=== PATIENT | female | born 1965 | race Caucasian/White ===

== ENCOUNTER 2024-06-22 14:09 | Inpatient (IN) | payer OTHER, SELFPAY ==
[2024-06-22 14:21] VITALS: BP 117/80; BP 121/81; PULSE 83; PULSE 91; RESP 16; TEMP 36.6; O2SAT 95; O2SAT 96; BMI 37.8
[2024-06-22 16:00] VITALS: BP 112/72; PULSE 96; RESP 16; TEMP 36.8; O2SAT 96
--- NOTE | 2024-06-22 17:02 | ED.GENADULT ---
HPI - General Adult General Chief complaint: General Medical Stated complaint: PER STAFF @ [facility] MORE DECONDITIONED,NOT DOING ADL Time Seen by Provider: 06/22/24 16:15 Source: patient and EMS Mode of arrival: EMS Limitations: no limitations History of Present Illness ED Provider: Dr. Nikky Le HPI narrative: Patient comes to the emergency room via ambulance from a [facility]. According to EMS, the patient got sent to the emergency room because she has not been participating in her group activities and is refusing activities of daily living. Patient denies SI or HI. According to the patient, patient states that today she did not want to take a shower because it is cold and they sent her here to the emergency room. Related Data Allergies Allergy/AdvReac Type Severity Reaction Status Date / Time Penicillins [PENICILLINS] Allergy Unknown RASH Verified 06/22/24 14:24 quetiapine [From SEROQUEL] Allergy Unknown DYSTONIA Verified 06/22/24 14:24 Review of Systems Review of Systems: Constitutional : No Weight loss, No Fever, No Chills, No Night Sweats, No Fatigue, No Malaise ENT/Mouth : No Hearing loss, No Ear Pain, No Nasal Congestion, No Sinus Pain, No Hoarseness, No sore throat, No Rhinorrhea, No Swallowing Difficulty Eyes: No Eye Pain, No Swelling, No Redness, No Foreign Body, No Discharge, No Vision Changes Cardiovascular : No Chest Pain, No SOB, No Dyspnea on Exertion, No Orthopnea, No Edema, No Palpitations Respiratory : No Cough, No Sputum, No Wheezing, No Smoke Exposure, No Dyspnea Gastrointestinal : No Nausea, No Vomiting, No Diarrhea, No Constipation, No abdominal Pain, No Hematochezia, No Melena Genitourinary : no irregular bleeding, No Dysuria, No Urinary Frequency, No Hematuria, No Urinary Incontinence, No Urgency, No Flank Pain, No Urinary Flow Changes, No Hesitancy Musculoskeletal : No joint pain, No Myalgias, No Joint Swelling Skin : No Skin Lesions, No rash Neuro : No Weakness, No Numbness, No Paresthesias, No Loss of Consciousness, No Dizziness, No Headache Psych : No Anxiety/Panic, No Depression, no SI or HI Heme/Lymph: No Bruising, No Bleeding,No Lymphadenopathy Endocrine : No Polyuria, No Polydipsia, No Temperature Intolerance [facility] Past Medical History Medical History (Updated 06/23/24 @ 02:08 by Nikky Le MD) Alcohol dependence Social History Social History Alcohol intake: former Smoked in Last 30 Days: No Use of substances other than those prescribed or required for medical reasons: No Advance Directives: No Advance Directives Information Provided: No Do you have a plan to hurt others: No Plan Patient : No Physical Exam ED Vital Signs: Vital Signs - 24 hr 06/22/24 14:21 06/22/24 16:00 Temperature 97.9 F 98.2 F Pulse Rate 91 96 Respiratory Rate 16 16 Blood Pressure 121/81 112/72 Pulse Oximetry 96 96 Oxygen Delivery Method Room Air Room Air BMI result Body Mass Index 37.8 Const Other: Appearance: Alert. Oriented X3. No acute distress. Eyes: Pupils equal, round and reactive to light. ENT: Pharynx normal. Neck: Normal inspection. Neck supple. No lymph nodes noted. No crepitus CVS: Normal heart rate and rhythm. Pulses normal. Normal S1 and S2 Respiratory: No respiratory distress. Breath sounds normal. No Wheezing. No rales Abdomen: Soft and nontender. No rigidity. No distention. Skin: Skin warm and dry. Normal skin color. Normal skin turgor. Extremities: No lower extremity edema. No Lacerations. No Rash Neuro: Oriented X 3. No motor deficit. No sensory deficit. Moving all extremities. No slurred speech. CN 2 through 12 grossly intact Psych: calm, cooperative, normal affect Course Course Course Narrative: All of patient's labs pending Care team consult pending Patient is not SI or HI, section 12 is not indicated at this time. Medications Administered Discontinued Medications Generic Name Dose Route Start Last Admin Trade Name Radha PRN Reason Stop Dose Admin Trazodone HCl 50 mg 06/22/24 22:39 06/22/24 23:12 Trazodone Hcl 50 Mg Tablet PO 06/22/24 22:40 50 mg ONCE ONE Administration Medical Decision Making Medical Decision Making [facility] Narrative: My interpretation of labs, normal hematology and chemistry, normal LFTs, urinalysis negative, the urine has a large number of squamous epithelial cells, ETOH negative, ethanol level negative Care team evaluated the patient: Recommendations inpatient level of care for depression. Patient is on a Section 12 low. Lab Data 06/22/24 17:54 06/22/24 17:48 Labs: Lab Results 06/22/24 06/22/24 06/22/24 Range/Units 17:48 17:54 18:03 WBC 5.9 (4.8-10.8) X10*3/uL RBC 4.10 L (4.20-5.50) X10*6/uL Hgb 12.8 (12.0-16.0) g/dl Hct 38.2 (37.0-47.0) % MCV 93.2 (80.0-98.0) fL MCH 31.2 (27.0-33.0) pg MCHC 33.5 (31.0-35.0) g/dl RDW 12.5 (11.0-16.0) % Plt Count 273 (160-400) X10*3/uL MPV 8.5 L (9.4-12.3) fL Immature Gran % (Auto) 0.3 (0.0-0.4) % Neut % (Auto) 61.7 (45-73) % Lymph % (Auto) 30.6 (20-40) % [place] % (Auto) 5.4 (2-11) % Eos % (Auto) 1.5 (0-4) % Baso % (Auto) 0.5 (0-2) % Lymph # (Auto) 1.8 (1.2-4.9) X10*3/uL [place] # (Auto) 0.3 (0.1-1.2) X10*3/uL Eos # (Auto) 0.1 (0.0-0.4) X10*3/uL Baso # (Auto) 0.0 (0.0-0.2) X10*3/uL Abs Immat Gran (auto) 0.02 (0.00-0.03) X10*3/uL Absolute Neuts (auto) 3.6 (2.0-8.3) x10*3/uL Absolute Nucleated RBC 0.000 (0.0-0.012) X10*3/uL Nucleated RBC % (auto) 0.0 (0.0-0.2) /100WBC Sodium 142 (135-145) mmol/L Potassium 4.1 (3.3-5.1) mmol/L Chloride 108 (96-108) mmol/L Carbon Dioxide 23 (22-29) mmol/L Anion Gap 15 (12-20) BUN 11 (9-16) mg/dL Creatinine 0.63 (0.5-1.4) mg/dL Estim Creat Clear Calc 99.8 Estimated GFR > 60 Random Glucose 77 (60-115) mg/dL Calcium 9.4 (8.4-10.2) mg/dL Total Bilirubin 0.4 (0.0-1.0) mg/dL Direct Bilirubin 0.1 (0.0-0.5) mg/dL AST 22 (5-31) U/L ALT 21 (0-31) U/L Alkaline Phosphatase 52 (39-117) U/L Total Protein 6.8 (6.5-8.0) g/dL Albumin 4.2 (3.5-5.0) g/dL Urine Color Dark Yellow Urine Appearance Clear Urine pH 6.0 (5.0-9.0) Ur Specific [place] >= 1.030 H (1.005-1.025) Urine Protein Negative (Neg-Trace) mg/dL Urine Glucose (UA) Negative (Negative) mg/dL Urine Ketones 40 (Negative) mg/dL Urine Blood Negative (Negative) Urine Nitrite Negative (Negative) Ur Leukocyte Esterase Small (1+) H (Negative) Urine RBC 0-2 (0-2) /HPF Urine WBC 0-5 (0-5) /HPF Ur Squamous Epith Cells 6-10 (0-2) /HPF Urine Bacteria 2+ (None Seen) Hyaline Casts 3-5 (0-2) /LPF Salicylates < 5.0 L (15-30) mg/dL Urine Opiates Screen Not Detected (Not Detect) Ur Buprenorphine Scrn Not Detected (Not Detect) ng/mL Ur Oxycodone Screen Not Detected (Not Detect) ng/mL Urine Methadone Screen Not Detected (Not Detect) ng/mL Urine Fentanyl Screen Not Detected (Not Detect) Acetaminophen < 3 (<30) mcg/mL Ur Barbiturates Screen Not Detected (Not Detect) Ur Phencyclidine Scrn Not Detected (Not Detect) Ur Amphetamines Screen Not Detected (Not Detect) U Benzodiazepines Scrn Not Detected (Not Detect) Urine Cocaine Screen Not Detected (Not Detect) U Marijuana (THC) Screen Not Detected (Not Detect) Ethyl Alcohol < 10 mg/dL Critical Care Time Critical Care Time Critical Care Time: Yes Total Critical Care Time: 60 Attestation: I have personally provided critical care time. Time includes review of lab data, radiology results, discussion with consultants, and monitoring for potential decompensation. Intervention performed as documented. Discharge Plan Discharge Clinical Impression: Depression Patient Disposition: Still a Patient Print Language: Romanian
[2024-06-22 17:57] LABS: MANUAL DIFF FLAG NO
[2024-06-22 18:02] LABS: Basophils Percent Auto 0.5 % (0-2); Eosinophils Absolute Auto 0.1 X10*3/uL (0.0-0.4); Eosinophils Percent Auto 1.5 % (0-4); Hematocrit 38.2 % (37.0-47.0); Hemoglobin 12.8 g/dl (12.0-16.0); Imm Gran Abs Auto 0.02 X10*3/uL (0.00-0.03); Imm Gran Pct Auto 0.3 % (0.0-0.4); Lymphocytes Absolute Auto 1.8 X10*3/uL (1.2-4.9); Lymphocytes Percent Auto 30.6 % (20-40); Mean Corpuscular HGB Conc 33.5 g/dl (31.0-35.0); Mean Corpuscular Hemoglobin 31.2 pg (27.0-33.0); Mean Corpuscular Volume 93.2 fL (80.0-98.0); Mean Platelet Volume 8.5 fL (9.4-12.3); Monocytes Absolute Auto 0.3 X10*3/uL (0.1-1.2); Monocytes Percent Auto 5.4 % (2-11); Neutrophils Absolute Auto 3.6 x10*3/uL (2.0-8.3); Neutrophils Percent Auto 61.7 % (45-73); Platelet Count 273 X10*3/uL (160-400); Red Cell Distribution Width 12.5 % (11.0-16.0); White Blood Count 5.9 X10*3/uL (4.8-10.8)
[2024-06-22 18:09] LABS: Appearance Urine Clear; Color Urine Dark Yellow; Glucose Urine UA Negative (Negative); Leukocyte Esterase Urine Small (1+) (Negative); Nitrite Urine Negative (Negative); Specific Gravity - Urine >= 1.030 (1.005-1.025); UMIC TRIGGER UACC YES; Urine Blood Negative (Negative); Urine Ketones 40 mg/dL (Negative); Urine Protein Negative (Neg-Trace)
[2024-06-22 18:15] LABS: Ethanol < 10 mg/dL
[2024-06-22 18:16] LABS: Alanine Aminotransferase 21 U/L (0-31); Albumin Level 4.2 g/dL (3.5-5.0); Alkaline Phosphatase 52 U/L (39-117); Anion Gap 15 (12-20); Aspartate Amino Transferase 22 U/L (5-31); Bilirubin Direct 0.1 mg/dL (0.0-0.5); Bilirubin Total 0.4 mg/dL (0.0-1.0); Blood Urea Nitrogen 11 mg/dL (9-16); Calcium 9.4 mg/dL (8.4-10.2); Carbon Dioxide 23 mmol/L (22-29); Chloride 108 mmol/L (96-108); Creatinine Clr Calc Pharmacy 99.8; Estimated Glomerular Filt Rate > 60; Glucose Random 77 mg/dL (60-115); Potassium 4.1 mmol/L (3.3-5.1); Sodium 142 mmol/L (135-145); Total Protein 6.8 g/dL (6.5-8.0)
--- NOTE | 2024-06-22 18:17 | MHC.CARE ---
T/W spoke to Renaldo Cheng (marketing program manager) he reported that patient has been declining over the course of approximately the past 2 weeks. He reported that patient takes some of her medications, but not fully compliant. He reported that patient refused to meet with her psychiatrist who checks in with [facility] at [facility]. He also reported patient deficated on herself twice and was unable to take shower afterwards on her own, she required verbal direction of how to shower and where to go. He reported at baseline she is fully alert, able to care for self and stays in contact with her family. Renaldo reported that they will hold patients bed at the house for several days and is requesting to be in communication once dispo is determined.
[2024-06-22 18:18] LABS: Acetaminophen LAB < 3 mcg/mL (<30); Salicylate < 5.0 mg/dL (15-30)
[2024-06-22 18:22] LABS: Amphetamine Screen Urine Not Detected (Not Detect); Barbiturates, Urine Not Detected (Not Detect); Benzodiazepines Screen Urine Not Detected (Not Detect); Buprenorphine Scr Not Detected (Not Detect); Cannabinoid Screen Urine Not Detected (Not Detect); Cocaine Screen Urine Not Detected (Not Detect); Fentanyl, urine Not Detected (Not Detect); Methadone Screen, Urine Not Detected (Not Detect); Opiate Screen Urine Not Detected (Not Detect); Oxycodone Screen Urine Not Detected (Not Detect); Phencyclidine Screen Urine Not Detected (Not Detect)
[2024-06-22 18:26] LABS: Bacteria Urine 2+ (None Seen); RBC Urine 0-2 /HPF (0-2); UACC Culture Trigger YES; WBC Urine 0-5 /HPF (0-5)
--- NOTE | 2024-06-22 18:36 | PC.NURSE ---
CARE team at bedside to evaluate pt. pt continues to deny SI/HI - reports she just did not want to shower today . pt does not appear unkempt, non-odorous. she is slow to respond to questions, but a&Ox4, cooperative. flat in affect.
[2024-06-22] MEDS: traZODone HCL 50 MG TABLET PO (23:12)
--- NOTE | 2024-06-23 | ECG_ITS ---
Test Reason : med clearance Blood Pressure : */* mmHG Vent. Rate : 84 BPM Atrial Rate : 84 BPM P-R Int : 136 ms QRS Dur : 88 ms QT Int : 386 ms P-R-T Axes : 55 19 48 degrees QTcB Int : 456 ms Normal sinus rhythm Nonspecific T wave abnormality Abnormal ECG No previous ECGs available Referred By: Nikky Le Electronically Signed By: ALISIA DANG
--- NOTE | 2024-06-23 00:10 | PC.NURSE ---
client began talking loudly enough to hear from desk about being an alcoholic and how this ruined her life, she had walked out and was slow to follow directions to return to her room as peer was changed over. when in her room patient talked at staff and was redirected about this behavior. t/w asked her about addl medications, she spoke about being concerned about being homeless...
--- NOTE | 2024-06-23 04:39 | MHC.EDTECH ---
pt given AA book out of belongings to calm her down rn aware and allowed. book searched by t/w.
--- NOTE | 2024-06-23 04:51 | PC.NURSE ---
patient stands and staresat staff am i going to ? staf reassures client and t/w asked client if she was anxious and did she want anything for anxiety...patient stands silently.
--- NOTE | 2024-06-23 04:54 | PC.NURSE ---
patient seems to enjoy being around staff, watching staff
[2024-06-23] MEDS: LORazepam 0.5 MG TABLET PO ×3 (05:24→22:14)
[2024-06-23 08:40] VITALS: BP 130/87; PULSE 87; RESP 16; TEMP 36.9; O2SAT 99
[2024-06-23] MEDS: Venlafaxine HCl ER 150 MG CAP.ER.24H 300 MG PO (10:37)
[2024-06-23] MEDS: Omeprazole 20 MG CAPSULE.DR PO (10:37)
[2024-06-23] MEDS: buPROPion HCl XL 300 MG TAB.ER.24H PO (10:38)
--- NOTE | 2024-06-23 10:41 | PC.NURSE ---
this RN resumed care of pt at 0645. pt calm/cooperative throughout the shift at this time. ekg performed by tech as pt will be presented to the admissions team. med rec completed at this time - medications ordered by provider. ANA LUISA Marshall ([facility] - [phone]) was called at this time d/t Loxapine being unavailable at [facility]. Joanna states that staff member from [facility] will bring in the medication. will send to pharmacy when able. plan of care ongoing.
--- NOTE | 2024-06-23 11:10 | PC.NURSE ---
medication delivered from employee from [facility]. medication sent up to pharmacy at this time. will administer medication when able.
[2024-06-23 15:41] VITALS: BP 139/92; PULSE 93; RESP 16; TEMP 36.3; O2SAT 96
[2024-06-23 16:03] VITALS: BMI 30.5
--- NOTE | 2024-06-23 19:24 | PC.ADMIT ---
Bess was admitted to on a 3 day on 06/23/23 from [facility] for treatment of unspecified depressive disorder. Prior to admission, she was at [facility] and decompensated, not taking care of her ADL's and per crisis, was medication non-compliant. Upon admission she is calm, cooperative and fourthcoming. She reports she came to the hospital due to increased depression and low self-worth. She reports she has a history of alcohol use and has been sober since March of 2024 and states I have no desire to drink again. She reports she has had ongoing anxiety and depression due to low self esteem and possibility of being homeless. She denies SI/HI/AVH but does report a history of paranoia when taking Geodon but denies currently. She is focused, linear and logical. She reports difficulty chewing due to having no teeth but has a good appetite. She reports a history of insomnia which she takes medications for. She reports constipation on and off but reports having a BM today while in the ED. She denies current substance use and her tox screen was negative. She reports having chronic back pain and arthritis of bilateral knees as well as asthma that is under control. Skin check unremarkable. She was placed on 15 minute checks for safety.
[2024-06-23 19:32] LABS: Alanine Aminotransferase 27 U/L (0-31); Albumin Level 4.3 g/dL (3.5-5.0); Alkaline Phosphatase 53 U/L (39-117); Anion Gap 10 (12-20); Aspartate Amino Transferase 23 U/L (5-31); Bilirubin Total 0.3 mg/dL (0.0-1.0); Blood Urea Nitrogen 11 mg/dL (9-16); Calcium 9.7 mg/dL (8.4-10.2); Carbon Dioxide 28 mmol/L (22-29); Chloride 108 mmol/L (96-108); Creatinine Clr Calc Pharmacy 93.4; Estimated Glomerular Filt Rate > 60; Glucose Random 119 mg/dL (60-115); Potassium 3.7 mmol/L (3.3-5.1); Sodium 142 mmol/L (135-145)
[2024-06-23] MEDS: traZODone HCL 50 MG TABLET 150 MG PO ×2 (22:13→22:42)
[2024-06-23] MEDS: LOXAPINE 25 MG 25 EACH PO (22:14)
[2024-06-23] MEDS: LOXAPINE 10 MG 3 EACH PO (22:14)
[2024-06-23] MEDS: Docusate Sodium 100 MG CAPSULE PO (22:14)
[2024-06-24 07:30] VITALS: BP 118/74; PULSE 89; RESP 16; TEMP 36.3; O2SAT 97
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
[2024-06-24] MEDS: Docusate Sodium 100 MG CAPSULE PO ×2 (09:23→20:53)
[2024-06-24] MEDS: buPROPion HCl XL 300 MG TAB.ER.24H PO (09:23)
[2024-06-24] MEDS: Multivitamin TABLET 1 TAB PO (09:23)
[2024-06-24] MEDS: LORazepam 0.5 MG TABLET PO ×3 (09:23→20:54)
[2024-06-24] MEDS: Omeprazole 20 MG CAPSULE.DR PO (09:24)
[2024-06-24] MEDS: LOXAPINE 10 MG 3 EACH PO ×2 (09:24→20:52)
[2024-06-24] MEDS: Venlafaxine HCl ER 150 MG CAP.ER.24H 300 MG PO (09:24)
[2024-06-24 13:03] LABS: Cholesterol 166 mg/dL (<200); HDL Cholesterol 41 mg/dL (>40); LDL Cholesterol Calculated 106 mg/dL (<100); Triglycerides 96 mg/dL (<150)
[2024-06-24 20:00] VITALS: BP 112/70; PULSE 97; RESP 14; TEMP 36.4; O2SAT 95
[2024-06-24] MEDS: LOXAPINE 25 MG 25 EACH PO (20:51)
[2024-06-24] MEDS: diphenhydrAMINE HCL 25 MG CAPSULE 50 MG PO (20:53)
[2024-06-24] MEDS: traZODone HCL 100 MG TABLET 300 MG PO (20:54)
[2024-06-25] MEDS: Nicotine Polacrilex Lozenge 2 MG LOZENGE BUCCAL (06:52)
[2024-06-25 07:31] VITALS: BP 120/79; PULSE 115; RESP 20; TEMP 36.4; O2SAT 94
[2024-06-25] MEDS: Nicotine 21 MG PATCH.TD24 TRANSDERMA (08:38)
[2024-06-25] MEDS: Omeprazole 20 MG CAPSULE.DR PO (08:39)
[2024-06-25] MEDS: buPROPion HCl XL 300 MG TAB.ER.24H PO (08:39)
[2024-06-25] MEDS: Multivitamin TABLET 1 TAB PO (08:39)
[2024-06-25] MEDS: Venlafaxine HCl ER 150 MG CAP.ER.24H 300 MG PO (08:39)
[2024-06-25] MEDS: Docusate Sodium 100 MG CAPSULE PO ×2 (08:39→22:18)
[2024-06-25] MEDS: LORazepam 0.5 MG TABLET PO ×2 (08:39→15:20)
[2024-06-25] MEDS: Nystatin Powder 15 GM BOTTLE 1 APPL TOPICAL (08:40)
[2024-06-25] MEDS: LOXAPINE 10 MG 3 EACH PO ×2 (10:28→22:18)
[2024-06-25] MEDS: hydrOXYzine HCL 25 MG TABLET PO (11:29)
[2024-06-25] MEDS: Naltrexone HCl 50 MG TABLET PO (15:47)
--- NOTE | 2024-06-25 16:10 | P.PNPSI_ITS ---
Subjective Subjective Date of Service: 06/25/24 Reason For Visit: Crisis Subjective Notes: Conditional Voluntary Interim History: Pt staring, reports she hears staff here talking about her, saying that she is a pig. She is fixated that she is going to be forced to have ECT. She reports other people are acting very strange towards her. She reports other people can see her naked. She reports she can read people's thoughts and they are all about her. She denies SI/HI. She is suspicious and guarded. Medication Compliance: Yes Diagnostics Vital Signs (24Hr): Vital Signs - 24 hr 06/24/24 20:00 06/25/24 07:31 Temperature 97.5 F 97.5 F Pulse Rate 97 115 H Respiratory Rate 14 20 Blood Pressure 112/70 120/79 Pulse Oximetry 95 94 Oxygen Delivery Method Room Air Room Air BMI result Body Mass Index 30.5 Labs 06/22/24 17:54 06/23/24 19:02 Labs: Laboratory Results - last 48 hr 06/23/24 06/24/24 19:02 11:37 Sodium 142 Potassium 3.7 Chloride 108 Carbon Dioxide 28 Anion Gap 10 L BUN 11 Creatinine 0.60 Estim Creat Clear Calc 93.4 Estimated GFR > 60 Random Glucose 119 H Calcium 9.7 Total Bilirubin 0.3 AST 23 ALT 27 Alkaline Phosphatase 53 Total Protein 7.0 Albumin 4.3 Triglycerides 96 Cholesterol 166 LDL Cholesterol, Calc 106 H HDL Cholesterol 41 Medications Medications Current Medications Acetaminophen (Acetaminophen 325 Mg Tablet) 650 mg PO Q6H PRN PRN Reason: Headache/Pain Mild Scale (1-3) Al Hydroxide/Mg Hydroxide (Magnesium Hydrox/Alum Hydrox 30 Ml Oral.Susp) 30 ml PO Q6H PRN PRN Reason: Heartburn/Nausea Bupropion HCl (Bupropion Hcl Xl 300 Mg Tab.Er.24h) 300 mg PO DAILY [facility] Last Admin: 06/25/24 08:39 Dose: 300 mg Diphenhydramine HCl (Diphenhydramine Hcl 25 Mg Capsule) 50 mg PO BEDTIME [facility] Last Admin: 06/24/24 20:53 Dose: 50 mg Docusate Sodium (Docusate Sodium 100 Mg Capsule) 100 mg PO BID [facility] Last Admin: 06/25/24 08:39 Dose: 100 mg Hydroxyzine HCl (Hydroxyzine Hcl 25 Mg Tablet) 25 mg PO Q6H PRN PRN Reason: Anxiety Last Admin: 06/25/24 11:29 Dose: 25 mg Lorazepam (Lorazepam 0.5 Mg Tablet) 0.5 mg PO TID [facility] Last Admin: 06/25/24 15:20 Dose: 0.5 mg Magnesium Hydroxide (Milk Of Magnesia 30 Ml Oral.Susp) 30 ml PO DAILY PRN PRN Reason: Constipation Multivitamins/Vitamin C (Multivitamin Tablet) 1 tab PO DAILY [facility] Last Admin: 06/25/24 08:39 Dose: 1 tab Naltrexone HCl (Naltrexone Hcl 50 Mg Tablet) 50 mg PO DAILY PRN PRN Reason: Withdrawal Symptoms Last Admin: 06/25/24 15:47 Dose: 50 mg Nicotine (Nicotine 21 Mg Patch.Td24) 21 mg TRANSDERMA DAILY [facility] Last Admin: 06/25/24 08:38 Dose: 21 mg Nicotine Polacrilex (Nicotine Polacrilex Lozenge 2 Mg Lozenge) 2 mg BUCCAL Q1H PRN PRN Reason: Nicotine Cravings Last Admin: 06/25/24 06:52 Dose: 2 mg Pt Own (Loxapine 25 (Mg)) 25 mg PO BEDTIME [facility] Last Admin: 06/24/24 20:51 Dose: 25 mg Pt Own (Loxapine 10 (Mg)) 3 each PO BID [facility] Last Admin: 06/25/24 10:28 Dose: 3 each Nystatin (Nystatin Powder 15 Gm Bottle) 1 appl TOPICAL DAILY [facility]; Protocol Last Admin: 06/25/24 08:40 Dose: 1 appl Omeprazole (Omeprazole 20 Mg Capsule.Dr) 20 mg PO DAILY [facility] Last Admin: 06/25/24 08:39 Dose: 20 mg Trazodone HCl (Trazodone Hcl 100 Mg Tablet) 300 mg PO BEDTIME [facility] Last Admin: 06/24/24 20:54 Dose: 300 mg Venlafaxine HCl (Venlafaxine Hcl Er 150 Mg Cap.Er.24h) 300 mg PO DAILY [facility] Last Admin: 06/25/24 08:39 Dose: 300 mg Allergies Allergies Allergy/AdvReac Type Severity Reaction Status Date / Time Penicillins [PENICILLINS] Allergy Unknown RASH Verified 06/22/24 14:24 quetiapine [From SEROQUEL] Allergy Unknown DYSTONIA Verified 06/22/24 14:24 Assessment & Plan Assessment & Plan (1) Schizoaffective disorder: Status: Acute Code(s): F25.9 - Schizoaffective disorder, unspecified (2) PTSD (post-traumatic stress disorder): Status: Acute Code(s): F43.10 - Post-traumatic stress disorder, unspecified (3) Alcohol use disorder: Status: Acute Code(s): F10.90 - Alcohol use, unspecified, uncomplicated Plan Patient is a 58-year-old female with history of schizoaffective disorder, PTSD and alcohol use disorder, who presented to ER via ambulance from [facility] due to increased depression and not attending to her ADLs secondary to medication noncompliance. Plan: 06/25 very psychotic, with paranoid delusions. She also presents with catatonia like symptoms including blank staring. She is on 3 antidepressants high doses, that will only worsen psychosis. will dc wellbutrin, effexor, will cut down trazodone. Will increase ativan 1mg po TID. will continue loxepine. Reason for continued inpatient stay Substantial Risk for: inability to function Time Spent With Patient Time: Total time managing care of this patient today ____ minutes.
[2024-06-25] MEDS: LORazepam 1 MG TABLET PO ×2 (17:10→22:17)
[2024-06-25] MEDS: OLANZapine 5 MG TABLET PO (17:11)
[2024-06-25 20:00] VITALS: BP 98/67; PULSE 90; RESP 16; TEMP 36.4; O2SAT 91
[2024-06-25] MEDS: traZODone HCL 100 MG TABLET 300 MG PO (22:17)
[2024-06-25] MEDS: diphenhydrAMINE HCL 25 MG CAPSULE 50 MG PO (22:17)
[2024-06-25] MEDS: LOXAPINE 25 MG 25 EACH PO (22:18)
[2024-06-26 08:00] VITALS: BP 127/61; PULSE 89; RESP 18; TEMP 36.4; O2SAT 93
[2024-06-26] MEDS: Omeprazole 20 MG CAPSULE.DR PO (09:29)
[2024-06-26] MEDS: Multivitamin TABLET 1 TAB PO (09:29)
[2024-06-26] MEDS: Docusate Sodium 100 MG CAPSULE PO ×2 (09:29→22:01)
[2024-06-26] MEDS: LORazepam 1 MG TABLET PO ×3 (09:29→22:01)
[2024-06-26] MEDS: Nystatin Powder 15 GM BOTTLE 1 APPL TOPICAL (09:36)
[2024-06-26] MEDS: LOXAPINE 10 MG 3 EACH PO ×2 (09:38→22:09)
--- NOTE | 2024-06-26 10:29 | P.PNPSI_ITS ---
Subjective Subjective Date of Service: 06/26/24 Reason For Visit: Crisis Subjective Notes: Conditional Voluntary Interim History: Pt presents with same presentation as yesterday. Pt staring, reports she hears staff here talking about her, saying that she is a pig. She is fixated that she is going to be forced to have ECT. She reports other people are acting very strange towards her. She reports other people can see her naked. She reports she can read people's thoughts and they are all about her. She denies SI/HI. She is suspicious and guarded. Review of Systems Review of Systems Constitutional : No Weight loss, No Fever, No Chills, No Night Sweats, No Fatigue, No Malaise ENT/Mouth : No Hearing loss, No Ear Pain, No Nasal Congestion, No Sinus Pain, No Hoarseness, No sore throat, No Rhinorrhea, No Swallowing Difficulty Eyes: No Eye Pain, No Swelling, No Redness, No Foreign Body, No Discharge, No Vision Changes Cardiovascular : No Chest Pain, No SOB, No Dyspnea on Exertion, No Orthopnea, No Edema, No Palpitations Respiratory : No Cough, No Sputum, No Wheezing, No Smoke Exposure, No Dyspnea Gastrointestinal : No Nausea, No Vomiting, No Diarrhea, No Constipation, No abdominal Pain, No Hematochezia, No Melena Genitourinary : no irregular bleeding, No Dysuria, No Urinary Frequency, No Hematuria, No Urinary Incontinence, No Urgency, No Flank Pain, No Urinary Flow Changes, No Hesitancy Musculoskeletal : No joint pain, No Myalgias, No Joint Swelling Skin : No Skin Lesions, No rash Neuro : No Weakness, No Numbness, No Paresthesias, No Loss of Consciousness, No Dizziness, No Headache Psych : No Anxiety/Panic, No Depression, no SI or HI Heme/Lymph: No Bruising, No Bleeding,No Lymphadenopathy Endocrine : No Polyuria, No Polydipsia, No Temperature Intolerance Constitutional: Reports as per HPI Eyes: Reports as per HPI Reports as per HPI Cardiovascular: Reports as per HPI Respiratory: Reports as per HPI Gastrointestinal: Reports as per HPI Musculoskeletal: Reports as per HPI Skin/Breast: Reports as per HPI Reports as per HPI Psychiatric: Reports as per HPI Endocrine: Reports as per HPI Hematologic/Lymphatic: Reports as per HPI Allergic/Immunologic: Reports as per HPI Diagnostics Vital Signs (24Hr): Vital Signs - 24 hr 06/25/24 20:00 06/26/24 08:00 Temperature 97.6 F 97.5 F Pulse Rate 90 89 Respiratory Rate 16 18 Blood Pressure 98/67 127/61 Pulse Oximetry 91 L 93 Oxygen Delivery Method Room Air Room Air BMI result Body Mass Index 30.5 Labs 06/22/24 17:54 06/23/24 19:02 Labs: Laboratory Results - last 48 hr 06/24/24 11:37 Triglycerides 96 Cholesterol 166 LDL Cholesterol, Calc 106 H HDL Cholesterol 41 Medications Medications Current Medications Acetaminophen (Acetaminophen 325 Mg Tablet) 650 mg PO Q6H PRN PRN Reason: Headache/Pain Mild Scale (1-3) Al Hydroxide/Mg Hydroxide (Magnesium Hydrox/Alum Hydrox 30 Ml Oral.Susp) 30 ml PO Q6H PRN PRN Reason: Heartburn/Nausea Diphenhydramine HCl (Diphenhydramine Hcl 25 Mg Capsule) 50 mg PO BEDTIME [facility] Last Admin: 06/25/24 22:17 Dose: 50 mg Docusate Sodium (Docusate Sodium 100 Mg Capsule) 100 mg PO BID [facility] Last Admin: 06/26/24 09:29 Dose: 100 mg Hydroxyzine HCl (Hydroxyzine Hcl 25 Mg Tablet) 25 mg PO Q6H PRN PRN Reason: Anxiety Last Admin: 06/25/24 11:29 Dose: 25 mg Lorazepam (Lorazepam 1 Mg Tablet) 1 mg PO TID [facility] Last Admin: 06/26/24 09:29 Dose: 1 mg Magnesium Hydroxide (Milk Of Magnesia 30 Ml Oral.Susp) 30 ml PO DAILY PRN PRN Reason: Constipation Multivitamins/Vitamin C (Multivitamin Tablet) 1 tab PO DAILY [facility] Last Admin: 06/26/24 09:29 Dose: 1 tab Naltrexone HCl (Naltrexone Hcl 50 Mg Tablet) 50 mg PO DAILY PRN PRN Reason: Withdrawal Symptoms Last Admin: 06/25/24 15:47 Dose: 50 mg Nicotine (Nicotine 21 Mg Patch.Td24) 21 mg TRANSDERMA DAILY [facility] Last Admin: 06/26/24 09:29 Dose: Not Given Nicotine Polacrilex (Nicotine Polacrilex Lozenge 2 Mg Lozenge) 2 mg BUCCAL Q1H PRN PRN Reason: Nicotine Cravings Last Admin: 06/25/24 06:52 Dose: 2 mg Pt Own (Loxapine 25 (Mg)) 25 mg PO BEDTIME [facility] Last Admin: 06/25/24 22:18 Dose: 25 mg Pt Own (Loxapine 10 (Mg)) 3 each PO BID [facility] Last Admin: 06/26/24 09:38 Dose: 3 each Nystatin (Nystatin Powder 15 Gm Bottle) 1 appl TOPICAL DAILY [facility]; Protocol Last Admin: 06/26/24 09:36 Dose: 1 appl Omeprazole (Omeprazole 20 Mg Capsule.Dr) 20 mg PO DAILY [facility] Last Admin: 06/26/24 09:29 Dose: 20 mg Trazodone HCl (Trazodone Hcl 100 Mg Tablet) 300 mg PO BEDTIME [facility] Last Admin: 06/25/24 22:17 Dose: 300 mg Allergies Allergies Allergy/AdvReac Type Severity Reaction Status Date / Time Penicillins [PENICILLINS] Allergy Unknown RASH Verified 06/22/24 14:24 quetiapine [From SEROQUEL] Allergy Unknown DYSTONIA Verified 06/22/24 14:24 Assessment & Plan Assessment & Plan (1) Schizoaffective disorder: Status: Acute Code(s): F25.9 - Schizoaffective disorder, unspecified (2) PTSD (post-traumatic stress disorder): Status: Acute Code(s): F43.10 - Post-traumatic stress disorder, unspecified (3) Alcohol use disorder: Status: Acute Code(s): F10.90 - Alcohol use, unspecified, uncomplicated Plan Patient is a 58-year-old female with history of schizoaffective disorder, PTSD and alcohol use disorder, who presented to ER via ambulance from [facility] due to increased depression and not attending to her ADLs secondary to medication noncompliance. Plan: 06/25 very psychotic (AH), with paranoid delusions. She also presents with catatonia like symptoms including blank staring. She is on 3 antidepressants high doses, that will only worsen psychosis. will dc wellbutrin, effexor, will cut down trazodone. Will increase ativan 1mg po TID. will continue loxepine. 06/26 continue tx. Reason for continued inpatient stay Substantial Risk for: inability to function Time Spent With Patient Time: Total time managing care of this patient today ____ minutes.
[2024-06-26 19:50] VITALS: BP 106/63; PULSE 84; RESP 14; TEMP 36.6; O2SAT 93
[2024-06-26] MEDS: diphenhydrAMINE HCL 25 MG CAPSULE 50 MG PO (22:00)
[2024-06-26] MEDS: traZODone HCL 50 MG TABLET 150 MG PO (22:01)
[2024-06-26] MEDS: LOXAPINE 25 MG 25 EACH PO (22:09)
[2024-06-27 07:35] VITALS: BP 110/75; PULSE 100; RESP 14; TEMP 36.2; O2SAT 96
--- NOTE | 2024-06-27 09:02 | P.PNPSI_ITS ---
Subjective Subjective Date of Service: 06/27/24 Reason For Visit: Crisis Subjective Notes: Conditional Voluntary Interim History: Keeping to self. retracted 3 day notice. showered. thought blocking with delayed responses; when asked if this is normal for patient, she stated, this is what drugs and alcohol did to my brain . Patient anxious regarding ECT, she reports discussing ECT once with Dr. Alegre but don't want it ; pt was informed that was not part of the treatment plan at this time. She expressed concern regarding the cameras on the unit and asked if they are able to see her while she is in the shower or room; pt was educated that cameras are only in common areas. she denies SI/HI/VH/AH. Medication Compliance: Yes Side effects from medications: No Attending Groups: No Review of Systems Constitutional: Reports as per HPI Eyes: Reports as per HPI Reports as per HPI Cardiovascular: Reports as per HPI Respiratory: Reports as per HPI Gastrointestinal: Reports as per HPI Musculoskeletal: Reports as per HPI Skin/Breast: Reports as per HPI Reports as per HPI Psychiatric: Reports as per HPI Endocrine: Reports as per HPI Hematologic/Lymphatic: Reports as per HPI Allergic/Immunologic: Reports as per HPI Mental Status Exam Mental Status Exam Narrative: Pt is alert and oriented; behavior is cooperative and calm; dressed in hospital attire; mood is described as okay , blunted affect; eye contact appropriate; Speech is normal rate, volume, not pressured; appears thought blocking, delayed responses to questions; denies SI/HI/VH/AH. Diagnostics Vital Signs (24Hr): Vital Signs - 24 hr 06/26/24 19:50 06/27/24 07:35 Temperature 97.9 F 97.2 F Pulse Rate 84 100 Respiratory Rate 14 14 Blood Pressure 106/63 110/75 Pulse Oximetry 93 96 Oxygen Delivery Method Room Air Room Air BMI result Body Mass Index 30.5 Labs 06/22/24 17:54 06/23/24 19:02 Medications Medications Current Medications Acetaminophen (Acetaminophen 325 Mg Tablet) 650 mg PO Q6H PRN PRN Reason: Headache/Pain Mild Scale (1-3) Al Hydroxide/Mg Hydroxide (Magnesium Hydrox/Alum Hydrox 30 Ml Oral.Susp) 30 ml PO Q6H PRN PRN Reason: Heartburn/Nausea Diphenhydramine HCl (Diphenhydramine Hcl 25 Mg Capsule) 50 mg PO BEDTIME [facility] Last Admin: 06/26/24 22:00 Dose: 50 mg Docusate Sodium (Docusate Sodium 100 Mg Capsule) 100 mg PO BID [facility] Last Admin: 06/26/24 22:01 Dose: 100 mg Hydroxyzine HCl (Hydroxyzine Hcl 25 Mg Tablet) 25 mg PO Q6H PRN PRN Reason: Anxiety Last Admin: 06/25/24 11:29 Dose: 25 mg Lorazepam (Lorazepam 1 Mg Tablet) 1 mg PO TID [facility] Last Admin: 06/26/24 22:01 Dose: 1 mg Magnesium Hydroxide (Milk Of Magnesia 30 Ml Oral.Susp) 30 ml PO DAILY PRN PRN Reason: Constipation Multivitamins/Vitamin C (Multivitamin Tablet) 1 tab PO DAILY [facility] Last Admin: 06/26/24 09:29 Dose: 1 tab Naltrexone HCl (Naltrexone Hcl 50 Mg Tablet) 50 mg PO DAILY PRN PRN Reason: Withdrawal Symptoms Last Admin: 06/25/24 15:47 Dose: 50 mg Nicotine (Nicotine 21 Mg Patch.Td24) 21 mg TRANSDERMA DAILY [facility] Last Admin: 06/26/24 09:29 Dose: Not Given Nicotine Polacrilex (Nicotine Polacrilex Lozenge 2 Mg Lozenge) 2 mg BUCCAL Q1H PRN PRN Reason: Nicotine Cravings Last Admin: 06/25/24 06:52 Dose: 2 mg Pt Own (Loxapine 25 (Mg)) 25 mg PO BEDTIME [facility] Last Admin: 06/26/24 22:09 Dose: 25 mg Pt Own (Loxapine 10 (Mg)) 3 each PO BID [facility] Last Admin: 06/26/24 22:09 Dose: 3 each Nystatin (Nystatin Powder 15 Gm Bottle) 1 appl TOPICAL DAILY [facility]; Protocol Last Admin: 06/26/24 09:36 Dose: 1 appl Omeprazole (Omeprazole 20 Mg Capsule.Dr) 20 mg PO DAILY [facility] Last Admin: 06/26/24 09:29 Dose: 20 mg Trazodone HCl (Trazodone Hcl 50 Mg Tablet) 150 mg PO BEDTIME [facility] Last Admin: 06/26/24 22:01 Dose: 150 mg Allergies Allergies Allergy/AdvReac Type Severity Reaction Status Date / Time Penicillins [PENICILLINS] Allergy Unknown RASH Verified 06/22/24 14:24 quetiapine [From SEROQUEL] Allergy Unknown DYSTONIA Verified 06/22/24 14:24 Assessment & Plan Assessment & Plan (1) Schizoaffective disorder: Status: Acute Code(s): F25.9 - Schizoaffective disorder, unspecified (2) PTSD (post-traumatic stress disorder): Status: Acute Code(s): F43.10 - Post-traumatic stress disorder, unspecified (3) Alcohol use disorder: Status: Acute Code(s): F10.90 - Alcohol use, unspecified, uncomplicated Plan Patient is a 58-year-old female with history of schizoaffective disorder, PTSD and alcohol use disorder, who presented to ER via ambulance from [facility] due to increased depression and not attending to her ADLs secondary to medication noncompliance. Plan: 06/25 very psychotic (AH), with paranoid delusions. She also presents with catatonia like symptoms including blank staring. She is on 3 antidepressants high doses, that will only worsen psychosis. will dc wellbutrin, effexor, will cut down trazodone. Will increase ativan 1mg po TID. will continue loxepine. 06/26 continue tx. 06/27: Keeping to self. retracted 3 day notice. showered. thought blocking with delayed responses; when asked if this is normal for patient, she stated, this is what drugs and alcohol did to my brain . Patient anxious regarding ECT, she reports discussing ECT once with Dr. Alegre but don't want it ; pt was informed that was not part of the treatment plan at this time. She expressed concern regarding the cameras on the unit and asked if they are able to see her while she is in the shower or room; pt was educated that cameras are only in common areas. she denies SI/HI/VH/AH. Continue current tx plan. Patient educated on: diagnosis and medication risk/benefits Reason for continued inpatient stay Substantial Risk for: med/psych decompensation Time Spent With Patient Time: Total time managing care of this patient today _20___ minutes.
[2024-06-27] MEDS: Nicotine 21 MG PATCH.TD24 TRANSDERMA (09:05)
[2024-06-27] MEDS: Docusate Sodium 100 MG CAPSULE PO ×2 (09:06→22:22)
[2024-06-27] MEDS: Omeprazole 20 MG CAPSULE.DR PO (09:06)
[2024-06-27] MEDS: LORazepam 1 MG TABLET PO ×3 (09:06→22:23)
[2024-06-27] MEDS: Multivitamin TABLET 1 TAB PO (09:06)
[2024-06-27] MEDS: LOXAPINE 10 MG 3 EACH PO ×2 (09:29→22:23)
[2024-06-27] MEDS: Nystatin Powder 15 GM BOTTLE 1 APPL TOPICAL (09:32)
[2024-06-27 19:59] VITALS: BP 104/65; PULSE 80; RESP 16; TEMP 36.4; O2SAT 92
[2024-06-27] MEDS: diphenhydrAMINE HCL 25 MG CAPSULE 50 MG PO (22:22)
[2024-06-27] MEDS: traZODone HCL 50 MG TABLET 150 MG PO (22:23)
[2024-06-27] MEDS: LOXAPINE 25 MG 25 EACH PO (22:23)
[2024-06-28 08:00] VITALS: BP 117/71; PULSE 106; RESP 16; TEMP 36.7; O2SAT 95
[2024-06-28] MEDS: Omeprazole 20 MG CAPSULE.DR PO (09:16)
[2024-06-28] MEDS: Docusate Sodium 100 MG CAPSULE PO ×2 (09:16→21:18)
[2024-06-28] MEDS: Multivitamin TABLET 1 TAB PO (09:16)
[2024-06-28] MEDS: LORazepam 1 MG TABLET PO (09:16)
[2024-06-28] MEDS: Nystatin Powder 15 GM BOTTLE 1 APPL TOPICAL (09:21)
--- NOTE | 2024-06-28 09:39 | HO.PSYCHPN ---
Subjective Subjective Date of Service: 06/28/24 Reason For Visit: Crisis Subjective Notes: Conditional Voluntary Interim History: pt continues thought blocking with delayed responses; please see SW note regarding pt's baseline and collateral obtained. Pt perseverative today regarding seeing her daughter before she dies; pt stated, I don't want to . My daughter has a retraining order on me and I want to see her before I . Start: Risperidal 1mg PO BID Increase Ativan to 2mg PO TID Medication Compliance: Yes Side effects from medications: No Attending Groups: No Review of Systems Constitutional: Reports as per HPI Eyes: Reports as per HPI Reports as per HPI Cardiovascular: Reports as per HPI Respiratory: Reports as per HPI Gastrointestinal: Reports as per HPI Musculoskeletal: Reports as per HPI Skin/Breast: Reports as per HPI Reports as per HPI Psychiatric: Reports as per HPI Endocrine: Reports as per HPI Hematologic/Lymphatic: Reports as per HPI Allergic/Immunologic: Reports as per HPI Mental Status Exam Mental Status Exam Narrative: Pt is alert and oriented; behavior is cooperative and calm; dressed in hospital attire; mood is described as anxious , blunted affect; eye contact appropriate; Speech is normal volume, not pressured; appears thought blocking, delayed responses to questions;focused on possibly dying today; denies SI/HI/VH/AH. Diagnostics Vital Signs (24Hr): Vital Signs - 24 hr 06/27/24 19:59 06/28/24 08:00 Temperature 97.6 F 98.0 F Pulse Rate 80 106 H Respiratory Rate 16 16 Blood Pressure 104/65 117/71 Pulse Oximetry 92 95 Oxygen Delivery Method Room Air Room Air BMI result Body Mass Index 30.5 Labs 06/22/24 17:54 06/23/24 19:02 Medications Medications Current Medications Acetaminophen (Acetaminophen 325 Mg Tablet) 650 mg PO Q6H PRN PRN Reason: Headache/Pain Mild Scale (1-3) Al Hydroxide/Mg Hydroxide (Magnesium Hydrox/Alum Hydrox 30 Ml Oral.Susp) 30 ml PO Q6H PRN PRN Reason: Heartburn/Nausea Diphenhydramine HCl (Diphenhydramine Hcl 25 Mg Capsule) 50 mg PO BEDTIME [facility] Last Admin: 06/27/24 22:22 Dose: 50 mg Docusate Sodium (Docusate Sodium 100 Mg Capsule) 100 mg PO BID [facility] Last Admin: 06/28/24 09:16 Dose: 100 mg Hydroxyzine HCl (Hydroxyzine Hcl 25 Mg Tablet) 25 mg PO Q6H PRN PRN Reason: Anxiety Last Admin: 06/25/24 11:29 Dose: 25 mg Lorazepam (Lorazepam 1 Mg Tablet) 1 mg PO TID [facility] Last Admin: 06/28/24 09:16 Dose: 1 mg Magnesium Hydroxide (Milk Of Magnesia 30 Ml Oral.Susp) 30 ml PO DAILY PRN PRN Reason: Constipation Multivitamins/Vitamin C (Multivitamin Tablet) 1 tab PO DAILY [facility] Last Admin: 06/28/24 09:16 Dose: 1 tab Naltrexone HCl (Naltrexone Hcl 50 Mg Tablet) 50 mg PO DAILY PRN PRN Reason: Withdrawal Symptoms Last Admin: 06/25/24 15:47 Dose: 50 mg Nicotine (Nicotine 21 Mg Patch.Td24) 21 mg TRANSDERMA DAILY [facility] Last Admin: 06/27/24 09:05 Dose: 21 mg Nicotine Polacrilex (Nicotine Polacrilex Lozenge 2 Mg Lozenge) 2 mg BUCCAL Q1H PRN PRN Reason: Nicotine Cravings Last Admin: 06/25/24 06:52 Dose: 2 mg Pt Own (Loxapine 25 (Mg)) 25 mg PO BEDTIME [facility] Last Admin: 06/27/24 22:23 Dose: 25 mg Pt Own (Loxapine 10 (Mg)) 3 each PO BID [facility] Last Admin: 06/27/24 22:23 Dose: 3 each Nystatin (Nystatin Powder 15 Gm Bottle) 1 appl TOPICAL DAILY [facility]; Protocol Last Admin: 06/28/24 09:21 Dose: 1 appl Omeprazole (Omeprazole 20 Mg Capsule.Dr) 20 mg PO DAILY [facility] Last Admin: 06/28/24 09:16 Dose: 20 mg Trazodone HCl (Trazodone Hcl 50 Mg Tablet) 150 mg PO BEDTIME [facility] Last Admin: 06/27/24 22:23 Dose: 150 mg Allergies Allergies Allergy/AdvReac Type Severity Reaction Status Date / Time Penicillins [PENICILLINS] Allergy Unknown RASH Verified 06/22/24 14:24 quetiapine [From SEROQUEL] Allergy Unknown DYSTONIA Verified 06/22/24 14:24 Assessment & Plan Assessment & Plan (1) Schizoaffective disorder: Status: Acute Code(s): F25.9 - Schizoaffective disorder, unspecified (2) PTSD (post-traumatic stress disorder): Status: Acute Code(s): F43.10 - Post-traumatic stress disorder, unspecified (3) Alcohol use disorder: Status: Acute Code(s): F10.90 - Alcohol use, unspecified, uncomplicated Plan Patient is a 58-year-old female with history of schizoaffective disorder, PTSD and alcohol use disorder, who presented to ER via ambulance from [facility] due to increased depression and not attending to her ADLs secondary to medication noncompliance. Plan: 06/25 very psychotic (AH), with paranoid delusions. She also presents with catatonia like symptoms including blank staring. She is on 3 antidepressants high doses, that will only worsen psychosis. will dc wellbutrin, effexor, will cut down trazodone. Will increase ativan 1mg po TID. will continue loxepine. 06/26 continue tx. 06/27: Keeping to self. retracted 3 day notice. showered. thought blocking with delayed responses; when asked if this is normal for patient, she stated, this is what drugs and alcohol did to my brain . Patient anxious regarding ECT, she reports discussing ECT once with Dr. Alegre but don't want it ; pt was informed that was not part of the treatment plan at this time. She expressed concern regarding the cameras on the unit and asked if they are able to see her while she is in the shower or room; pt was educated that cameras are only in common areas. she denies SI/HI/VH/AH. Continue current tx plan. 06/28: pt continues thought blocking with delayed responses; please see SW note regarding pt's baseline and collateral obtained. Pt perseverative today regarding seeing her daughter before she dies; pt stated, I don't want to . My daughter has a retraining order on me and I want to see her before I . Start: Risperidal 1mg PO BID Increase Ativan to 2mg PO TID Patient educated on: diagnosis and medication risk/benefits Reason for continued inpatient stay Substantial Risk for: med/psych decompensation Time Spent With Patient Time: Total time managing care of this patient today _20___ minutes.
[2024-06-28] MEDS: LOXAPINE 10 MG 3 EACH PO ×2 (09:45→21:16)
[2024-06-28] MEDS: hydrOXYzine HCL 25 MG TABLET PO (10:55)
[2024-06-28] MEDS: risperiDONE 1 MG TABLET PO ×2 (11:38→21:19)
[2024-06-28] MEDS: LORazepam 1 MG TABLET 2 MG PO ×3 (11:42→21:18)
--- NOTE | 2024-06-28 18:44 | PC.NURSE ---
Patient submitted 3-day, up on 07/01
[2024-06-28] MEDS: LOXAPINE 25 MG 25 EACH PO (21:17)
[2024-06-28] MEDS: traZODone HCL 50 MG TABLET 150 MG PO (21:18)
[2024-06-28] MEDS: diphenhydrAMINE HCL 25 MG CAPSULE 50 MG PO (21:19)
[2024-06-28 22:16] VITALS: BP 102/65; PULSE 86; RESP 16; TEMP 36.3; O2SAT 97
[2024-06-28] MEDS: Magnesium Hydrox/Alum Hydrox 30 ML ORAL.SUSP PO (23:13)
[2024-06-29] MEDS: Omeprazole 20 MG CAPSULE.DR PO (06:12)
--- NOTE | 2024-06-29 06:13 | PC.NURSE ---
requested and received prilosec at this time
[2024-06-29 07:33] VITALS: BP 117/76; PULSE 118; RESP 16; TEMP 36.3; O2SAT 95
[2024-06-29] MEDS: LOXAPINE 10 MG 3 EACH PO ×2 (09:06→21:03)
[2024-06-29] MEDS: risperiDONE 1 MG TABLET PO ×2 (09:06→21:00)
[2024-06-29] MEDS: Docusate Sodium 100 MG CAPSULE PO ×2 (09:07→21:00)
[2024-06-29] MEDS: Multivitamin TABLET 1 TAB PO (09:07)
[2024-06-29] MEDS: LORazepam 1 MG TABLET 2 MG PO ×3 (09:07→21:00)
--- NOTE | 2024-06-29 09:32 | P.PNPSI_ITS ---
Subjective Subjective Date of Service: 06/29/24 Reason For Visit: Crisis Subjective Notes: Conditional Voluntary Interim History: Keeping to self. pt continues thought blocking with delayed responses; per nursing, was more fluid in conversation last evening. Pt perseverative today regarding not getting ECT; pt informed she is not scheduled to receive ECT. medication compliant. sign 3 day notice and retracted 3 day today. Medication Compliance: Yes Side effects from medications: No Attending Groups: No Review of Systems Constitutional: Reports as per HPI Eyes: Reports as per HPI Reports as per HPI Cardiovascular: Reports as per HPI Respiratory: Reports as per HPI Gastrointestinal: Reports as per HPI Musculoskeletal: Reports as per HPI Skin/Breast: Reports as per HPI Reports as per HPI Psychiatric: Reports as per HPI Endocrine: Reports as per HPI Hematologic/Lymphatic: Reports as per HPI Allergic/Immunologic: Reports as per HPI Mental Status Exam Mental Status Exam Narrative: Pt is alert and oriented; behavior is cooperative and calm; dressed in hospital attire; mood is described as anxious , blunted affect; eye contact appropriate; Speech is normal volume, not pressured; appears thought blocking, delayed responses to questions;focused on ECT today despite no one speaking to her regarding this; denies SI/HI/VH/AH. Diagnostics Vital Signs (24Hr): Vital Signs - 24 hr 06/28/24 22:16 06/29/24 07:33 Temperature 97.3 F 97.3 F Pulse Rate 86 118 H Respiratory Rate 16 16 Blood Pressure 102/65 117/76 Pulse Oximetry 97 95 Oxygen Delivery Method Room Air Room Air BMI result Body Mass Index 30.5 Labs 06/22/24 17:54 06/23/24 19:02 Medications Medications Current Medications Acetaminophen (Acetaminophen 325 Mg Tablet) 650 mg PO Q6H PRN PRN Reason: Headache/Pain Mild Scale (1-3) Al Hydroxide/Mg Hydroxide (Magnesium Hydrox/Alum Hydrox 30 Ml Oral.Susp) 30 ml PO Q6H PRN PRN Reason: Heartburn/Nausea Last Admin: 06/28/24 23:13 Dose: 30 ml Diphenhydramine HCl (Diphenhydramine Hcl 25 Mg Capsule) 50 mg PO BEDTIME [facility] Last Admin: 06/28/24 21:19 Dose: 50 mg Docusate Sodium (Docusate Sodium 100 Mg Capsule) 100 mg PO BID [facility] Last Admin: 06/29/24 09:07 Dose: 100 mg Hydroxyzine HCl (Hydroxyzine Hcl 25 Mg Tablet) 25 mg PO Q6H PRN PRN Reason: Anxiety Last Admin: 06/28/24 10:55 Dose: 25 mg Lorazepam (Lorazepam 1 Mg Tablet) 2 mg PO TID [facility] Last Admin: 06/29/24 09:07 Dose: 2 mg Magnesium Hydroxide (Milk Of Magnesia 30 Ml Oral.Susp) 30 ml PO DAILY PRN PRN Reason: Constipation Multivitamins/Vitamin C (Multivitamin Tablet) 1 tab PO DAILY [facility] Last Admin: 06/29/24 09:07 Dose: 1 tab Naltrexone HCl (Naltrexone Hcl 50 Mg Tablet) 50 mg PO DAILY PRN PRN Reason: Withdrawal Symptoms Last Admin: 06/25/24 15:47 Dose: 50 mg Nicotine (Nicotine 21 Mg Patch.Td24) 21 mg TRANSDERMA DAILY [facility] Last Admin: 06/29/24 09:08 Dose: Not Given Nicotine Polacrilex (Nicotine Polacrilex Lozenge 2 Mg Lozenge) 2 mg BUCCAL Q1H PRN PRN Reason: Nicotine Cravings Last Admin: 06/25/24 06:52 Dose: 2 mg Pt Own (Loxapine 25 (Mg)) 25 mg PO BEDTIME [facility] Last Admin: 06/28/24 21:17 Dose: 25 mg Pt Own (Loxapine 10 (Mg)) 3 each PO BID [facility] Last Admin: 06/29/24 09:06 Dose: 3 each Nystatin (Nystatin Powder 15 Gm Bottle) 1 appl TOPICAL DAILY [facility]; Protocol Last Admin: 06/28/24 09:21 Dose: 1 appl Omeprazole (Omeprazole 20 Mg Capsule.Dr) 20 mg PO DAILY [facility] Last Admin: 06/29/24 06:12 Dose: 20 mg Risperidone (Risperidone 1 Mg Tablet) 1 mg PO BID [facility] Last Admin: 06/29/24 09:06 Dose: 1 mg Trazodone HCl (Trazodone Hcl 50 Mg Tablet) 150 mg PO BEDTIME [facility] Last Admin: 06/28/24 21:18 Dose: 150 mg Allergies Allergies Allergy/AdvReac Type Severity Reaction Status Date / Time Penicillins [PENICILLINS] Allergy Unknown RASH Verified 06/22/24 14:24 quetiapine [From SEROQUEL] Allergy Unknown DYSTONIA Verified 06/22/24 14:24 Assessment & Plan Assessment & Plan (1) Schizoaffective disorder: Status: Acute Code(s): F25.9 - Schizoaffective disorder, unspecified (2) PTSD (post-traumatic stress disorder): Status: Acute Code(s): F43.10 - Post-traumatic stress disorder, unspecified (3) Alcohol use disorder: Status: Acute Code(s): F10.90 - Alcohol use, unspecified, uncomplicated Plan Patient is a 58-year-old female with history of schizoaffective disorder, PTSD and alcohol use disorder, who presented to ER via ambulance from [facility] due to increased depression and not attending to her ADLs secondary to medication noncompliance. Plan: 06/25 very psychotic (AH), with paranoid delusions. She also presents with catatonia like symptoms including blank staring. She is on 3 antidepressants high doses, that will only worsen psychosis. will dc wellbutrin, effexor, will cut down trazodone. Will increase ativan 1mg po TID. will continue loxepine. 06/26 continue tx. 06/27: Keeping to self. retracted 3 day notice. showered. thought blocking with delayed responses; when asked if this is normal for patient, she stated, this is what drugs and alcohol did to my brain . Patient anxious regarding ECT, she reports discussing ECT once with Dr. Alegre but don't want it ; pt was informed that was not part of the treatment plan at this time. She expressed concern regarding the cameras on the unit and asked if they are able to see her while she is in the shower or room; pt was educated that cameras are only in common areas. she denies SI/HI/VH/AH. Continue current tx plan. 06/28: pt continues thought blocking with delayed responses; please see SW note regarding pt's baseline and collateral obtained. Pt perseverative today regarding seeing her daughter before she dies; pt stated, I don't want to . My daughter has a retraining order on me and I want to see her before I . Start: Risperidal 1mg PO BID Increase Ativan to 2mg PO TID 06/29: Keeping to self. pt continues thought blocking with delayed responses; per nursing, was more fluid in conversation last evening. Pt perseverative today regarding not getting ECT; pt informed she is not scheduled to receive ECT. medication compliant. sign 3 day notice and retracted 3 day today. Continue current tx plan. Patient educated on: diagnosis and medication risk/benefits Reason for continued inpatient stay Substantial Risk for: med/psych decompensation Time Spent With Patient Time: Total time managing care of this patient today _20___ minutes.
[2024-06-29] MEDS: Milk of Magnesia 30 ML ORAL.SUSP PO (13:16)
[2024-06-29] MEDS: Naltrexone HCl 50 MG TABLET PO (14:39)
[2024-06-29 20:00] VITALS: BP 113/87; PULSE 100; RESP 16; TEMP 36.4; O2SAT 94
[2024-06-29] MEDS: LOXAPINE 25 MG 25 EACH PO (21:00)
[2024-06-29] MEDS: diphenhydrAMINE HCL 25 MG CAPSULE 50 MG PO (21:00)
[2024-06-29] MEDS: traZODone HCL 50 MG TABLET 150 MG PO (21:00)
[2024-06-30 07:00] VITALS: BMI 30.6
[2024-06-30 07:30] VITALS: BP 135/79; PULSE 105; RESP 14; TEMP 36.3; O2SAT 96
[2024-06-30] MEDS: risperiDONE 1 MG TABLET PO ×2 (09:07→20:32)
[2024-06-30] MEDS: LORazepam 1 MG TABLET 2 MG PO ×3 (09:07→20:31)
[2024-06-30] MEDS: Omeprazole 20 MG CAPSULE.DR PO (09:08)
[2024-06-30] MEDS: Multivitamin TABLET 1 TAB PO (09:08)
[2024-06-30] MEDS: Docusate Sodium 100 MG CAPSULE PO ×2 (09:08→20:31)
[2024-06-30] MEDS: LOXAPINE 10 MG 3 EACH PO ×2 (09:24→20:30)
--- NOTE | 2024-06-30 09:37 | HO.PSYCHPN ---
Subjective Subjective Date of Service: 06/30/24 Reason For Visit: Crisis Subjective Notes: Conditional Voluntary Interim History: Patient is no longer presenting with thought blocking or delayed responses; she was able to have a fluid conversation. Patient stated, I feel good. I'm not anxious or depressed. 2020 is the last time something like this happened where I was talking really slow . She denies SI/HI/VH/AH. Plan to start tapering on Ativan if continues with current presentation tomorrow; pt aware. Medication Compliance: Yes Side effects from medications: No Review of Systems Constitutional: Reports as per HPI Eyes: Reports as per HPI Reports as per HPI Cardiovascular: Reports as per HPI Respiratory: Reports as per HPI Gastrointestinal: Reports as per HPI Musculoskeletal: Reports as per HPI Skin/Breast: Reports as per HPI Reports as per HPI Psychiatric: Reports as per HPI Endocrine: Reports as per HPI Hematologic/Lymphatic: Reports as per HPI Allergic/Immunologic: Reports as per HPI Mental Status Exam Mental Status Exam Narrative: Pt is alert and oriented; behavior is cooperative, friendly and calm; dressed in casual attire; mood is described as good ; eye contact appropriate; Speech is normal rate, volume and not pressured; thought process is organized and goal directed; Thought content is on tx; otherwise pertinent to relevant topics and without any delusional content, paranoid ideations or grandiosity; denies SI/HI/VH/AH. Diagnostics Vital Signs (24Hr): Vital Signs - 24 hr 06/29/24 20:00 06/30/24 07:30 Temperature 97.5 F 97.4 F Pulse Rate 100 105 H Respiratory Rate 16 14 Blood Pressure 113/87 135/79 Pulse Oximetry 94 96 Oxygen Delivery Method Room Air Room Air BMI result Body Mass Index 30.5 Labs 06/22/24 17:54 06/23/24 19:02 Medications Medications Current Medications Acetaminophen (Acetaminophen 325 Mg Tablet) 650 mg PO Q6H PRN PRN Reason: Headache/Pain Mild Scale (1-3) Al Hydroxide/Mg Hydroxide (Magnesium Hydrox/Alum Hydrox 30 Ml Oral.Susp) 30 ml PO Q6H PRN PRN Reason: Heartburn/Nausea Last Admin: 06/28/24 23:13 Dose: 30 ml Diphenhydramine HCl (Diphenhydramine Hcl 25 Mg Capsule) 50 mg PO BEDTIME [facility] Last Admin: 06/29/24 21:00 Dose: 50 mg Docusate Sodium (Docusate Sodium 100 Mg Capsule) 100 mg PO BID [facility] Last Admin: 06/30/24 09:08 Dose: 100 mg Hydroxyzine HCl (Hydroxyzine Hcl 25 Mg Tablet) 25 mg PO Q6H PRN PRN Reason: Anxiety Last Admin: 06/28/24 10:55 Dose: 25 mg Lorazepam (Lorazepam 1 Mg Tablet) 2 mg PO TID [facility] Last Admin: 06/30/24 09:07 Dose: 2 mg Magnesium Hydroxide (Milk Of Magnesia 30 Ml Oral.Susp) 30 ml PO DAILY PRN PRN Reason: Constipation Last Admin: 06/29/24 13:16 Dose: 30 ml Multivitamins/Vitamin C (Multivitamin Tablet) 1 tab PO DAILY [facility] Last Admin: 06/30/24 09:08 Dose: 1 tab Naltrexone HCl (Naltrexone Hcl 50 Mg Tablet) 50 mg PO DAILY PRN PRN Reason: Withdrawal Symptoms Last Admin: 06/29/24 14:39 Dose: 50 mg Nicotine (Nicotine 21 Mg Patch.Td24) 21 mg TRANSDERMA DAILY [facility] Last Admin: 06/29/24 09:08 Dose: Not Given Nicotine Polacrilex (Nicotine Polacrilex Lozenge 2 Mg Lozenge) 2 mg BUCCAL Q1H PRN PRN Reason: Nicotine Cravings Last Admin: 06/25/24 06:52 Dose: 2 mg Pt Own (Loxapine 25 (Mg)) 25 mg PO BEDTIME [facility] Last Admin: 06/29/24 21:00 Dose: 25 mg Pt Own (Loxapine 10 (Mg)) 3 each PO BID [facility] Last Admin: 06/30/24 09:24 Dose: 3 each Nystatin (Nystatin Powder 15 Gm Bottle) 1 appl TOPICAL DAILY [facility]; Protocol Last Admin: 06/30/24 09:08 Dose: Not Given Omeprazole (Omeprazole 20 Mg Capsule.Dr) 20 mg PO DAILY [facility] Last Admin: 06/30/24 09:08 Dose: 20 mg Risperidone (Risperidone 1 Mg Tablet) 1 mg PO BID [facility] Last Admin: 06/30/24 09:07 Dose: 1 mg Trazodone HCl (Trazodone Hcl 50 Mg Tablet) 150 mg PO BEDTIME [facility] Last Admin: 06/29/24 21:00 Dose: 150 mg Allergies Allergies Allergy/AdvReac Type Severity Reaction Status Date / Time Penicillins [PENICILLINS] Allergy Unknown RASH Verified 06/22/24 14:24 quetiapine [From SEROQUEL] Allergy Unknown DYSTONIA Verified 06/22/24 14:24 Assessment & Plan Assessment & Plan (1) Schizoaffective disorder: Status: Acute Code(s): F25.9 - Schizoaffective disorder, unspecified (2) PTSD (post-traumatic stress disorder): Status: Acute Code(s): F43.10 - Post-traumatic stress disorder, unspecified (3) Alcohol use disorder: Status: Acute Code(s): F10.90 - Alcohol use, unspecified, uncomplicated Plan Patient is a 58-year-old female with history of schizoaffective disorder, PTSD and alcohol use disorder, who presented to ER via ambulance from [facility] due to increased depression and not attending to her ADLs secondary to medication noncompliance. Plan: 06/25 very psychotic (AH), with paranoid delusions. She also presents with catatonia like symptoms including blank staring. She is on 3 antidepressants high doses, that will only worsen psychosis. will dc wellbutrin, effexor, will cut down trazodone. Will increase ativan 1mg po TID. will continue loxepine. 06/26 continue tx. 06/27: Keeping to self. retracted 3 day notice. showered. thought blocking with delayed responses; when asked if this is normal for patient, she stated, this is what drugs and alcohol did to my brain . Patient anxious regarding ECT, she reports discussing ECT once with Dr. Alegre but don't want it ; pt was informed that was not part of the treatment plan at this time. She expressed concern regarding the cameras on the unit and asked if they are able to see her while she is in the shower or room; pt was educated that cameras are only in common areas. she denies SI/HI/VH/AH. Continue current tx plan. 06/28: pt continues thought blocking with delayed responses; please see SW note regarding pt's baseline and collateral obtained. Pt perseverative today regarding seeing her daughter before she dies; pt stated, I don't want to . My daughter has a retraining order on me and I want to see her before I . Start: Risperidal 1mg PO BID Increase Ativan to 2mg PO TID 06/29: Keeping to self. pt continues thought blocking with delayed responses; per nursing, was more fluid in conversation last evening. Pt perseverative today regarding not getting ECT; pt informed she is not scheduled to receive ECT. medication compliant. sign 3 day notice and retracted 3 day today. Continue current tx plan. 06/30: Patient is no longer presenting with thought blocking or delayed responses; she was able to have a fluid conversation. Patient stated, I feel good. I'm not anxious or depressed. 2020 is the last time something like this happened where I was talking really slow . She denies SI/HI/VH/AH. Plan to start tapering on Ativan if continues with current presentation tomorrow; pt aware. Patient educated on: diagnosis and medication risk/benefits Reason for continued inpatient stay Substantial Risk for: med/psych decompensation Time Spent With Patient Time: Total time managing care of this patient today _20___ minutes.
[2024-06-30 20:00] VITALS: BP 114/73; PULSE 100; RESP 16; TEMP 36.4; O2SAT 97
[2024-06-30] MEDS: LOXAPINE 25 MG 25 EACH PO (20:30)
[2024-06-30] MEDS: diphenhydrAMINE HCL 25 MG CAPSULE 50 MG PO (20:31)
[2024-06-30] MEDS: traZODone HCL 50 MG TABLET 150 MG PO (20:31)
[2024-07-01 07:34] VITALS: BP 112/79; PULSE 103; RESP 16; TEMP 36.8; O2SAT 96
[2024-07-01] MEDS: LOXAPINE 10 MG 3 EACH PO ×2 (08:52→20:17)
[2024-07-01] MEDS: Omeprazole 20 MG CAPSULE.DR PO (08:53)
[2024-07-01] MEDS: risperiDONE 1 MG TABLET PO ×2 (08:53→20:10)
[2024-07-01] MEDS: Docusate Sodium 100 MG CAPSULE PO ×2 (08:53→20:11)
[2024-07-01] MEDS: Multivitamin TABLET 1 TAB PO (08:53)
[2024-07-01] MEDS: LORazepam 1 MG TABLET 2 MG PO ×2 (08:54→20:11)
--- NOTE | 2024-07-01 10:51 | P.PNPSI_ITS ---
Subjective Subjective Date of Service: 07/01/24 Reason For Visit: Crisis Subjective Notes: Conditional Voluntary Interim History: Active on unit, social with peers. attending groups. Patient continues to report feeling good; pt stated, I feel like I'm back to normal . Discussed taper of Ativan. Ativan decreased to 1mg PO BID@0900,1500 and 2mg PO bedtime; denies SI/HI/VH/AH. per nursing, slept 8 hours. Plan to discharge back to [facility] on Thursday. Medication Compliance: Yes Side effects from medications: No Attending Groups: Yes Review of Systems Constitutional: Reports as per HPI Eyes: Reports as per HPI Reports as per HPI Cardiovascular: Reports as per HPI Respiratory: Reports as per HPI Gastrointestinal: Reports as per HPI Musculoskeletal: Reports as per HPI Skin/Breast: Reports as per HPI Reports as per HPI Psychiatric: Reports as per HPI Endocrine: Reports as per HPI Hematologic/Lymphatic: Reports as per HPI Allergic/Immunologic: Reports as per HPI Mental Status Exam Mental Status Exam Narrative: Pt is alert and oriented; behavior is cooperative, friendly and calm; dressed in casual attire; mood is described as good ; eye contact appropriate; Speech is normal rate, volume and not pressured; thought process is organized and goal directed; Thought content is on tx; otherwise pertinent to relevant topics and without any delusional content, paranoid ideations or grandiosity; denies SI/HI/VH/AH. Diagnostics Vital Signs (24Hr): Vital Signs - 24 hr 06/30/24 20:00 07/01/24 07:34 Temperature 97.6 F 98.3 F Pulse Rate 100 103 H Respiratory Rate 16 16 Blood Pressure 114/73 112/79 Pulse Oximetry 97 96 Oxygen Delivery Method Room Air Room Air BMI result Body Mass Index 30.6 Labs 06/22/24 17:54 06/23/24 19:02 Medications Medications Current Medications Acetaminophen (Acetaminophen 325 Mg Tablet) 650 mg PO Q6H PRN PRN Reason: Headache/Pain Mild Scale (1-3) Al Hydroxide/Mg Hydroxide (Magnesium Hydrox/Alum Hydrox 30 Ml Oral.Susp) 30 ml PO Q6H PRN PRN Reason: Heartburn/Nausea Last Admin: 06/28/24 23:13 Dose: 30 ml Diphenhydramine HCl (Diphenhydramine Hcl 25 Mg Capsule) 50 mg PO BEDTIME [facility] Last Admin: 06/30/24 20:31 Dose: 50 mg Docusate Sodium (Docusate Sodium 100 Mg Capsule) 100 mg PO BID [facility] Last Admin: 07/01/24 08:53 Dose: 100 mg Hydroxyzine HCl (Hydroxyzine Hcl 25 Mg Tablet) 25 mg PO Q6H PRN PRN Reason: Anxiety Last Admin: 06/28/24 10:55 Dose: 25 mg Lorazepam (Lorazepam 1 Mg Tablet) 2 mg PO TID [facility] Last Admin: 07/01/24 08:54 Dose: 2 mg Magnesium Hydroxide (Milk Of Magnesia 30 Ml Oral.Susp) 30 ml PO DAILY PRN PRN Reason: Constipation Last Admin: 06/29/24 13:16 Dose: 30 ml Multivitamins/Vitamin C (Multivitamin Tablet) 1 tab PO DAILY [facility] Last Admin: 07/01/24 08:53 Dose: 1 tab Naltrexone HCl (Naltrexone Hcl 50 Mg Tablet) 50 mg PO DAILY PRN PRN Reason: Withdrawal Symptoms Last Admin: 06/29/24 14:39 Dose: 50 mg Nicotine (Nicotine 21 Mg Patch.Td24) 21 mg TRANSDERMA DAILY [facility] Last Admin: 07/01/24 09:08 Dose: Not Given Nicotine Polacrilex (Nicotine Polacrilex Lozenge 2 Mg Lozenge) 2 mg BUCCAL Q1H PRN PRN Reason: Nicotine Cravings Last Admin: 06/25/24 06:52 Dose: 2 mg Pt Own (Loxapine 25 (Mg)) 25 mg PO BEDTIME [facility] Last Admin: 06/30/24 20:30 Dose: 25 mg Pt Own (Loxapine 10 (Mg)) 3 each PO BID [facility] Last Admin: 07/01/24 08:52 Dose: 3 each Nystatin (Nystatin Powder 15 Gm Bottle) 1 appl TOPICAL DAILY [facility]; Protocol Last Admin: 07/01/24 09:09 Dose: Not Given Omeprazole (Omeprazole 20 Mg Capsule.Dr) 20 mg PO DAILY [facility] Last Admin: 07/01/24 08:53 Dose: 20 mg Risperidone (Risperidone 1 Mg Tablet) 1 mg PO BID [facility] Last Admin: 07/01/24 08:53 Dose: 1 mg Trazodone HCl (Trazodone Hcl 50 Mg Tablet) 150 mg PO BEDTIME [facility] Last Admin: 06/30/24 20:31 Dose: 150 mg Allergies Allergies Allergy/AdvReac Type Severity Reaction Status Date / Time Penicillins [PENICILLINS] Allergy Unknown RASH Verified 06/22/24 14:24 quetiapine [From SEROQUEL] Allergy Unknown DYSTONIA Verified 06/22/24 14:24 Assessment & Plan Assessment & Plan (1) Schizoaffective disorder: Status: Acute Code(s): F25.9 - Schizoaffective disorder, unspecified (2) PTSD (post-traumatic stress disorder): Status: Acute Code(s): F43.10 - Post-traumatic stress disorder, unspecified (3) Alcohol use disorder: Status: Acute Code(s): F10.90 - Alcohol use, unspecified, uncomplicated Plan Patient is a 58-year-old female with history of schizoaffective disorder, PTSD and alcohol use disorder, who presented to ER via ambulance from [facility] due to increased depression and not attending to her ADLs secondary to medication noncompliance. Plan: 06/25 very psychotic (AH), with paranoid delusions. She also presents with catatonia like symptoms including blank staring. She is on 3 antidepressants high doses, that will only worsen psychosis. will dc wellbutrin, effexor, will cut down trazodone. Will increase ativan 1mg po TID. will continue loxepine. 06/26 continue tx. 06/27: Keeping to self. retracted 3 day notice. showered. thought blocking with delayed responses; when asked if this is normal for patient, she stated, this is what drugs and alcohol did to my brain . Patient anxious regarding ECT, she reports discussing ECT once with Dr. Alegre but don't want it ; pt was informed that was not part of the treatment plan at this time. She expressed concern regarding the cameras on the unit and asked if they are able to see her while she is in the shower or room; pt was educated that cameras are only in common areas. she denies SI/HI/VH/AH. Continue current tx plan. 06/28: pt continues thought blocking with delayed responses; please see SW note regarding pt's baseline and collateral obtained. Pt perseverative today regarding seeing her daughter before she dies; pt stated, I don't want to . My daughter has a retraining order on me and I want to see her before I . Start: Risperidal 1mg PO BID Increase Ativan to 2mg PO TID 06/29: Keeping to self. pt continues thought blocking with delayed responses; per nursing, was more fluid in conversation last evening. Pt perseverative today regarding not getting ECT; pt informed she is not scheduled to receive ECT. medication compliant. sign 3 day notice and retracted 3 day today. Continue current tx plan. 06/30: Patient is no longer presenting with thought blocking or delayed responses; she was able to have a fluid conversation. Patient stated, I feel good. I'm not anxious or depressed. 2020 is the last time something like this happened where I was talking really slow . She denies SI/HI/VH/AH. Plan to start tapering on Ativan if continues with current presentation tomorrow; pt aware. 07/01: Active on unit, social with peers. attending groups. Patient continues to report feeling good; pt stated, I feel like I'm back to normal . Discussed taper of Ativan. Ativan decreased to 1mg PO BID@0900,1500 and 2mg PO bedtime; denies SI/HI/VH/AH. per nursing, slept 8 hours. Plan to discharge back to [facility] on Thursday. Patient educated on: diagnosis, medication risk/benefits and therapeutic strategies Reason for continued inpatient stay Substantial Risk for: med/psych decompensation Time Spent With Patient Time: Total time managing care of this patient today _20___ minutes.
[2024-07-01] MEDS: LORazepam 1 MG TABLET PO (14:16)
[2024-07-01 20:00] VITALS: BP 135/72; PULSE 88; RESP 16; TEMP 36.2; O2SAT 96
[2024-07-01] MEDS: diphenhydrAMINE HCL 25 MG CAPSULE 50 MG PO (20:10)
[2024-07-01] MEDS: traZODone HCL 50 MG TABLET 150 MG PO (20:11)
[2024-07-01] MEDS: LOXAPINE 25 MG 25 EACH PO (20:17)
[2024-07-01] MEDS: Magnesium Hydrox/Alum Hydrox 30 ML ORAL.SUSP PO (20:19)
[2024-07-02 07:46] VITALS: BP 127/90; PULSE 118; RESP 14; TEMP 36.2; O2SAT 96
[2024-07-02] MEDS: LORazepam 1 MG TABLET PO ×2 (08:36→13:55)
[2024-07-02] MEDS: Omeprazole 20 MG CAPSULE.DR PO (08:36)
[2024-07-02] MEDS: Multivitamin TABLET 1 TAB PO (08:37)
[2024-07-02] MEDS: risperiDONE 1 MG TABLET PO ×2 (08:37→20:15)
[2024-07-02] MEDS: Docusate Sodium 100 MG CAPSULE PO ×2 (08:37→20:15)
[2024-07-02] MEDS: LOXAPINE 10 MG 3 EACH PO ×2 (08:38→20:18)
--- NOTE | 2024-07-02 14:26 | P.PNPSI_ITS ---
Subjective Subjective Date of Service: 07/02/24 Reason For Visit: Crisis Interim History: The nursing staff reported the patient had been having severe thought process disorder, with very long delay in response. She is soft-spoken and she was more worried about her belongings. She slept well all last night. On interview the patient was unable to answer nearly catatonic. Mental Status Exam Mental Status Exam Patient Appearance: Unkempt Patient Orientation: Person Level of Consciousness: Awake Patient Behavior: Guarded Mood Description: Withdrawn Affect Description: Blunted Ability to Follow Directions: Fair Speech Pattern: Impoverished Hallucinations: Auditory Delusions: Paranoid Ideation Thought Process: Illogical and Slowed Thinking Thought Content: positive for Poverty of Content Judgement: Poor Diagnostics Vital Signs (24Hr): Vital Signs - 24 hr 07/01/24 20:00 07/02/24 07:46 Temperature 97.1 F 97.1 F Pulse Rate 88 118 H Respiratory Rate 16 14 Blood Pressure 135/72 127/90 H Pulse Oximetry 96 96 Oxygen Delivery Method Room Air Room Air BMI result Body Mass Index 30.6 Labs 06/22/24 17:54 06/23/24 19:02 Medications Medications Current Medications Acetaminophen (Acetaminophen 325 Mg Tablet) 650 mg PO Q6H PRN PRN Reason: Headache/Pain Mild Scale (1-3) Al Hydroxide/Mg Hydroxide (Magnesium Hydrox/Alum Hydrox 30 Ml Oral.Susp) 30 ml PO Q6H PRN PRN Reason: Heartburn/Nausea Last Admin: 07/01/24 20:19 Dose: 30 ml Diphenhydramine HCl (Diphenhydramine Hcl 25 Mg Capsule) 50 mg PO BEDTIME [facility] Last Admin: 07/01/24 20:10 Dose: 50 mg Docusate Sodium (Docusate Sodium 100 Mg Capsule) 100 mg PO BID [facility] Last Admin: 07/02/24 08:37 Dose: 100 mg Hydroxyzine HCl (Hydroxyzine Hcl 25 Mg Tablet) 25 mg PO Q6H PRN PRN Reason: Anxiety Last Admin: 06/28/24 10:55 Dose: 25 mg Lorazepam (Lorazepam 1 Mg Tablet) 1 mg PO BID@0900,1500 [facility] Last Admin: 07/02/24 13:55 Dose: 1 mg Lorazepam (Lorazepam 1 Mg Tablet) 2 mg PO BEDTIME [facility] Last Admin: 07/01/24 20:11 Dose: 2 mg Magnesium Hydroxide (Milk Of Magnesia 30 Ml Oral.Susp) 30 ml PO DAILY PRN PRN Reason: Constipation Last Admin: 06/29/24 13:16 Dose: 30 ml Multivitamins/Vitamin C (Multivitamin Tablet) 1 tab PO DAILY [facility] Last Admin: 07/02/24 08:37 Dose: 1 tab Naltrexone HCl (Naltrexone Hcl 50 Mg Tablet) 50 mg PO DAILY PRN PRN Reason: Withdrawal Symptoms Last Admin: 06/29/24 14:39 Dose: 50 mg Nicotine (Nicotine 21 Mg Patch.Td24) 21 mg TRANSDERMA DAILY [facility] Last Admin: 07/02/24 08:40 Dose: Not Given Nicotine Polacrilex (Nicotine Polacrilex Lozenge 2 Mg Lozenge) 2 mg BUCCAL Q1H PRN PRN Reason: Nicotine Cravings Last Admin: 06/25/24 06:52 Dose: 2 mg Pt Own (Loxapine 25 (Mg)) 25 mg PO BEDTIME [facility] Last Admin: 07/01/24 20:17 Dose: 25 mg Pt Own (Loxapine 10 (Mg)) 3 each PO BID [facility] Last Admin: 07/02/24 08:38 Dose: 3 each Nystatin (Nystatin Powder 15 Gm Bottle) 1 appl TOPICAL DAILY [facility]; Protocol Last Admin: 07/02/24 08:40 Dose: Not Given Omeprazole (Omeprazole 20 Mg Capsule.Dr) 20 mg PO DAILY [facility] Last Admin: 07/02/24 08:36 Dose: 20 mg Risperidone (Risperidone 1 Mg Tablet) 1 mg PO BID [facility] Last Admin: 07/02/24 08:37 Dose: 1 mg Trazodone HCl (Trazodone Hcl 50 Mg Tablet) 150 mg PO BEDTIME [facility] Last Admin: 07/01/24 20:11 Dose: 150 mg Allergies Allergies Allergy/AdvReac Type Severity Reaction Status Date / Time Penicillins [PENICILLINS] Allergy Unknown RASH Verified 06/22/24 14:24 quetiapine [From SEROQUEL] Allergy Unknown DYSTONIA Verified 06/22/24 14:24 Assessment & Plan Assessment & Plan (1) Schizoaffective disorder: Status: Acute Code(s): F25.9 - Schizoaffective disorder, unspecified (2) PTSD (post-traumatic stress disorder): Status: Acute Code(s): F43.10 - Post-traumatic stress disorder, unspecified (3) Alcohol use disorder: Status: Acute Code(s): F10.90 - Alcohol use, unspecified, uncomplicated Plan Patient is a 58-year-old female with history of schizoaffective disorder, PTSD and alcohol use disorder, who presented to ER via ambulance from [facility] due to increased depression and not attending to her ADLs secondary to medication noncompliance. Plan: 06/25 very psychotic (AH), with paranoid delusions. She also presents with catatonia like symptoms including blank staring. She is on 3 antidepressants high doses, that will only worsen psychosis. will dc wellbutrin, effexor, will cut down trazodone. Will increase ativan 1mg po TID. will continue loxepine. 06/26 continue tx. 06/27: Keeping to self. retracted 3 day notice. showered. thought blocking with delayed responses; when asked if this is normal for patient, she stated, this is what drugs and alcohol did to my brain . Patient anxious regarding ECT, she reports discussing ECT once with Dr. Alegre but don't want it ; pt was informed that was not part of the treatment plan at this time. She expressed concern regarding the cameras on the unit and asked if they are able to see her while she is in the shower or room; pt was educated that cameras are only in common areas. she denies SI/HI/VH/AH. Continue current tx plan. 06/28: pt continues thought blocking with delayed responses; please see SW note regarding pt's baseline and collateral obtained. Pt perseverative today regarding seeing her daughter before she dies; pt stated, I don't want to . My daughter has a retraining order on me and I want to see her before I . Start: Risperidal 1mg PO BID Increase Ativan to 2mg PO TID 06/29: Keeping to self. pt continues thought blocking with delayed responses; per nursing, was more fluid in conversation last evening. Pt perseverative today regarding not getting ECT; pt informed she is not scheduled to receive ECT. medication compliant. sign 3 day notice and retracted 3 day today. Continue current tx plan. 06/30: Patient is no longer presenting with thought blocking or delayed responses; she was able to have a fluid conversation. Patient stated, I feel good. I'm not anxious or depressed. 2020 is the last time something like this happened where I was talking really slow . She denies SI/HI/VH/AH. Plan to start tapering on Ativan if continues with current presentation tomorrow; pt aware. 07/01: Active on unit, social with peers. attending groups. Patient continues to report feeling good; pt stated, I feel like I'm back to normal . Discussed taper of Ativan. Ativan decreased to 1mg PO BID@0900,1500 and 2mg PO bedtime; denies SI/HI/VH/AH. per nursing, slept 8 hours. Plan to discharge back to [facility] on Thursday. 07/02 keep same treatment Reason for continued inpatient stay Substantial Risk for: inability to function, rapid decompensation and med/psych decompensation Time Spent With Patient Time: Total time managing care of this patient today __20__ minutes.
[2024-07-02] MEDS: Magnesium Hydrox/Alum Hydrox 30 ML ORAL.SUSP PO (19:34)
[2024-07-02] MEDS: diphenhydrAMINE HCL 25 MG CAPSULE 50 MG PO (20:15)
[2024-07-02] MEDS: hydrOXYzine HCL 25 MG TABLET PO (20:15)
[2024-07-02] MEDS: LORazepam 1 MG TABLET 2 MG PO (20:15)
[2024-07-02] MEDS: traZODone HCL 50 MG TABLET 150 MG PO (20:15)
[2024-07-02] MEDS: LOXAPINE 25 MG 25 EACH PO (20:18)
[2024-07-02 20:21] VITALS: BP 107/72; PULSE 92; RESP 16; TEMP 36.4; O2SAT 94
[2024-07-03 07:37] VITALS: BP 133/82; PULSE 108; RESP 16; TEMP 36.2; O2SAT 96
[2024-07-03] MEDS: Omeprazole 20 MG CAPSULE.DR PO (08:42)
[2024-07-03] MEDS: LORazepam 1 MG TABLET PO ×2 (08:42→14:33)
[2024-07-03] MEDS: LOXAPINE 10 MG 3 EACH PO ×2 (08:43→20:22)
[2024-07-03] MEDS: risperiDONE 1 MG TABLET PO ×2 (08:43→20:24)
[2024-07-03] MEDS: Multivitamin TABLET 1 TAB PO (08:43)
[2024-07-03] MEDS: Docusate Sodium 100 MG CAPSULE PO ×2 (08:43→20:24)
[2024-07-03] MEDS: Magnesium Hydrox/Alum Hydrox 30 ML ORAL.SUSP PO ×2 (12:33→19:52)
--- NOTE | 2024-07-03 13:55 | HO.PSYCHPN ---
Subjective Subjective Date of Service: 07/03/24 Reason For Visit: Crisis Interim History: The nursing staff reported the patient had been seclusive nearly catatonic. She needs help her on the shower and she has attended to groups she shows some thought blocking and slept only 1 hour at night. On interview the patient denies new symptoms Mental Status Exam Mental Status Exam Patient Appearance: Appropriate Patient Orientation: Person and Situation Level of Consciousness: Awake and Appropriate Patient Behavior: Guarded and Passive Mood Description: Withdrawn Affect Description: Constricted Patient Cognition Impaired: Yes Ability to Follow Directions: Good Speech Pattern: Clear Hallucinations: None Delusions: Paranoid Ideation and Ideas of Reference Thought Process: Distracted and Slowed Thinking Thought Content: positive for [place] and positive for Poverty of Content Judgement: Fair Diagnostics Vital Signs (24Hr): Vital Signs - 24 hr 07/02/24 20:21 07/03/24 07:37 Temperature 97.5 F 97.1 F Pulse Rate 92 108 H Respiratory Rate 16 16 Blood Pressure 107/72 133/82 Pulse Oximetry 94 96 Oxygen Delivery Method Room Air Room Air BMI result Body Mass Index 30.6 Labs 06/22/24 17:54 06/23/24 19:02 Medications Medications Current Medications Acetaminophen (Acetaminophen 325 Mg Tablet) 650 mg PO Q6H PRN PRN Reason: Headache/Pain Mild Scale (1-3) Al Hydroxide/Mg Hydroxide (Magnesium Hydrox/Alum Hydrox 30 Ml Oral.Susp) 30 ml PO Q6H PRN PRN Reason: Heartburn/Nausea Last Admin: 07/03/24 12:33 Dose: 30 ml Diphenhydramine HCl (Diphenhydramine Hcl 25 Mg Capsule) 50 mg PO BEDTIME [facility] Last Admin: 07/02/24 20:15 Dose: 50 mg Docusate Sodium (Docusate Sodium 100 Mg Capsule) 100 mg PO BID [facility] Last Admin: 07/03/24 08:43 Dose: 100 mg Hydroxyzine HCl (Hydroxyzine Hcl 25 Mg Tablet) 25 mg PO Q6H PRN PRN Reason: Anxiety Last Admin: 07/02/24 20:15 Dose: 25 mg Lorazepam (Lorazepam 1 Mg Tablet) 1 mg PO BID@0900,1500 [facility] Last Admin: 07/03/24 08:42 Dose: 1 mg Lorazepam (Lorazepam 1 Mg Tablet) 2 mg PO BEDTIME [facility] Last Admin: 07/02/24 20:15 Dose: 2 mg Magnesium Hydroxide (Milk Of Magnesia 30 Ml Oral.Susp) 30 ml PO DAILY PRN PRN Reason: Constipation Last Admin: 06/29/24 13:16 Dose: 30 ml Multivitamins/Vitamin C (Multivitamin Tablet) 1 tab PO DAILY [facility] Last Admin: 07/03/24 08:43 Dose: 1 tab Naltrexone HCl (Naltrexone Hcl 50 Mg Tablet) 50 mg PO DAILY PRN PRN Reason: Withdrawal Symptoms Last Admin: 06/29/24 14:39 Dose: 50 mg Nicotine (Nicotine 21 Mg Patch.Td24) 21 mg TRANSDERMA DAILY [facility] Last Admin: 07/03/24 08:45 Dose: Not Given Nicotine Polacrilex (Nicotine Polacrilex Lozenge 2 Mg Lozenge) 2 mg BUCCAL Q1H PRN PRN Reason: Nicotine Cravings Last Admin: 06/25/24 06:52 Dose: 2 mg Pt Own (Loxapine 25 (Mg)) 25 mg PO BEDTIME [facility] Last Admin: 07/02/24 20:18 Dose: 25 mg Pt Own (Loxapine 10 (Mg)) 3 each PO BID [facility] Last Admin: 07/03/24 08:43 Dose: 3 each Nystatin (Nystatin Powder 15 Gm Bottle) 1 appl TOPICAL DAILY [facility]; Protocol Last Admin: 07/03/24 08:45 Dose: Not Given Omeprazole (Omeprazole 20 Mg Capsule.Dr) 20 mg PO DAILY [facility] Last Admin: 07/03/24 08:42 Dose: 20 mg Risperidone (Risperidone 1 Mg Tablet) 1 mg PO BID [facility] Last Admin: 07/03/24 08:43 Dose: 1 mg Trazodone HCl (Trazodone Hcl 50 Mg Tablet) 150 mg PO BEDTIME [facility] Last Admin: 07/02/24 20:15 Dose: 150 mg Allergies Allergies Allergy/AdvReac Type Severity Reaction Status Date / Time Penicillins [PENICILLINS] Allergy Unknown RASH Verified 06/22/24 14:24 quetiapine [From SEROQUEL] Allergy Unknown DYSTONIA Verified 06/22/24 14:24 Assessment & Plan Assessment & Plan (1) Schizoaffective disorder: Status: Acute Code(s): F25.9 - Schizoaffective disorder, unspecified (2) PTSD (post-traumatic stress disorder): Status: Acute Code(s): F43.10 - Post-traumatic stress disorder, unspecified (3) Alcohol use disorder: Status: Acute Code(s): F10.90 - Alcohol use, unspecified, uncomplicated Plan Patient is a 58-year-old female with history of schizoaffective disorder, PTSD and alcohol use disorder, who presented to ER via ambulance from [facility] due to increased depression and not attending to her ADLs secondary to medication noncompliance. Plan: 06/25 very psychotic (AH), with paranoid delusions. She also presents with catatonia like symptoms including blank staring. She is on 3 antidepressants high doses, that will only worsen psychosis. will dc wellbutrin, effexor, will cut down trazodone. Will increase ativan 1mg po TID. will continue loxepine. 06/26 continue tx. 06/27: Keeping to self. retracted 3 day notice. showered. thought blocking with delayed responses; when asked if this is normal for patient, she stated, this is what drugs and alcohol did to my brain . Patient anxious regarding ECT, she reports discussing ECT once with Dr. Alegre but don't want it ; pt was informed that was not part of the treatment plan at this time. She expressed concern regarding the cameras on the unit and asked if they are able to see her while she is in the shower or room; pt was educated that cameras are only in common areas. she denies SI/HI/VH/AH. Continue current tx plan. 06/28: pt continues thought blocking with delayed responses; please see SW note regarding pt's baseline and collateral obtained. Pt perseverative today regarding seeing her daughter before she dies; pt stated, I don't want to . My daughter has a retraining order on me and I want to see her before I . Start: Risperidal 1mg PO BID Increase Ativan to 2mg PO TID 06/29: Keeping to self. pt continues thought blocking with delayed responses; per nursing, was more fluid in conversation last evening. Pt perseverative today regarding not getting ECT; pt informed she is not scheduled to receive ECT. medication compliant. sign 3 day notice and retracted 3 day today. Continue current tx plan. 06/30: Patient is no longer presenting with thought blocking or delayed responses; she was able to have a fluid conversation. Patient stated, I feel good. I'm not anxious or depressed. 2020 is the last time something like this happened where I was talking really slow . She denies SI/HI/VH/AH. Plan to start tapering on Ativan if continues with current presentation tomorrow; pt aware. 07/01: Active on unit, social with peers. attending groups. Patient continues to report feeling good; pt stated, I feel like I'm back to normal . Discussed taper of Ativan. Ativan decreased to 1mg PO BID@0900,1500 and 2mg PO bedtime; denies SI/HI/VH/AH. per nursing, slept 8 hours. Plan to discharge back to [facility] on Thursday. 07/02 keep same treatment. 07/03 keep same treatment Reason for continued inpatient stay Substantial Risk for: inability to function, rapid decompensation and med/psych decompensation Time Spent With Patient Time: Total time managing care of this patient today __20__ minutes.
[2024-07-03 20:00] VITALS: BP 127/79; PULSE 95; RESP 16; TEMP 36.3; O2SAT 97
[2024-07-03] MEDS: LOXAPINE 25 MG 25 EACH PO (20:22)
[2024-07-03] MEDS: LORazepam 1 MG TABLET 2 MG PO (20:23)
[2024-07-03] MEDS: diphenhydrAMINE HCL 25 MG CAPSULE 50 MG PO (20:24)
[2024-07-03] MEDS: hydrOXYzine HCL 25 MG TABLET PO (20:24)
[2024-07-03] MEDS: traZODone HCL 50 MG TABLET 150 MG PO (20:25)
[2024-07-04] MEDS: hydrOXYzine HCL 25 MG TABLET PO (02:16)
[2024-07-04] MEDS: hydrOXYzine HCL 50 MG TABLET PO (05:35)
[2024-07-04 07:30] VITALS: BP 119/83; PULSE 109; RESP 16; TEMP 36.3; O2SAT 94
[2024-07-04] MEDS: Multivitamin TABLET 1 TAB PO (08:44)
[2024-07-04] MEDS: Omeprazole 20 MG CAPSULE.DR PO (08:44)
[2024-07-04] MEDS: Docusate Sodium 100 MG CAPSULE PO ×2 (08:44→22:11)
[2024-07-04] MEDS: LORazepam 1 MG TABLET PO (08:44)
[2024-07-04] MEDS: LOXAPINE 10 MG 3 EACH PO ×2 (08:44→22:11)
[2024-07-04] MEDS: risperiDONE 1 MG TABLET PO ×3 (08:44→22:11)
--- NOTE | 2024-07-04 10:19 | P.PNPSI_ITS ---
Subjective Subjective Date of Service: 07/04/24 Reason For Visit: Crisis Subjective Notes: Conditional Voluntary Interim History: Active on unit. Slower speech and thought process than Thursday. Increased Ativan back to 2mg PO TID; pt aware. Increased Risperidal to 1mg PO TID. Patient focused on her bed at [facility]; she is worried she will lose it if she stays inpatient too long . Discussed discharging this week back to [facility]. denies SI/HI/VH/AH. Per nursing, did not sleep well last night. Medication Compliance: Yes Side effects from medications: No Attending Groups: Intermittent Review of Systems Constitutional: Reports as per HPI Eyes: Reports as per HPI Reports as per HPI Cardiovascular: Reports as per HPI Respiratory: Reports as per HPI Gastrointestinal: Reports as per HPI Genitourinary: Reports as per HPI Musculoskeletal: Reports as per HPI Skin/Breast: Reports as per HPI Reports as per HPI Psychiatric: Reports as per HPI Endocrine: Reports as per HPI Hematologic/Lymphatic: Reports as per HPI Allergic/Immunologic: Reports as per HPI Mental Status Exam Mental Status Exam Narrative: Pt is alert and oriented; behavior is cooperative and calm; dressed in hospital attire; mood is described as anxious , blunted affect; eye contact appropriate; Speech is normal volume, not pressured; some thought blocking, delayed responses to questions, focused on discharge; denies SI/HI/VH/AH. Diagnostics Vital Signs (24Hr): Vital Signs - 24 hr 07/03/24 20:00 07/04/24 07:30 Temperature 97.3 F 97.3 F Pulse Rate 95 109 H Respiratory Rate 16 16 Blood Pressure 127/79 119/83 Pulse Oximetry 97 94 Oxygen Delivery Method Room Air Room Air BMI result Body Mass Index 30.6 Labs 06/22/24 17:54 06/23/24 19:02 Medications Medications Current Medications Acetaminophen (Acetaminophen 325 Mg Tablet) 650 mg PO Q6H PRN PRN Reason: Headache/Pain Mild Scale (1-3) Al Hydroxide/Mg Hydroxide (Magnesium Hydrox/Alum Hydrox 30 Ml Oral.Susp) 30 ml PO Q6H PRN PRN Reason: Heartburn/Nausea Last Admin: 07/03/24 19:52 Dose: 30 ml Diphenhydramine HCl (Diphenhydramine Hcl 25 Mg Capsule) 50 mg PO BEDTIME [facility] Last Admin: 07/03/24 20:24 Dose: 50 mg Docusate Sodium (Docusate Sodium 100 Mg Capsule) 100 mg PO BID [facility] Last Admin: 07/04/24 08:44 Dose: 100 mg Hydroxyzine HCl (Hydroxyzine Hcl 25 Mg Tablet) 25 mg PO Q6H PRN PRN Reason: Anxiety Last Admin: 07/04/24 02:16 Dose: 25 mg Lorazepam (Lorazepam 1 Mg Tablet) 1 mg PO BID@0900,1500 [facility] Last Admin: 07/04/24 08:44 Dose: 1 mg Lorazepam (Lorazepam 1 Mg Tablet) 2 mg PO BEDTIME [facility] Last Admin: 07/03/24 20:23 Dose: 2 mg Magnesium Hydroxide (Milk Of Magnesia 30 Ml Oral.Susp) 30 ml PO DAILY PRN PRN Reason: Constipation Last Admin: 06/29/24 13:16 Dose: 30 ml Multivitamins/Vitamin C (Multivitamin Tablet) 1 tab PO DAILY [facility] Last Admin: 07/04/24 08:44 Dose: 1 tab Naltrexone HCl (Naltrexone Hcl 50 Mg Tablet) 50 mg PO DAILY PRN PRN Reason: Withdrawal Symptoms Last Admin: 06/29/24 14:39 Dose: 50 mg Nicotine (Nicotine 21 Mg Patch.Td24) 21 mg TRANSDERMA DAILY [facility] Last Admin: 07/04/24 08:44 Dose: Not Given Nicotine Polacrilex (Nicotine Polacrilex Lozenge 2 Mg Lozenge) 2 mg BUCCAL Q1H PRN PRN Reason: Nicotine Cravings Last Admin: 06/25/24 06:52 Dose: 2 mg Pt Own (Loxapine 25 (Mg)) 25 mg PO BEDTIME [facility] Last Admin: 07/03/24 20:22 Dose: 25 mg Pt Own (Loxapine 10 (Mg)) 3 each PO BID [facility] Last Admin: 07/04/24 08:44 Dose: 3 each Nystatin (Nystatin Powder 15 Gm Bottle) 1 appl TOPICAL DAILY [facility]; Protocol Last Admin: 07/04/24 10:09 Dose: Not Given Omeprazole (Omeprazole 20 Mg Capsule.Dr) 20 mg PO DAILY [facility] Last Admin: 07/04/24 08:44 Dose: 20 mg Risperidone (Risperidone 1 Mg Tablet) 1 mg PO BID [facility] Last Admin: 07/04/24 08:44 Dose: 1 mg Trazodone HCl (Trazodone Hcl 50 Mg Tablet) 150 mg PO BEDTIME [facility] Last Admin: 07/03/24 20:25 Dose: 150 mg Allergies Allergies Allergy/AdvReac Type Severity Reaction Status Date / Time Penicillins [PENICILLINS] Allergy Unknown RASH Verified 06/22/24 14:24 quetiapine [From SEROQUEL] Allergy Unknown DYSTONIA Verified 06/22/24 14:24 Assessment & Plan Assessment & Plan (1) Schizoaffective disorder: Status: Acute Code(s): F25.9 - Schizoaffective disorder, unspecified (2) PTSD (post-traumatic stress disorder): Status: Acute Code(s): F43.10 - Post-traumatic stress disorder, unspecified (3) Alcohol use disorder: Status: Acute Code(s): F10.90 - Alcohol use, unspecified, uncomplicated Plan Patient is a 58-year-old female with history of schizoaffective disorder, PTSD and alcohol use disorder, who presented to ER via ambulance from [facility] due to increased depression and not attending to her ADLs secondary to medication noncompliance. Plan: 06/25 very psychotic (AH), with paranoid delusions. She also presents with catatonia like symptoms including blank staring. She is on 3 antidepressants high doses, that will only worsen psychosis. will dc wellbutrin, effexor, will cut down trazodone. Will increase ativan 1mg po TID. will continue loxepine. 06/26 continue tx. 06/27: Keeping to self. retracted 3 day notice. showered. thought blocking with delayed responses; when asked if this is normal for patient, she stated, this is what drugs and alcohol did to my brain . Patient anxious regarding ECT, she reports discussing ECT once with Dr. Alegre but don't want it ; pt was informed that was not part of the treatment plan at this time. She expressed concern regarding the cameras on the unit and asked if they are able to see her while she is in the shower or room; pt was educated that cameras are only in common areas. she denies SI/HI/VH/AH. Continue current tx plan. 06/28: pt continues thought blocking with delayed responses; please see SW note regarding pt's baseline and collateral obtained. Pt perseverative today regarding seeing her daughter before she dies; pt stated, I don't want to . My daughter has a retraining order on me and I want to see her before I . Start: Risperidal 1mg PO BID Increase Ativan to 2mg PO TID 06/29: Keeping to self. pt continues thought blocking with delayed responses; per nursing, was more fluid in conversation last evening. Pt perseverative today regarding not getting ECT; pt informed she is not scheduled to receive ECT. medication compliant. sign 3 day notice and retracted 3 day today. Continue current tx plan. 06/30: Patient is no longer presenting with thought blocking or delayed responses; she was able to have a fluid conversation. Patient stated, I feel good. I'm not anxious or depressed. 2019 is the last time something like this happened where I was talking really slow . She denies SI/HI/VH/AH. Plan to start tapering on Ativan if continues with current presentation tomorrow; pt aware. 07/01: Active on unit, social with peers. attending groups. Patient continues to report feeling good; pt stated, I feel like I'm back to normal . Discussed taper of Ativan. Ativan decreased to 1mg PO BID@0900,1500 and 2mg PO bedtime; denies SI/HI/VH/AH. per nursing, slept 8 hours. Plan to discharge back to [facility] on Thursday. 07/02 keep same treatment. 07/03 keep same treatment 07/04: Active on unit. Slower speech and thought process than Thursday. Increased Ativan back to 2mg PO TID; pt aware. Increased Risperidal to 1mg PO TID. Patient focused on her bed at [facility]; she is worried she will lose it if she stays inpatient too long . Discussed discharging this week back to [facility]. denies SI/HI/VH/AH. Per nursing, did not sleep well last night. Patient educated on: diagnosis and medication risk/benefits Reason for continued inpatient stay Substantial Risk for: med/psych decompensation Time Spent With Patient Time: Total time managing care of this patient today _20___ minutes.
[2024-07-04] MEDS: Magnesium Hydrox/Alum Hydrox 30 ML ORAL.SUSP PO ×2 (13:19→22:13)
[2024-07-04] MEDS: LORazepam 1 MG TABLET 2 MG PO ×2 (14:06→22:09)
[2024-07-04 20:28] VITALS: BP 114/74; PULSE 104; RESP 16; TEMP 36.4; O2SAT 95
[2024-07-04] MEDS: traZODone HCL 50 MG TABLET 150 MG PO (22:09)
[2024-07-04] MEDS: diphenhydrAMINE HCL 25 MG CAPSULE 50 MG PO (22:10)
[2024-07-04] MEDS: LOXAPINE 25 MG 25 EACH PO (22:12)
[2024-07-05 07:49] VITALS: BP 113/72; PULSE 99; RESP 16; TEMP 36.4; O2SAT 96
[2024-07-05] MEDS: Omeprazole 20 MG CAPSULE.DR PO (08:32)
[2024-07-05] MEDS: LOXAPINE 10 MG 3 EACH PO ×2 (08:33→22:28)
[2024-07-05] MEDS: risperiDONE 1 MG TABLET PO ×3 (08:33→22:27)
[2024-07-05] MEDS: Multivitamin TABLET 1 TAB PO (08:33)
[2024-07-05] MEDS: LORazepam 1 MG TABLET 2 MG PO ×4 (08:33→22:27)
[2024-07-05] MEDS: Docusate Sodium 100 MG CAPSULE PO (08:33)
[2024-07-05] MEDS: Nystatin Powder 15 GM BOTTLE 1 APPL TOPICAL (09:52)
[2024-07-05] MEDS: hydrOXYzine HCL 25 MG TABLET PO (09:57)
--- NOTE | 2024-07-05 11:26 | HO.PSYCHPN ---
Subjective Subjective Date of Service: 07/05/24 Reason For Visit: Crisis Subjective Notes: Conditional Voluntary Interim History: Continues with slow speech and thought process. Ordered additional dose of one time, Ativan 2mg PO. Decrease trazodone to 100mg PO bedtime. denies SI/HI/VH/AH. Per nursing, slept 7 hours. pt reports she does not feel ready to leave yet ; social work spoke to [facility] who reports they plan on holding her bed. Medication Compliance: Yes Side effects from medications: No Attending Groups: Yes Review of Systems Constitutional: Reports as per HPI Eyes: Reports as per HPI Reports as per HPI Cardiovascular: Reports as per HPI Respiratory: Reports as per HPI Gastrointestinal: Reports as per HPI Musculoskeletal: Reports as per HPI Skin/Breast: Reports as per HPI Reports as per HPI Psychiatric: Reports as per HPI Endocrine: Reports as per HPI Hematologic/Lymphatic: Reports as per HPI Allergic/Immunologic: Reports as per HPI Mental Status Exam Mental Status Exam Narrative: Pt is alert and oriented; behavior is cooperative and calm; dressed in hospital attire; mood is described as anxious , blunted affect; eye contact appropriate; Speech is normal volume, not pressured; some thought blocking, delayed responses to questions, focused on discharge; denies SI/HI/VH/AH. Diagnostics Vital Signs (24Hr): Vital Signs - 24 hr 07/04/24 20:28 07/05/24 07:49 Temperature 97.5 F 97.5 F Pulse Rate 104 H 99 Respiratory Rate 16 16 Blood Pressure 114/74 113/72 Pulse Oximetry 95 96 Oxygen Delivery Method Room Air Room Air BMI result Body Mass Index 30.6 Labs 06/22/24 17:54 06/23/24 19:02 Medications Medications Current Medications Acetaminophen (Acetaminophen 325 Mg Tablet) 650 mg PO Q6H PRN PRN Reason: Headache/Pain Mild Scale (1-3) Al Hydroxide/Mg Hydroxide (Magnesium Hydrox/Alum Hydrox 30 Ml Oral.Susp) 30 ml PO Q6H PRN PRN Reason: Heartburn/Nausea Last Admin: 07/04/24 22:13 Dose: 30 ml Calcium Carbonate (Calcium Carbonate 750 Mg Tab.Chew) 750 mg PO Q6H PRN PRN Reason: Heartburn Diphenhydramine HCl (Diphenhydramine Hcl 25 Mg Capsule) 50 mg PO BEDTIME [facility] Last Admin: 07/04/24 22:10 Dose: 50 mg Docusate Sodium (Docusate Sodium 100 Mg Capsule) 100 mg PO BID [facility] Last Admin: 07/05/24 08:33 Dose: 100 mg Hydroxyzine HCl (Hydroxyzine Hcl 25 Mg Tablet) 25 mg PO Q6H PRN PRN Reason: Anxiety Last Admin: 07/05/24 09:57 Dose: 25 mg Lorazepam (Lorazepam 1 Mg Tablet) 2 mg PO TID [facility] Last Admin: 07/05/24 08:33 Dose: 2 mg Magnesium Hydroxide (Milk Of Magnesia 30 Ml Oral.Susp) 30 ml PO DAILY PRN PRN Reason: Constipation Last Admin: 06/29/24 13:16 Dose: 30 ml Multivitamins/Vitamin C (Multivitamin Tablet) 1 tab PO DAILY [facility] Last Admin: 07/05/24 08:33 Dose: 1 tab Naltrexone HCl (Naltrexone Hcl 50 Mg Tablet) 50 mg PO DAILY PRN PRN Reason: Withdrawal Symptoms Last Admin: 06/29/24 14:39 Dose: 50 mg Nicotine (Nicotine 21 Mg Patch.Td24) 21 mg TRANSDERMA DAILY [facility] Last Admin: 07/05/24 08:36 Dose: Not Given Nicotine Polacrilex (Nicotine Polacrilex Lozenge 2 Mg Lozenge) 2 mg BUCCAL Q1H PRN PRN Reason: Nicotine Cravings Last Admin: 06/25/24 06:52 Dose: 2 mg Pt Own (Loxapine 25 (Mg)) 25 mg PO BEDTIME [facility] Last Admin: 07/04/24 22:12 Dose: 25 mg Pt Own (Loxapine 10 (Mg)) 3 each PO BID [facility] Last Admin: 07/05/24 08:33 Dose: 3 each Nystatin (Nystatin Powder 15 Gm Bottle) 1 appl TOPICAL DAILY [facility]; Protocol Last Admin: 07/05/24 09:52 Dose: 1 appl Omeprazole (Omeprazole 20 Mg Capsule.Dr) 20 mg PO DAILY [facility] Last Admin: 07/05/24 08:32 Dose: 20 mg Risperidone (Risperidone 1 Mg Tablet) 1 mg PO TID [facility] Last Admin: 07/05/24 08:33 Dose: 1 mg Trazodone HCl (Trazodone Hcl 50 Mg Tablet) 150 mg PO BEDTIME [facility] Last Admin: 07/04/24 22:09 Dose: 150 mg Allergies Allergies Allergy/AdvReac Type Severity Reaction Status Date / Time Penicillins [PENICILLINS] Allergy Unknown RASH Verified 06/22/24 14:24 quetiapine [From SEROQUEL] Allergy Unknown DYSTONIA Verified 06/22/24 14:24 Assessment & Plan Assessment & Plan (1) Schizoaffective disorder: Status: Acute Code(s): F25.9 - Schizoaffective disorder, unspecified (2) PTSD (post-traumatic stress disorder): Status: Acute Code(s): F43.10 - Post-traumatic stress disorder, unspecified (3) Alcohol use disorder: Status: Acute Code(s): F10.90 - Alcohol use, unspecified, uncomplicated Plan Patient is a 58-year-old female with history of schizoaffective disorder, PTSD and alcohol use disorder, who presented to ER via ambulance from [facility] due to increased depression and not attending to her ADLs secondary to medication noncompliance. Plan: 06/25 very psychotic (AH), with paranoid delusions. She also presents with catatonia like symptoms including blank staring. She is on 3 antidepressants high doses, that will only worsen psychosis. will dc wellbutrin, effexor, will cut down trazodone. Will increase ativan 1mg po TID. will continue loxepine. 06/26 continue tx. 06/27: Keeping to self. retracted 3 day notice. showered. thought blocking with delayed responses; when asked if this is normal for patient, she stated, this is what drugs and alcohol did to my brain . Patient anxious regarding ECT, she reports discussing ECT once with Dr. Alegre but don't want it ; pt was informed that was not part of the treatment plan at this time. She expressed concern regarding the cameras on the unit and asked if they are able to see her while she is in the shower or room; pt was educated that cameras are only in common areas. she denies SI/HI/VH/AH. Continue current tx plan. 06/28: pt continues thought blocking with delayed responses; please see SW note regarding pt's baseline and collateral obtained. Pt perseverative today regarding seeing her daughter before she dies; pt stated, I don't want to . My daughter has a retraining order on me and I want to see her before I . Start: Risperidal 1mg PO BID Increase Ativan to 2mg PO TID 01/15: Keeping to self. pt continues thought blocking with delayed responses; per nursing, was more fluid in conversation last evening. Pt perseverative today regarding not getting ECT; pt informed she is not scheduled to receive ECT. medication compliant. sign 3 day notice and retracted 3 day today. Continue current tx plan. 06/30: Patient is no longer presenting with thought blocking or delayed responses; she was able to have a fluid conversation. Patient stated, I feel good. I'm not anxious or depressed. 2019 is the last time something like this happened where I was talking really slow . She denies SI/HI/VH/AH. Plan to start tapering on Ativan if continues with current presentation tomorrow; pt aware. 07/01: Active on unit, social with peers. attending groups. Patient continues to report feeling good; pt stated, I feel like I'm back to normal . Discussed taper of Ativan. Ativan decreased to 1mg PO BID@0900,1500 and 2mg PO bedtime; denies SI/HI/VH/AH. per nursing, slept 8 hours. Plan to discharge back to [facility] on Thursday. 07/02 keep same treatment. 07/03 keep same treatment 07/04: Active on unit. Slower speech and thought process than Thursday. Increased Ativan back to 2mg PO TID; pt aware. Increased Risperidal to 1mg PO TID. Patient focused on her bed at [facility]; she is worried she will lose it if she stays inpatient too long . Discussed discharging this week back to [facility]. denies SI/HI/VH/AH. Per nursing, did not sleep well last night. 07/05: Continues with slow speech and thought process. Ordered additional dose of one time, Ativan 2mg PO. Decrease trazodone to 100mg PO bedtime. denies SI/HI/VH/AH. Per nursing, slept 7 hours. pt reports she does not feel ready to leave yet ; social work spoke to [facility] who reports they plan on holding her bed. Patient educated on: diagnosis and medication risk/benefits Reason for continued inpatient stay Substantial Risk for: med/psych decompensation Time Spent With Patient Time: Total time managing care of this patient today _20___ minutes.
[2024-07-05] MEDS: Calcium Carbonate 750 MG TAB.CHEW PO (15:11)
[2024-07-05 20:00] VITALS: BP 111/60; PULSE 100; RESP 16; TEMP 36.6; O2SAT 96
[2024-07-05] MEDS: diphenhydrAMINE HCL 25 MG CAPSULE 50 MG PO (22:27)
[2024-07-05] MEDS: traZODone HCL 100 MG TABLET PO (22:28)
[2024-07-05] MEDS: LOXAPINE 25 MG 25 EACH PO (22:28)
[2024-07-06] MEDS: hydrOXYzine HCL 25 MG TABLET PO ×2 (05:12→21:53)
[2024-07-06 07:30] VITALS: BP 121/76; PULSE 94; RESP 16; TEMP 36.3
[2024-07-06] MEDS: Omeprazole 20 MG CAPSULE.DR PO (08:53)
[2024-07-06] MEDS: LORazepam 1 MG TABLET 2 MG PO ×4 (08:53→21:54)
[2024-07-06] MEDS: LOXAPINE 10 MG 3 EACH PO ×2 (08:54→21:52)
[2024-07-06] MEDS: risperiDONE 1 MG TABLET PO ×2 (08:54→21:54)
[2024-07-06] MEDS: Nystatin Powder 15 GM BOTTLE 1 APPL TOPICAL (08:57)
[2024-07-06] MEDS: Magnesium Hydrox/Alum Hydrox 30 ML ORAL.SUSP PO (09:36)
--- NOTE | 2024-07-06 12:41 | HO.PSYCHPN ---
Subjective Subjective Date of Service: 07/06/24 Reason For Visit: Crisis Subjective Notes: Conditional Voluntary Interim History: Active on unit. Continues with slow speech and some thought blocking. Ordered additional dose of one time, Ativan 2mg PO. Decrease risperidal to 1mg PO bedtime. denies SI/HI/VH/AH. Pt reports she is hoping to improve soon and return to [facility]. keeping to self. pleasant. Medication Compliance: Yes Side effects from medications: No Attending Groups: Intermittent Review of Systems Constitutional: Reports as per HPI Eyes: Reports as per HPI Reports as per HPI Cardiovascular: Reports as per HPI Respiratory: Reports as per HPI Gastrointestinal: Reports as per HPI Musculoskeletal: Reports as per HPI Skin/Breast: Reports as per HPI Reports as per HPI Psychiatric: Reports as per HPI Endocrine: Reports as per HPI Hematologic/Lymphatic: Reports as per HPI Allergic/Immunologic: Reports as per HPI Mental Status Exam Mental Status Exam Narrative: Pt is alert and oriented; behavior is cooperative and calm; dressed in hospital attire; mood is described as anxious , blunted affect; eye contact appropriate; Speech is normal volume, not pressured; some thought blocking, delayed responses to questions, focused on discharge; denies SI/HI/VH/AH. Diagnostics Vital Signs (24Hr): Vital Signs - 24 hr 07/05/24 20:00 07/06/24 07:30 Temperature 97.8 F 97.3 F Pulse Rate 100 94 Respiratory Rate 16 16 Blood Pressure 111/60 121/76 Pulse Oximetry 96 Oxygen Delivery Method Room Air BMI result Body Mass Index 30.6 Labs 06/22/24 17:54 06/23/24 19:02 Medications Medications Current Medications Acetaminophen (Acetaminophen 325 Mg Tablet) 650 mg PO Q6H PRN PRN Reason: Headache/Pain Mild Scale (1-3) Al Hydroxide/Mg Hydroxide (Magnesium Hydrox/Alum Hydrox 30 Ml Oral.Susp) 30 ml PO Q6H PRN PRN Reason: Heartburn/Nausea Last Admin: 07/06/24 09:36 Dose: 30 ml Calcium Carbonate (Calcium Carbonate 750 Mg Tab.Chew) 750 mg PO Q6H PRN PRN Reason: Heartburn Last Admin: 07/05/24 15:11 Dose: 750 mg Diphenhydramine HCl (Diphenhydramine Hcl 25 Mg Capsule) 50 mg PO BEDTIME [facility]AB[facility] Last Admin: 07/05/24 22:27 Dose: 50 mg Docusate Sodium (Docusate Sodium 100 Mg Capsule) 100 mg PO BID PRN PRN Reason: Constipation Hydroxyzine HCl (Hydroxyzine Hcl 25 Mg Tablet) 25 mg PO Q6H PRN PRN Reason: Anxiety Last Admin: 07/06/24 05:12 Dose: 25 mg Lorazepam (Lorazepam 1 Mg Tablet) 2 mg PO TID COUNTS INCLUDE 234 BEDS AT THE [facility] Last Admin: 07/06/24 08:53 Dose: 2 mg Magnesium Hydroxide (Milk Of Magnesia 30 Ml Oral.Susp) 30 ml PO DAILY PRN PRN Reason: Constipation Last Admin: 06/29/24 13:16 Dose: 30 ml Naltrexone HCl (Naltrexone Hcl 50 Mg Tablet) 50 mg PO DAILY PRN PRN Reason: Withdrawal Symptoms Last Admin: 06/29/24 14:39 Dose: 50 mg Nicotine Polacrilex (Nicotine Polacrilex Lozenge 2 Mg Lozenge) 2 mg BUCCAL Q1H PRN PRN Reason: Nicotine Cravings Last Admin: 06/25/24 06:52 Dose: 2 mg Pt Own (Loxapine 25 (Mg)) 25 mg PO BEDTIME COUNTS INCLUDE 234 BEDS AT THE [facility] Last Admin: 07/05/24 22:28 Dose: 25 mg Pt Own (Loxapine 10 (Mg)) 3 each PO BID COUNTS INCLUDE 234 BEDS AT THE [facility] Last Admin: 07/06/24 08:54 Dose: 3 each Nystatin (Nystatin Powder 15 Gm Bottle) 1 appl TOPICAL DAILY COUNTS INCLUDE 234 BEDS AT THE [facility]; Protocol Last Admin: 07/06/24 08:57 Dose: 1 appl Omeprazole (Omeprazole 20 Mg Capsule.Dr) 20 mg PO DAILY COUNTS INCLUDE 234 BEDS AT THE [facility] Last Admin: 07/06/24 08:53 Dose: 20 mg Risperidone (Risperidone 1 Mg Tablet) 1 mg PO TID COUNTS INCLUDE 234 BEDS AT THE [facility] Last Admin: 07/06/24 08:54 Dose: 1 mg Trazodone HCl (Trazodone Hcl 100 Mg Tablet) 100 mg PO BEDTIME COUNTS INCLUDE 234 BEDS AT THE [facility] Last Admin: 07/05/24 22:28 Dose: 100 mg Allergies Allergies Allergy/AdvReac Type Severity Reaction Status Date / Time Penicillins [PENICILLINS] Allergy Unknown RASH Verified 06/22/24 14:24 quetiapine [From SEROQUEL] Allergy Unknown DYSTONIA Verified 06/22/24 14:24 Assessment & Plan Assessment & Plan (1) Schizoaffective disorder: Status: Acute Code(s): F25.9 - Schizoaffective disorder, unspecified (2) PTSD (post-traumatic stress disorder): Status: Acute Code(s): F43.10 - Post-traumatic stress disorder, unspecified (3) Alcohol use disorder: Status: Acute Code(s): F10.90 - Alcohol use, unspecified, uncomplicated Plan Patient is a 58-year-old female with history of schizoaffective disorder, PTSD and alcohol use disorder, who presented to ER via ambulance from [facility] due to increased depression and not attending to her ADLs secondary to medication noncompliance. Plan: 06/25 very psychotic (AH), with paranoid delusions. She also presents with catatonia like symptoms including blank staring. She is on 3 antidepressants high doses, that will only worsen psychosis. will dc wellbutrin, effexor, will cut down trazodone. Will increase ativan 1mg po TID. will continue loxepine. 06/26 continue tx. 06/27: Keeping to self. retracted 3 day notice. showered. thought blocking with delayed responses; when asked if this is normal for patient, she stated, this is what drugs and alcohol did to my brain . Patient anxious regarding ECT, she reports discussing ECT once with Dr. Alegre but don't want it ; pt was informed that was not part of the treatment plan at this time. She expressed concern regarding the cameras on the unit and asked if they are able to see her while she is in the shower or room; pt was educated that cameras are only in common areas. she denies SI/HI/VH/AH. Continue current tx plan. 06/28: pt continues thought blocking with delayed responses; please see SW note regarding pt's baseline and collateral obtained. Pt perseverative today regarding seeing her daughter before she dies; pt stated, I don't want to . My daughter has a retraining order on me and I want to see her before I . Start: Risperidal 1mg PO BID Increase Ativan to 2mg PO TID 06/29: Keeping to self. pt continues thought blocking with delayed responses; per nursing, was more fluid in conversation last evening. Pt perseverative today regarding not getting ECT; pt informed she is not scheduled to receive ECT. medication compliant. sign 3 day notice and retracted 3 day today. Continue current tx plan. 06/30: Patient is no longer presenting with thought blocking or delayed responses; she was able to have a fluid conversation. Patient stated, I feel good. I'm not anxious or depressed. 2019 is the last time something like this happened where I was talking really slow . She denies SI/HI/VH/AH. Plan to start tapering on Ativan if continues with current presentation tomorrow; pt aware. 07/01: Active on unit, social with peers. attending groups. Patient continues to report feeling good; pt stated, I feel like I'm back to normal . Discussed taper of Ativan. Ativan decreased to 1mg PO BID@0900,1500 and 2mg PO bedtime; denies SI/HI/VH/AH. per nursing, slept 8 hours. Plan to discharge back to [facility] on Thursday. 07/02 keep same treatment. 07/03 keep same treatment 07/04: Active on unit. Slower speech and thought process than Thursday. Increased Ativan back to 2mg PO TID; pt aware. Increased Risperidal to 1mg PO TID. Patient focused on her bed at [facility]; she is worried she will lose it if she stays inpatient too long . Discussed discharging this week back to [facility]. denies SI/HI/VH/AH. Per nursing, did not sleep well last night. 07/05: Continues with slow speech and thought process. Ordered additional dose of one time, Ativan 2mg PO. Decrease trazodone to 100mg PO bedtime. denies SI/HI/VH/AH. Per nursing, slept 7 hours. pt reports she does not feel ready to leave yet ; social work spoke to [facility] who reports they plan on holding her bed. 07/06: Active on unit. Continues with slow speech and some thought blocking. Ordered additional dose of one time, Ativan 2mg PO. Decrease risperidal to 1mg PO bedtime. denies SI/HI/VH/AH. Pt reports she is hoping to improve soon and return to [facility]. keeping to self. pleasant. Patient educated on: diagnosis and medication risk/benefits Reason for continued inpatient stay Substantial Risk for: med/psych decompensation Time Spent With Patient Time: Total time managing care of this patient today _20___ minutes.
[2024-07-06] MEDS: Calcium Carbonate 750 MG TAB.CHEW PO (14:02)
[2024-07-06 20:00] VITALS: RESP 16
[2024-07-06] MEDS: LOXAPINE 25 MG 25 EACH PO (21:52)
[2024-07-06] MEDS: diphenhydrAMINE HCL 25 MG CAPSULE 50 MG PO (21:54)
[2024-07-06] MEDS: traZODone HCL 100 MG TABLET PO (21:54)
[2024-07-07 07:15] VITALS: BP 110/67; PULSE 100; RESP 16; TEMP 36.8; O2SAT 93
[2024-07-07] MEDS: Omeprazole 20 MG CAPSULE.DR PO (08:25)
[2024-07-07] MEDS: LORazepam 1 MG TABLET 2 MG PO ×2 (08:25→22:07)
[2024-07-07] MEDS: LOXAPINE 10 MG 3 EACH PO ×2 (08:25→22:07)
[2024-07-07] MEDS: Nystatin Powder 15 GM BOTTLE 1 APPL TOPICAL (08:29)
[2024-07-07 09:14] VITALS: BMI 30.9
[2024-07-07] MEDS: Calcium Carbonate 750 MG TAB.CHEW PO (09:39)
[2024-07-07] MEDS: LORazepam 1 MG TABLET 3 MG PO (15:03)
--- NOTE | 2024-07-07 15:20 | P.PNPSI_ITS ---
Subjective Subjective Date of Service: 07/07/24 Reason For Visit: Crisis Subjective Notes: Conditional Voluntary Interim History: Continues with slow speech and some thought blocking. Increased Ativan to 3mg PO BID@0900,1500 and 2mg PO bedtime; pt aware. denies SI/HI/VH/AH. per child protective services social workerAngeli, pt layed down on hallway floor this morning; when T/W asked pt why she did this, pt stated, I wanted attention . pt encouraged to speak with staff if she is in need of attention. Medication Compliance: Yes Side effects from medications: No Review of Systems Constitutional: Reports as per HPI Eyes: Reports as per HPI Reports as per HPI Cardiovascular: Reports as per HPI Respiratory: Reports as per HPI Gastrointestinal: Reports as per HPI Musculoskeletal: Reports as per HPI Skin/Breast: Reports as per HPI Reports as per HPI Psychiatric: Reports as per HPI Endocrine: Reports as per HPI Hematologic/Lymphatic: Reports as per HPI Allergic/Immunologic: Reports as per HPI Mental Status Exam Mental Status Exam Narrative: Pt is alert and oriented; behavior is cooperative and calm; dressed in hospital attire; mood is described as anxious , blunted affect; eye contact appropriate; Speech is normal volume, not pressured; some thought blocking, delayed responses to questions, focused on discharge; denies SI/HI/VH/AH. Diagnostics Vital Signs (24Hr): Vital Signs - 24 hr 07/06/24 20:00 07/07/24 07:15 Temperature 98.2 F Pulse Rate 100 Respiratory Rate 16 16 Blood Pressure 110/67 Pulse Oximetry 93 Oxygen Delivery Method Room Air BMI result Body Mass Index 30.9 Labs 06/22/24 17:54 06/23/24 19:02 Medications Medications Current Medications Acetaminophen (Acetaminophen 325 Mg Tablet) 650 mg PO Q6H PRN PRN Reason: Headache/Pain Mild Scale (1-3) Al Hydroxide/Mg Hydroxide (Magnesium Hydrox/Alum Hydrox 30 Ml Oral.Susp) 30 ml PO Q6H PRN PRN Reason: Heartburn/Nausea Last Admin: 07/06/24 09:36 Dose: 30 ml Calcium Carbonate (Calcium Carbonate 750 Mg Tab.Chew) 750 mg PO Q6H PRN PRN Reason: Heartburn Last Admin: 07/07/24 09:39 Dose: 750 mg Diphenhydramine HCl (Diphenhydramine Hcl 25 Mg Capsule) 50 mg PO BEDTIME ISABEL Last Admin: 07/06/24 21:54 Dose: 50 mg Docusate Sodium (Docusate Sodium 100 Mg Capsule) 100 mg PO BID PRN PRN Reason: Constipation Hydroxyzine HCl (Hydroxyzine Hcl 25 Mg Tablet) 25 mg PO Q6H PRN PRN Reason: Anxiety Last Admin: 07/06/24 21:53 Dose: 25 mg Lorazepam (Lorazepam 1 Mg Tablet) 3 mg PO BID@0900,1500 [facility] Last Admin: 07/07/24 15:03 Dose: 3 mg Lorazepam (Lorazepam 1 Mg Tablet) 2 mg PO BEDTIME [facility] Magnesium Hydroxide (Milk Of Magnesia 30 Ml Oral.Susp) 30 ml PO DAILY PRN PRN Reason: Constipation Last Admin: 06/29/24 13:16 Dose: 30 ml Naltrexone HCl (Naltrexone Hcl 50 Mg Tablet) 50 mg PO DAILY PRN PRN Reason: Withdrawal Symptoms Last Admin: 06/29/24 14:39 Dose: 50 mg Nicotine Polacrilex (Nicotine Polacrilex Lozenge 2 Mg Lozenge) 2 mg BUCCAL Q1H PRN PRN Reason: Nicotine Cravings Last Admin: 06/25/24 06:52 Dose: 2 mg Pt Own (Loxapine 25 (Mg)) 25 mg PO BEDTIME ISABEL Last Admin: 07/06/24 21:52 Dose: 25 mg Pt Own (Loxapine 10 (Mg)) 3 each PO BID [facility] Last Admin: 07/07/24 08:25 Dose: 3 each Nystatin (Nystatin Powder 15 Gm Bottle) 1 appl TOPICAL DAILY [facility]; Protocol Last Admin: 07/07/24 08:29 Dose: 1 appl Omeprazole (Omeprazole 20 Mg Capsule.Dr) 20 mg PO DAILY ISABEL Last Admin: 07/07/24 08:25 Dose: 20 mg Risperidone (Risperidone 1 Mg Tablet) 1 mg PO BEDTIME [facility] Last Admin: 07/06/24 21:54 Dose: 1 mg Trazodone HCl (Trazodone Hcl 100 Mg Tablet) 100 mg PO BEDTIME [facility] Last Admin: 07/06/24 21:54 Dose: 100 mg Allergies Allergies Allergy/AdvReac Type Severity Reaction Status Date / Time Penicillins [PENICILLINS] Allergy Unknown RASH Verified 06/22/24 14:24 quetiapine [From SEROQUEL] Allergy Unknown DYSTONIA Verified 06/22/24 14:24 Assessment & Plan Assessment & Plan (1) Schizoaffective disorder: Status: Acute Code(s): F25.9 - Schizoaffective disorder, unspecified (2) PTSD (post-traumatic stress disorder): Status: Acute Code(s): F43.10 - Post-traumatic stress disorder, unspecified (3) Alcohol use disorder: Status: Acute Code(s): F10.90 - Alcohol use, unspecified, uncomplicated Plan Patient is a 58-year-old female with history of schizoaffective disorder, PTSD and alcohol use disorder, who presented to ER via ambulance from [facility] due to increased depression and not attending to her ADLs secondary to medication noncompliance. Plan: 06/25 very psychotic (AH), with paranoid delusions. She also presents with catatonia like symptoms including blank staring. She is on 3 antidepressants high doses, that will only worsen psychosis. will dc wellbutrin, effexor, will cut down trazodone. Will increase ativan 1mg po TID. will continue loxepine. 06/26 continue tx. 06/27: Keeping to self. retracted 3 day notice. showered. thought blocking with delayed responses; when asked if this is normal for patient, she stated, this is what drugs and alcohol did to my brain . Patient anxious regarding ECT, she reports discussing ECT once with Dr. Alegre but don't want it ; pt was informed that was not part of the treatment plan at this time. She expressed concern regarding the cameras on the unit and asked if they are able to see her while she is in the shower or room; pt was educated that cameras are only in common areas. she denies SI/HI/VH/AH. Continue current tx plan. 06/28: pt continues thought blocking with delayed responses; please see SW note regarding pt's baseline and collateral obtained. Pt perseverative today regarding seeing her daughter before she dies; pt stated, I don't want to . My daughter has a retraining order on me and I want to see her before I . Start: Risperidal 1mg PO BID Increase Ativan to 2mg PO TID 06/29: Keeping to self. pt continues thought blocking with delayed responses; per nursing, was more fluid in conversation last evening. Pt perseverative today regarding not getting ECT; pt informed she is not scheduled to receive ECT. medication compliant. sign 3 day notice and retracted 3 day today. Continue current tx plan. 06/30: Patient is no longer presenting with thought blocking or delayed responses; she was able to have a fluid conversation. Patient stated, I feel good. I'm not anxious or depressed. 2020 is the last time something like this happened where I was talking really slow . She denies SI/HI/VH/AH. Plan to start tapering on Ativan if continues with current presentation tomorrow; pt aware. 07/01: Active on unit, social with peers. attending groups. Patient continues to report feeling good; pt stated, I feel like I'm back to normal . Discussed taper of Ativan. Ativan decreased to 1mg PO BID@0900,1500 and 2mg PO bedtime; denies SI/HI/VH/AH. per nursing, slept 8 hours. Plan to discharge back to [facility] on Thursday. 07/02 keep same treatment. 07/03 keep same treatment 07/04: Active on unit. Slower speech and thought process than Thursday. Increased Ativan back to 2mg PO TID; pt aware. Increased Risperidal to 1mg PO TID. Patient focused on her bed at [facility]; she is worried she will lose it if she stays inpatient too long . Discussed discharging this week back to [facility]. denies SI/HI/VH/AH. Per nursing, did not sleep well last night. 07/05: Continues with slow speech and thought process. Ordered additional dose of one time, Ativan 2mg PO. Decrease trazodone to 100mg PO bedtime. denies SI/HI/VH/AH. Per nursing, slept 7 hours. pt reports she does not feel ready to leave yet ; social work spoke to [facility] who reports they plan on holding her bed. 07/06: Active on unit. Continues with slow speech and some thought blocking. Ordered additional dose of one time, Ativan 2mg PO. Decrease risperidal to 1mg PO bedtime. denies SI/HI/VH/AH. Pt reports she is hoping to improve soon and return to [facility]. keeping to self. pleasant. 07/07: Continues with slow speech and some thought blocking. Increased Ativan to 3mg PO BID@0900,1500 and 2mg PO bedtime; pt aware. denies SI/HI/VH/AH. per child protective services social workerAngeli, pt layed down on hallway floor this morning; when T/W asked pt why she did this, pt stated, I wanted attention . pt encouraged to speak with staff if she is in need of attention. Patient educated on: diagnosis, medication risk/benefits and therapeutic strategies Reason for continued inpatient stay Substantial Risk for: med/psych decompensation Time Spent With Patient Time: Total time managing care of this patient today _20___ minutes.
[2024-07-07 20:00] VITALS: BP 110/75; PULSE 100; RESP 16; TEMP 36.6; O2SAT 95
[2024-07-07] MEDS: LOXAPINE 25 MG 25 EACH PO (22:06)
[2024-07-07] MEDS: risperiDONE 1 MG TABLET PO (22:08)
[2024-07-07] MEDS: traZODone HCL 100 MG TABLET PO (22:08)
[2024-07-07] MEDS: diphenhydrAMINE HCL 25 MG CAPSULE 50 MG PO (22:08)
[2024-07-08 07:20] VITALS: BP 113/81; PULSE 97; RESP 16; TEMP 36.4; O2SAT 95
--- NOTE | 2024-07-08 09:08 | HO.PSYCHPN ---
Subjective Subjective Date of Service: 07/08/24 Reason For Visit: Crisis Subjective Notes: Conditional Voluntary Interim History: Speech and thought process appear to be improving. Patient stated, I feel like I'm starting to talk normally . Increased Ativan to 3mg PO TID; pt aware. denies SI/HI/VH/AH. Keeping to self. per nursing, slept 8 hours last night. Medication Compliance: Yes Side effects from medications: No Attending Groups: Intermittent Review of Systems Constitutional: Reports as per HPI Eyes: Reports as per HPI Reports as per HPI Cardiovascular: Reports as per HPI Respiratory: Reports as per HPI Gastrointestinal: Reports as per HPI Musculoskeletal: Reports as per HPI Skin/Breast: Reports as per HPI Reports as per HPI Psychiatric: Reports as per HPI Endocrine: Reports as per HPI Hematologic/Lymphatic: Reports as per HPI Allergic/Immunologic: Reports as per HPI Mental Status Exam Mental Status Exam Narrative: Pt is alert and oriented; behavior is cooperative and calm; dressed in hospital attire; mood is described as anxious , blunted affect; eye contact appropriate; Speech is normal volume, not pressured;continues with slow speech but speech is more spontaneous, focused on discharge; denies SI/HI/VH/AH. Diagnostics Vital Signs (24Hr): Vital Signs - 24 hr 07/07/24 20:00 07/08/24 07:20 Temperature 97.8 F 97.5 F Pulse Rate 100 97 Respiratory Rate 16 16 Blood Pressure 110/75 113/81 Pulse Oximetry 95 95 Oxygen Delivery Method Room Air Room Air BMI result Body Mass Index 30.9 Labs 06/22/24 17:54 06/23/24 19:02 Medications Medications Current Medications Acetaminophen (Acetaminophen 325 Mg Tablet) 650 mg PO Q6H PRN PRN Reason: Headache/Pain Mild Scale (1-3) Al Hydroxide/Mg Hydroxide (Magnesium Hydrox/Alum Hydrox 30 Ml Oral.Susp) 30 ml PO Q6H PRN PRN Reason: Heartburn/Nausea Last Admin: 07/06/24 09:36 Dose: 30 ml Calcium Carbonate (Calcium Carbonate 750 Mg Tab.Chew) 750 mg PO Q6H PRN PRN Reason: Heartburn Last Admin: 07/07/24 09:39 Dose: 750 mg Diphenhydramine HCl (Diphenhydramine Hcl 25 Mg Capsule) 50 mg PO BEDTIME ISABEL Last Admin: 07/07/24 22:08 Dose: 50 mg Docusate Sodium (Docusate Sodium 100 Mg Capsule) 100 mg PO BID PRN PRN Reason: Constipation Hydroxyzine HCl (Hydroxyzine Hcl 25 Mg Tablet) 25 mg PO Q6H PRN PRN Reason: Anxiety Last Admin: 07/06/24 21:53 Dose: 25 mg Lorazepam (Lorazepam 1 Mg Tablet) 3 mg PO BID@0900,1500 [facility] Last Admin: 07/07/24 15:03 Dose: 3 mg Lorazepam (Lorazepam 1 Mg Tablet) 2 mg PO BEDTIME ISABEL Last Admin: 07/07/24 22:07 Dose: 2 mg Magnesium Hydroxide (Milk Of Magnesia 30 Ml Oral.Susp) 30 ml PO DAILY PRN PRN Reason: Constipation Last Admin: 06/29/24 13:16 Dose: 30 ml Naltrexone HCl (Naltrexone Hcl 50 Mg Tablet) 50 mg PO DAILY PRN PRN Reason: Withdrawal Symptoms Last Admin: 06/29/24 14:39 Dose: 50 mg Nicotine Polacrilex (Nicotine Polacrilex Lozenge 2 Mg Lozenge) 2 mg BUCCAL Q1H PRN PRN Reason: Nicotine Cravings Last Admin: 06/25/24 06:52 Dose: 2 mg Pt Own (Loxapine 25 (Mg)) 25 mg PO BEDTIME ISABEL Last Admin: 07/07/24 22:06 Dose: 25 mg Pt Own (Loxapine 10 (Mg)) 3 each PO BID [facility] Last Admin: 07/07/24 22:07 Dose: 3 each Nystatin (Nystatin Powder 15 Gm Bottle) 1 appl TOPICAL DAILY [facility]; Protocol Last Admin: 07/07/24 08:29 Dose: 1 appl Omeprazole (Omeprazole 20 Mg Capsule.Dr) 20 mg PO DAILY ISABEL Last Admin: 07/07/24 08:25 Dose: 20 mg Risperidone (Risperidone 1 Mg Tablet) 1 mg PO BEDTIME [facility] Last Admin: 07/07/24 22:08 Dose: 1 mg Trazodone HCl (Trazodone Hcl 100 Mg Tablet) 100 mg PO BEDTIME [facility] Last Admin: 07/07/24 22:08 Dose: 100 mg Allergies Allergies Allergy/AdvReac Type Severity Reaction Status Date / Time Penicillins [PENICILLINS] Allergy Unknown RASH Verified 06/22/24 14:24 quetiapine [From SEROQUEL] Allergy Unknown DYSTONIA Verified 06/22/24 14:24 Assessment & Plan Assessment & Plan (1) Schizoaffective disorder: Status: Acute Code(s): F25.9 - Schizoaffective disorder, unspecified (2) PTSD (post-traumatic stress disorder): Status: Acute Code(s): F43.10 - Post-traumatic stress disorder, unspecified (3) Alcohol use disorder: Status: Acute Code(s): F10.90 - Alcohol use, unspecified, uncomplicated Plan Patient is a 58-year-old female with history of schizoaffective disorder, PTSD and alcohol use disorder, who presented to ER via ambulance from [facility] due to increased depression and not attending to her ADLs secondary to medication noncompliance. Plan: 06/25 very psychotic (AH), with paranoid delusions. She also presents with catatonia like symptoms including blank staring. She is on 3 antidepressants high doses, that will only worsen psychosis. will dc wellbutrin, effexor, will cut down trazodone. Will increase ativan 1mg po TID. will continue loxepine. 06/26 continue tx. 06/27: Keeping to self. retracted 3 day notice. showered. thought blocking with delayed responses; when asked if this is normal for patient, she stated, this is what drugs and alcohol did to my brain . Patient anxious regarding ECT, she reports discussing ECT once with Dr. Alegre but don't want it ; pt was informed that was not part of the treatment plan at this time. She expressed concern regarding the cameras on the unit and asked if they are able to see her while she is in the shower or room; pt was educated that cameras are only in common areas. she denies SI/HI/VH/AH. Continue current tx plan. 06/28: pt continues thought blocking with delayed responses; please see SW note regarding pt's baseline and collateral obtained. Pt perseverative today regarding seeing her daughter before she dies; pt stated, I don't want to . My daughter has a retraining order on me and I want to see her before I . Start: Risperidal 1mg PO BID Increase Ativan to 2mg PO TID 06/29: Keeping to self. pt continues thought blocking with delayed responses; per nursing, was more fluid in conversation last evening. Pt perseverative today regarding not getting ECT; pt informed she is not scheduled to receive ECT. medication compliant. sign 3 day notice and retracted 3 day today. Continue current tx plan. 06/30: Patient is no longer presenting with thought blocking or delayed responses; she was able to have a fluid conversation. Patient stated, I feel good. I'm not anxious or depressed. 2020 is the last time something like this happened where I was talking really slow . She denies SI/HI/VH/AH. Plan to start tapering on Ativan if continues with current presentation tomorrow; pt aware. 07/01: Active on unit, social with peers. attending groups. Patient continues to report feeling good; pt stated, I feel like I'm back to normal . Discussed taper of Ativan. Ativan decreased to 1mg PO BID@0900,1500 and 2mg PO bedtime; denies SI/HI/VH/AH. per nursing, slept 8 hours. Plan to discharge back to [facility] on Thursday. 07/02 keep same treatment. 07/03 keep same treatment 07/04: Active on unit. Slower speech and thought process than Thursday. Increased Ativan back to 2mg PO TID; pt aware. Increased Risperidal to 1mg PO TID. Patient focused on her bed at [facility]; she is worried she will lose it if she stays inpatient too long . Discussed discharging this week back to [facility]. denies SI/HI/VH/AH. Per nursing, did not sleep well last night. 07/05: Continues with slow speech and thought process. Ordered additional dose of one time, Ativan 2mg PO. Decrease trazodone to 100mg PO bedtime. denies SI/HI/VH/AH. Per nursing, slept 7 hours. pt reports she does not feel ready to leave yet ; social work spoke to [facility] who reports they plan on holding her bed. 07/06: Active on unit. Continues with slow speech and some thought blocking. Ordered additional dose of one time, Ativan 2mg PO. Decrease risperidal to 1mg PO bedtime. denies SI/HI/VH/AH. Pt reports she is hoping to improve soon and return to [facility]. keeping to self. pleasant. 07/07: Continues with slow speech and some thought blocking. Increased Ativan to 3mg PO BID@0900,1500 and 2mg PO bedtime; pt aware. denies SI/HI/VH/AH. per social welfare administratorAngeli, pt layed down on hallway floor this morning; when T/W asked pt why she did this, pt stated, I wanted attention . pt encouraged to speak with staff if she is in need of attention. 07/08: Speech and thought process appear to be improving. Patient stated, I feel like I'm starting to talk normally . Increased Ativan to 3mg PO TID; pt aware. denies SI/HI/VH/AH. Keeping to self. per nursing, slept 8 hours last night. Patient educated on: diagnosis and medication risk/benefits Reason for continued inpatient stay Substantial Risk for: med/psych decompensation Time Spent With Patient Time: Total time managing care of this patient today _20___ minutes.
[2024-07-08] MEDS: LOXAPINE 10 MG 3 EACH PO ×2 (09:09→22:24)
[2024-07-08] MEDS: Nystatin Powder 15 GM BOTTLE 1 APPL TOPICAL (09:11)
[2024-07-08] MEDS: Omeprazole 20 MG CAPSULE.DR PO (09:14)
[2024-07-08] MEDS: LORazepam 1 MG TABLET 3 MG PO ×3 (09:15→22:18)
--- NOTE | 2024-07-08 09:51 | PC.NURSE ---
Pt will run out of Loxapine this coming weekend. This keno writer/runner called [facility] outpatient pharmacy, and they are unable to get in correct doses unitl 07/11. This keno writer/runner texted provider Arianne Zamora NP on [employer] and explained the situation. She also told provider in person. Action pending.
[2024-07-08] MEDS: Calcium Carbonate 750 MG TAB.CHEW PO (13:59)
[2024-07-08 20:00] VITALS: BP 118/80; PULSE 95; RESP 15; TEMP 36.8; O2SAT 96
[2024-07-08] MEDS: traZODone HCL 100 MG TABLET PO (22:19)
[2024-07-08] MEDS: risperiDONE 1 MG TABLET PO (22:19)
[2024-07-08] MEDS: diphenhydrAMINE HCL 25 MG CAPSULE 50 MG PO (22:20)
[2024-07-08] MEDS: LOXAPINE 25 MG 25 EACH PO (22:23)
[2024-07-09] MEDS: hydrOXYzine HCL 25 MG TABLET PO (06:50)
[2024-07-09 07:10] VITALS: BP 116/72; PULSE 103; RESP 16; TEMP 36.6; O2SAT 95
[2024-07-09] MEDS: Docusate Sodium 100 MG CAPSULE PO (08:47)
[2024-07-09] MEDS: LORazepam 1 MG TABLET 3 MG PO ×3 (08:47→22:05)
[2024-07-09] MEDS: Omeprazole 20 MG CAPSULE.DR PO (08:47)
[2024-07-09] MEDS: LOXAPINE 10 MG 3 EACH PO ×2 (08:48→22:09)
--- NOTE | 2024-07-09 10:29 | P.PNPSI_ITS ---
Subjective Subjective Date of Service: 07/09/24 Reason For Visit: Crisis Interim History: Slight improvement. More interactive. More visible but stays to self. Responds to questions with a delay. Some paranoia and preoccupation. Worried she will be forced to have ECT against her will. denies SI/HI/VH/AH. Keeping to self. per nursing, slept 8 hours last night. Review of Systems Review of Systems Constitutional : No Weight loss, No Fever, No Chills, No Night Sweats, No Fatigue, No Malaise ENT/Mouth : No Hearing loss, No Ear Pain, No Nasal Congestion, No Sinus Pain, No Hoarseness, No sore throat, No Rhinorrhea, No Swallowing Difficulty Eyes: No Eye Pain, No Swelling, No Redness, No Foreign Body, No Discharge, No Vision Changes Cardiovascular : No Chest Pain, No SOB, No Dyspnea on Exertion, No Orthopnea, No Edema, No Palpitations Respiratory : No Cough, No Sputum, No Wheezing, No Smoke Exposure, No Dyspnea Gastrointestinal : No Nausea, No Vomiting, No Diarrhea, No Constipation, No abdominal Pain, No Hematochezia, No Melena Genitourinary : no irregular bleeding, No Dysuria, No Urinary Frequency, No Hematuria, No Urinary Incontinence, No Urgency, No Flank Pain, No Urinary Flow Changes, No Hesitancy Musculoskeletal : No joint pain, No Myalgias, No Joint Swelling Skin : No Skin Lesions, No rash Neuro : No Weakness, No Numbness, No Paresthesias, No Loss of Consciousness, No Dizziness, No Headache Psych : No Anxiety/Panic, No Depression, no SI or HI Heme/Lymph: No Bruising, No Bleeding,No Lymphadenopathy Endocrine : No Polyuria, No Polydipsia, No Temperature Intolerance Constitutional: Reports as per HPI Eyes: Reports as per HPI Reports as per HPI Cardiovascular: Reports as per HPI Respiratory: Reports as per HPI Gastrointestinal: Reports as per HPI Musculoskeletal: Reports as per HPI Skin/Breast: Reports as per HPI Reports as per HPI Psychiatric: Reports as per HPI Endocrine: Reports as per HPI Hematologic/Lymphatic: Reports as per HPI Allergic/Immunologic: Reports as per HPI Mental Status Exam Mental Status Exam Narrative: Pt is alert and oriented; behavior is cooperative and calm; dressed in hospital attire; mood is described as anxious , blunted affect; eye contact appropriate; Speech is normal volume, not pressured;continues with slow speech but speech is more spontaneous, focused on discharge; denies SI/HI/VH/AH. Patient Appearance: Appropriate Patient Orientation: Person and Situation Level of Consciousness: Awake and Appropriate Patient Behavior: Guarded and Passive Mood Description: Withdrawn Affect Description: Constricted Patient Cognition Impaired: Yes Ability to Follow Directions: Good Speech Pattern: Clear Diagnostics Vital Signs (24Hr): Vital Signs - 24 hr 07/08/24 20:00 07/09/24 07:10 Temperature 98.2 F 97.8 F Pulse Rate 95 103 H Respiratory Rate 15 16 Blood Pressure 118/80 116/72 Pulse Oximetry 96 95 Oxygen Delivery Method Room Air Room Air BMI result Body Mass Index 30.9 Labs 06/22/24 17:54 06/23/24 19:02 Medications Medications Current Medications Acetaminophen (Acetaminophen 325 Mg Tablet) 650 mg PO Q6H PRN PRN Reason: Headache/Pain Mild Scale (1-3) Al Hydroxide/Mg Hydroxide (Magnesium Hydrox/Alum Hydrox 30 Ml Oral.Susp) 30 ml PO Q6H PRN PRN Reason: Heartburn/Nausea Last Admin: 07/06/24 09:36 Dose: 30 ml Calcium Carbonate (Calcium Carbonate 750 Mg Tab.Chew) 750 mg PO Q6H PRN PRN Reason: Heartburn Last Admin: 07/08/24 13:59 Dose: 750 mg Diphenhydramine HCl (Diphenhydramine Hcl 25 Mg Capsule) 50 mg PO BEDTIME [facility] Last Admin: 07/08/24 22:20 Dose: 50 mg Docusate Sodium (Docusate Sodium 100 Mg Capsule) 100 mg PO BID PRN PRN Reason: Constipation Last Admin: 07/09/24 08:47 Dose: 100 mg Hydroxyzine HCl (Hydroxyzine Hcl 25 Mg Tablet) 25 mg PO Q6H PRN PRN Reason: Anxiety Last Admin: 07/09/24 06:50 Dose: 25 mg Lorazepam (Lorazepam 1 Mg Tablet) 3 mg PO TID [facility] Last Admin: 07/09/24 08:47 Dose: 3 mg Magnesium Hydroxide (Milk Of Magnesia 30 Ml Oral.Susp) 30 ml PO DAILY PRN PRN Reason: Constipation Last Admin: 06/29/24 13:16 Dose: 30 ml Naltrexone HCl (Naltrexone Hcl 50 Mg Tablet) 50 mg PO DAILY PRN PRN Reason: Withdrawal Symptoms Last Admin: 06/29/24 14:39 Dose: 50 mg Nicotine Polacrilex (Nicotine Polacrilex Lozenge 2 Mg Lozenge) 2 mg BUCCAL Q1H PRN PRN Reason: Nicotine Cravings Last Admin: 06/25/24 06:52 Dose: 2 mg Pt Own (Loxapine 25 (Mg)) 25 mg PO BEDTIME [facility] Last Admin: 07/08/24 22:23 Dose: 25 mg Pt Own (Loxapine 10 (Mg)) 3 each PO BID [facility] Last Admin: 07/09/24 08:48 Dose: 3 each Nystatin (Nystatin Powder 15 Gm Bottle) 1 appl TOPICAL DAILY [facility]; Protocol Last Admin: 07/09/24 08:54 Dose: Not Given Omeprazole (Omeprazole 20 Mg Capsule.Dr) 20 mg PO DAILY [facility] Last Admin: 07/09/24 08:47 Dose: 20 mg Risperidone (Risperidone 1 Mg Tablet) 1 mg PO BEDTIME [facility] Last Admin: 07/08/24 22:19 Dose: 1 mg Trazodone HCl (Trazodone Hcl 100 Mg Tablet) 100 mg PO BEDTIME [facility] Last Admin: 07/08/24 22:19 Dose: 100 mg Allergies Allergies Allergy/AdvReac Type Severity Reaction Status Date / Time Penicillins [PENICILLINS] Allergy Unknown RASH Verified 06/22/24 14:24 quetiapine [From SEROQUEL] Allergy Unknown DYSTONIA Verified 06/22/24 14:24 Assessment & Plan Assessment & Plan (1) Schizoaffective disorder: Status: Acute Code(s): F25.9 - Schizoaffective disorder, unspecified (2) PTSD (post-traumatic stress disorder): Status: Acute Code(s): F43.10 - Post-traumatic stress disorder, unspecified (3) Alcohol use disorder: Status: Acute Code(s): F10.90 - Alcohol use, unspecified, uncomplicated Plan Patient is a 58-year-old female with history of schizoaffective disorder, PTSD and alcohol use disorder, who presented to ER via ambulance from [facility] due to increased depression and not attending to her ADLs secondary to medication noncompliance. Plan: 06/25 very psychotic (AH), with paranoid delusions. She also presents with catatonia like symptoms including blank staring. She is on 3 antidepressants high doses, that will only worsen psychosis. will dc wellbutrin, effexor, will cut down trazodone. Will increase ativan 1mg po TID. will continue loxepine. 06/26 continue tx. 06/27: Keeping to self. retracted 3 day notice. showered. thought blocking with delayed responses; when asked if this is normal for patient, she stated, this is what drugs and alcohol did to my brain . Patient anxious regarding ECT, she reports discussing ECT once with Dr. Alegre but don't want it ; pt was informed that was not part of the treatment plan at this time. She expressed concern regarding the cameras on the unit and asked if they are able to see her while she is in the shower or room; pt was educated that cameras are only in common areas. she denies SI/HI/VH/AH. Continue current tx plan. 06/28: pt continues thought blocking with delayed responses; please see SW note regarding pt's baseline and collateral obtained. Pt perseverative today regarding seeing her daughter before she dies; pt stated, I don't want to . My daughter has a retraining order on me and I want to see her before I . Start: Risperidal 1mg PO BID Increase Ativan to 2mg PO TID 06/29: Keeping to self. pt continues thought blocking with delayed responses; per nursing, was more fluid in conversation last evening. Pt perseverative today regarding not getting ECT; pt informed she is not scheduled to receive ECT. medication compliant. sign 3 day notice and retracted 3 day today. Continue current tx plan. 06/30: Patient is no longer presenting with thought blocking or delayed responses; she was able to have a fluid conversation. Patient stated, I feel good. I'm not anxious or depressed. 2020 is the last time something like this happened where I was talking really slow . She denies SI/HI/VH/AH. Plan to start tapering on Ativan if continues with current presentation tomorrow; pt aware. 07/01: Active on unit, social with peers. attending groups. Patient continues to report feeling good; pt stated, I feel like I'm back to normal . Discussed taper of Ativan. Ativan decreased to 1mg PO BID@0900,1500 and 2mg PO bedtime; denies SI/HI/VH/AH. per nursing, slept 8 hours. Plan to discharge back to [facility] on Thursday. 07/02 keep same treatment. 07/03 keep same treatment 07/04: Active on unit. Slower speech and thought process than Thursday. Increased Ativan back to 2mg PO TID; pt aware. Increased Risperidal to 1mg PO TID. Patient focused on her bed at [facility]; she is worried she will lose it if she stays inpatient too long . Discussed discharging this week back to [facility]. denies SI/HI/VH/AH. Per nursing, did not sleep well last night. 07/05: Continues with slow speech and thought process. Ordered additional dose of one time, Ativan 2mg PO. Decrease trazodone to 100mg PO bedtime. denies SI/HI/VH/AH. Per nursing, slept 7 hours. pt reports she does not feel ready to leave yet ; social work spoke to [facility] who reports they plan on holding her bed. 07/06: Active on unit. Continues with slow speech and some thought blocking. Ordered additional dose of one time, Ativan 2mg PO. Decrease risperidal to 1mg PO bedtime. denies SI/HI/VH/AH. Pt reports she is hoping to improve soon and return to [facility]. keeping to self. pleasant. 07/07: Continues with slow speech and some thought blocking. Increased Ativan to 3mg PO BID@0900,1500 and 2mg PO bedtime; pt aware. denies SI/HI/VH/AH. per social studies department chairAngeli, pt layed down on hallway floor this morning; when T/W asked pt why she did this, pt stated, I wanted attention . pt encouraged to speak with staff if she is in need of attention. 07/08: Speech and thought process appear to be improving. Patient stated, I feel like I'm starting to talk normally . Increased Ativan to 3mg PO TID; pt aware. denies SI/HI/VH/AH. Keeping to self. per nursing, slept 8 hours last night. 07/09: continue current management and treatment plan. Reason for continued inpatient stay Substantial Risk for: inability to function and rapid decompensation Time Spent With Patient Time: Total time managing care of this patient today ____ minutes.
[2024-07-09] MEDS: Calcium Carbonate 750 MG TAB.CHEW PO (15:02)
[2024-07-09 20:00] VITALS: BP 107/65; PULSE 100; RESP 16; TEMP 36.6; O2SAT 98
[2024-07-09] MEDS: diphenhydrAMINE HCL 25 MG CAPSULE 50 MG PO (22:06)
[2024-07-09] MEDS: traZODone HCL 100 MG TABLET PO (22:06)
[2024-07-09] MEDS: risperiDONE 1 MG TABLET PO (22:07)
[2024-07-09] MEDS: LOXAPINE 25 MG 25 EACH PO (22:09)
[2024-07-10 07:45] VITALS: BP 120/75; PULSE 105; RESP 12; TEMP 36.3; O2SAT 95
[2024-07-10] MEDS: LORazepam 1 MG TABLET 3 MG PO ×3 (08:47→21:19)
[2024-07-10] MEDS: Omeprazole 20 MG CAPSULE.DR PO (08:47)
[2024-07-10] MEDS: LOXAPINE 10 MG 3 EACH PO ×2 (08:50→21:18)
[2024-07-10] MEDS: Docusate Sodium 100 MG CAPSULE PO (09:22)
--- NOTE | 2024-07-10 09:55 | P.PNPSI_ITS ---
Subjective Subjective Date of Service: 07/10/24 Reason For Visit: Crisis Interim History: Says she feels good and would like to return to the [facility]. She is somewhat more interactive. Played cards with roommate. More interactive. More visible but stays mostly to self. Responds to questions with a delay. Some paranoia and preoccupation. Denies SI/HI/VH/AH. Review of Systems Review of Systems Constitutional : No Weight loss, No Fever, No Chills, No Night Sweats, No Fatigue, No Malaise ENT/Mouth : No Hearing loss, No Ear Pain, No Nasal Congestion, No Sinus Pain, No Hoarseness, No sore throat, No Rhinorrhea, No Swallowing Difficulty Eyes: No Eye Pain, No Swelling, No Redness, No Foreign Body, No Discharge, No Vision Changes Cardiovascular : No Chest Pain, No SOB, No Dyspnea on Exertion, No Orthopnea, No Edema, No Palpitations Respiratory : No Cough, No Sputum, No Wheezing, No Smoke Exposure, No Dyspnea Gastrointestinal : No Nausea, No Vomiting, No Diarrhea, No Constipation, No abdominal Pain, No Hematochezia, No Melena Genitourinary : no irregular bleeding, No Dysuria, No Urinary Frequency, No Hematuria, No Urinary Incontinence, No Urgency, No Flank Pain, No Urinary Flow Changes, No Hesitancy Musculoskeletal : No joint pain, No Myalgias, No Joint Swelling Skin : No Skin Lesions, No rash Neuro : No Weakness, No Numbness, No Paresthesias, No Loss of Consciousness, No Dizziness, No Headache Psych : No Anxiety/Panic, No Depression, no SI or HI Heme/Lymph: No Bruising, No Bleeding,No Lymphadenopathy Endocrine : No Polyuria, No Polydipsia, No Temperature Intolerance Constitutional: Reports as per HPI Eyes: Reports as per HPI Reports as per HPI Cardiovascular: Reports as per HPI Respiratory: Reports as per HPI Gastrointestinal: Reports as per HPI Musculoskeletal: Reports as per HPI Skin/Breast: Reports as per HPI Reports as per HPI Psychiatric: Reports as per HPI Endocrine: Reports as per HPI Hematologic/Lymphatic: Reports as per HPI Allergic/Immunologic: Reports as per HPI Mental Status Exam Mental Status Exam Narrative: Pt is alert and oriented; behavior is cooperative and calm; dressed in hospital attire; mood is described as anxious , blunted affect; eye contact appropriate; Speech is normal volume, not pressured;continues with slow speech but speech is more spontaneous, focused on discharge; denies SI/HI/VH/AH. Patient Appearance: Appropriate Patient Orientation: Person and Situation Level of Consciousness: Awake and Appropriate Patient Behavior: Guarded and Passive Mood Description: Withdrawn Affect Description: Constricted Patient Cognition Impaired: Yes Ability to Follow Directions: Good Speech Pattern: Clear Diagnostics Vital Signs (24Hr): Vital Signs - 24 hr 07/09/24 20:00 07/10/24 07:45 Temperature 97.8 F 97.4 F Pulse Rate 100 105 H Respiratory Rate 16 12 Blood Pressure 107/65 120/75 Pulse Oximetry 98 95 Oxygen Delivery Method Room Air Room Air BMI result Body Mass Index 30.9 Labs 06/22/24 17:54 06/23/24 19:02 Medications Medications Current Medications Acetaminophen (Acetaminophen 325 Mg Tablet) 650 mg PO Q6H PRN PRN Reason: Headache/Pain Mild Scale (1-3) Al Hydroxide/Mg Hydroxide (Magnesium Hydrox/Alum Hydrox 30 Ml Oral.Susp) 30 ml PO Q6H PRN PRN Reason: Heartburn/Nausea Last Admin: 07/06/24 09:36 Dose: 30 ml Calcium Carbonate (Calcium Carbonate 750 Mg Tab.Chew) 750 mg PO Q6H PRN PRN Reason: Heartburn Last Admin: 07/09/24 15:02 Dose: 750 mg Diphenhydramine HCl (Diphenhydramine Hcl 25 Mg Capsule) 50 mg PO BEDTIME [facility] Last Admin: 07/09/24 22:06 Dose: 50 mg Docusate Sodium (Docusate Sodium 100 Mg Capsule) 100 mg PO BID PRN PRN Reason: Constipation Last Admin: 07/10/24 09:22 Dose: 100 mg Hydroxyzine HCl (Hydroxyzine Hcl 25 Mg Tablet) 25 mg PO Q6H PRN PRN Reason: Anxiety Last Admin: 07/09/24 06:50 Dose: 25 mg Lorazepam (Lorazepam 1 Mg Tablet) 3 mg PO TID [facility] Last Admin: 07/10/24 08:47 Dose: 3 mg Magnesium Hydroxide (Milk Of Magnesia 30 Ml Oral.Susp) 30 ml PO DAILY PRN PRN Reason: Constipation Last Admin: 06/29/24 13:16 Dose: 30 ml Naltrexone HCl (Naltrexone Hcl 50 Mg Tablet) 50 mg PO DAILY PRN PRN Reason: Withdrawal Symptoms Last Admin: 06/29/24 14:39 Dose: 50 mg Nicotine Polacrilex (Nicotine Polacrilex Lozenge 2 Mg Lozenge) 2 mg BUCCAL Q1H PRN PRN Reason: Nicotine Cravings Last Admin: 06/25/24 06:52 Dose: 2 mg Pt Own (Loxapine 25 (Mg)) 25 mg PO BEDTIME [facility] Last Admin: 07/09/24 22:09 Dose: 25 mg Pt Own (Loxapine 10 (Mg)) 3 each PO BID [facility] Last Admin: 07/10/24 08:50 Dose: 3 each Nystatin (Nystatin Powder 15 Gm Bottle) 1 appl TOPICAL DAILY [facility]; Protocol Last Admin: 07/10/24 08:48 Dose: Not Given Omeprazole (Omeprazole 20 Mg Capsule.Dr) 20 mg PO DAILY [facility] Last Admin: 07/10/24 08:47 Dose: 20 mg Risperidone (Risperidone 1 Mg Tablet) 1 mg PO BEDTIME [facility] Last Admin: 07/09/24 22:07 Dose: 1 mg Trazodone HCl (Trazodone Hcl 100 Mg Tablet) 100 mg PO BEDTIME [facility] Last Admin: 07/09/24 22:06 Dose: 100 mg Allergies Allergies Allergy/AdvReac Type Severity Reaction Status Date / Time Penicillins [PENICILLINS] Allergy Unknown RASH Verified 06/22/24 14:24 quetiapine [From SEROQUEL] Allergy Unknown DYSTONIA Verified 06/22/24 14:24 Assessment & Plan Assessment & Plan (1) Schizoaffective disorder: Status: Acute Code(s): F25.9 - Schizoaffective disorder, unspecified (2) PTSD (post-traumatic stress disorder): Status: Acute Code(s): F43.10 - Post-traumatic stress disorder, unspecified (3) Alcohol use disorder: Status: Acute Code(s): F10.90 - Alcohol use, unspecified, uncomplicated Plan Patient is a 58-year-old female with history of schizoaffective disorder, PTSD and alcohol use disorder, who presented to ER via ambulance from [facility] due to increased depression and not attending to her ADLs secondary to medication noncompliance. Plan: 06/25 very psychotic (AH), with paranoid delusions. She also presents with catatonia like symptoms including blank staring. She is on 3 antidepressants high doses, that will only worsen psychosis. will dc wellbutrin, effexor, will cut down trazodone. Will increase ativan 1mg po TID. will continue loxepine. 06/26 continue tx. 06/27: Keeping to self. retracted 3 day notice. showered. thought blocking with delayed responses; when asked if this is normal for patient, she stated, this is what drugs and alcohol did to my brain . Patient anxious regarding ECT, she reports discussing ECT once with Dr. Alegre but don't want it ; pt was informed that was not part of the treatment plan at this time. She expressed concern regarding the cameras on the unit and asked if they are able to see her while she is in the shower or room; pt was educated that cameras are only in common areas. she denies SI/HI/VH/AH. Continue current tx plan. 06/28: pt continues thought blocking with delayed responses; please see SW note regarding pt's baseline and collateral obtained. Pt perseverative today regarding seeing her daughter before she dies; pt stated, I don't want to . My daughter has a retraining order on me and I want to see her before I . Start: Risperidal 1mg PO BID Increase Ativan to 2mg PO TID 06/29: Keeping to self. pt continues thought blocking with delayed responses; per nursing, was more fluid in conversation last evening. Pt perseverative today regarding not getting ECT; pt informed she is not scheduled to receive ECT. medication compliant. sign 3 day notice and retracted 3 day today. Continue current tx plan. 06/30: Patient is no longer presenting with thought blocking or delayed responses; she was able to have a fluid conversation. Patient stated, I feel good. I'm not anxious or depressed. 2020 is the last time something like this happened where I was talking really slow . She denies SI/HI/VH/AH. Plan to start tapering on Ativan if continues with current presentation tomorrow; pt aware. 07/01: Active on unit, social with peers. attending groups. Patient continues to report feeling good; pt stated, I feel like I'm back to normal . Discussed taper of Ativan. Ativan decreased to 1mg PO BID@0900,1500 and 2mg PO bedtime; denies SI/HI/VH/AH. per nursing, slept 8 hours. Plan to discharge back to [facility] on Thursday. 07/02 keep same treatment. 07/03 keep same treatment 07/04: Active on unit. Slower speech and thought process than Thursday. Increased Ativan back to 2mg PO TID; pt aware. Increased Risperidal to 1mg PO TID. Patient focused on her bed at [facility]; she is worried she will lose it if she stays inpatient too long . Discussed discharging this week back to [facility]. denies SI/HI/VH/AH. Per nursing, did not sleep well last night. 07/05: Continues with slow speech and thought process. Ordered additional dose of one time, Ativan 2mg PO. Decrease trazodone to 100mg PO bedtime. denies SI/HI/VH/AH. Per nursing, slept 7 hours. pt reports she does not feel ready to leave yet ; social work spoke to [facility] who reports they plan on holding her bed. 07/06: Active on unit. Continues with slow speech and some thought blocking. Ordered additional dose of one time, Ativan 2mg PO. Decrease risperidal to 1mg PO bedtime. denies SI/HI/VH/AH. Pt reports she is hoping to improve soon and return to [facility]. keeping to self. pleasant. 07/07: Continues with slow speech and some thought blocking. Increased Ativan to 3mg PO BID@0900,1500 and 2mg PO bedtime; pt aware. denies SI/HI/VH/AH. per social psychologistAngeli, pt layed down on hallway floor this morning; when T/W asked pt why she did this, pt stated, I wanted attention . pt encouraged to speak with staff if she is in need of attention. 07/08: Speech and thought process appear to be improving. Patient stated, I feel like I'm starting to talk normally . Increased Ativan to 3mg PO TID; pt aware. denies SI/HI/VH/AH. Keeping to self. per nursing, slept 8 hours last night. 07/09: continue current management and treatment plan. 07/10: Continue current management and treatment plan. Reason for continued inpatient stay Substantial Risk for: inability to function and rapid decompensation Time Spent With Patient Time: Total time managing care of this patient today ____ minutes.
[2024-07-10] MEDS: Milk of Magnesia 30 ML ORAL.SUSP PO (10:12)
[2024-07-10 20:00] VITALS: BP 94/60; PULSE 90; RESP 16; TEMP 36.4; O2SAT 96
[2024-07-10] MEDS: LOXAPINE 25 MG 25 EACH PO (21:17)
[2024-07-10] MEDS: traZODone HCL 100 MG TABLET PO (21:19)
[2024-07-10] MEDS: diphenhydrAMINE HCL 25 MG CAPSULE 50 MG PO (21:19)
[2024-07-10] MEDS: risperiDONE 1 MG TABLET PO (21:19)
[2024-07-11 07:43] VITALS: BP 105/66; PULSE 99; RESP 18; TEMP 36.4; O2SAT 98
[2024-07-11] MEDS: LORazepam 1 MG TABLET 3 MG PO ×3 (08:38→21:08)
[2024-07-11] MEDS: Omeprazole 20 MG CAPSULE.DR PO (08:39)
[2024-07-11] MEDS: LOXAPINE 10 MG 3 EACH PO ×2 (08:40→21:10)
[2024-07-11] MEDS: Calcium Carbonate 750 MG TAB.CHEW PO (10:16)
--- NOTE | 2024-07-11 10:21 | HO.PSYCHPN ---
Subjective Subjective Date of Service: 07/11/24 Reason For Visit: Crisis Subjective Notes: Conditional Voluntary Interim History: Active on unit, attending groups. Continues with slowed speech but more spontaneous with conversation. Pt reports she is hoping to be discharged back to [facility] soon. Showered. denies SI/HI/VH/AH. Medication Compliance: Yes Side effects from medications: No Attending Groups: Yes Mental Status Exam Mental Status Exam Narrative: Pt is alert and oriented; behavior is cooperative and calm; dressed in hospital attire; mood is described as anxious , blunted affect; eye contact appropriate; Speech is normal volume, not pressured;continues with slow speech but speech is more spontaneous, focused on discharge; denies SI/HI/VH/AH. Diagnostics Vital Signs (24Hr): Vital Signs - 24 hr 07/10/24 20:00 07/11/24 07:43 Temperature 97.5 F 97.6 F Pulse Rate 90 99 Respiratory Rate 16 18 Blood Pressure 94/60 105/66 Pulse Oximetry 96 98 Oxygen Delivery Method Room Air Room Air BMI result Body Mass Index 30.9 Labs 06/22/24 17:54 06/23/24 19:02 Medications Medications Current Medications Acetaminophen (Acetaminophen 325 Mg Tablet) 650 mg PO Q6H PRN PRN Reason: Headache/Pain Mild Scale (1-3) Al Hydroxide/Mg Hydroxide (Magnesium Hydrox/Alum Hydrox 30 Ml Oral.Susp) 30 ml PO Q6H PRN PRN Reason: Heartburn/Nausea Last Admin: 07/06/24 09:36 Dose: 30 ml Calcium Carbonate (Calcium Carbonate 750 Mg Tab.Chew) 750 mg PO Q6H PRN PRN Reason: Heartburn Last Admin: 07/11/24 10:16 Dose: 750 mg Diphenhydramine HCl (Diphenhydramine Hcl 25 Mg Capsule) 50 mg PO BEDTIME [facility] Last Admin: 07/10/24 21:19 Dose: 50 mg Docusate Sodium (Docusate Sodium 100 Mg Capsule) 100 mg PO BID PRN PRN Reason: Constipation Last Admin: 07/10/24 09:22 Dose: 100 mg Hydroxyzine HCl (Hydroxyzine Hcl 25 Mg Tablet) 25 mg PO Q6H PRN PRN Reason: Anxiety Last Admin: 07/09/24 06:50 Dose: 25 mg Lorazepam (Lorazepam 1 Mg Tablet) 3 mg PO TID [facility] Last Admin: 07/11/24 08:38 Dose: 3 mg Magnesium Hydroxide (Milk Of Magnesia 30 Ml Oral.Susp) 30 ml PO DAILY PRN PRN Reason: Constipation Last Admin: 07/10/24 10:12 Dose: 30 ml Naltrexone HCl (Naltrexone Hcl 50 Mg Tablet) 50 mg PO DAILY PRN PRN Reason: Withdrawal Symptoms Last Admin: 06/29/24 14:39 Dose: 50 mg Nicotine Polacrilex (Nicotine Polacrilex Lozenge 2 Mg Lozenge) 2 mg BUCCAL Q1H PRN PRN Reason: Nicotine Cravings Last Admin: 06/25/24 06:52 Dose: 2 mg Pt Own (Loxapine 25 (Mg)) 25 mg PO BEDTIME [facility] Last Admin: 07/10/24 21:17 Dose: 25 mg Pt Own (Loxapine 10 (Mg)) 3 each PO BID [facility] Last Admin: 07/11/24 08:40 Dose: 3 each Nystatin (Nystatin Powder 15 Gm Bottle) 1 appl TOPICAL DAILY [facility]; Protocol Last Admin: 07/11/24 08:42 Dose: Not Given Omeprazole (Omeprazole 20 Mg Capsule.Dr) 20 mg PO DAILY [facility] Last Admin: 07/11/24 08:39 Dose: 20 mg Risperidone (Risperidone 1 Mg Tablet) 1 mg PO BEDTIME [facility] Last Admin: 07/10/24 21:19 Dose: 1 mg Trazodone HCl (Trazodone Hcl 100 Mg Tablet) 100 mg PO BEDTIME [facility] Last Admin: 07/10/24 21:19 Dose: 100 mg Allergies Allergies Allergy/AdvReac Type Severity Reaction Status Date / Time Penicillins [PENICILLINS] Allergy Unknown RASH Verified 06/22/24 14:24 quetiapine [From SEROQUEL] Allergy Unknown DYSTONIA Verified 06/22/24 14:24 Assessment & Plan Assessment & Plan (1) Schizoaffective disorder: Status: Acute Code(s): F25.9 - Schizoaffective disorder, unspecified (2) PTSD (post-traumatic stress disorder): Status: Acute Code(s): F43.10 - Post-traumatic stress disorder, unspecified (3) Alcohol use disorder: Status: Acute Code(s): F10.90 - Alcohol use, unspecified, uncomplicated Plan Patient is a 58-year-old female with history of schizoaffective disorder, PTSD and alcohol use disorder, who presented to ER via ambulance from [facility] due to increased depression and not attending to her ADLs secondary to medication noncompliance. Plan: 06/25 very psychotic (AH), with paranoid delusions. She also presents with catatonia like symptoms including blank staring. She is on 3 antidepressants high doses, that will only worsen psychosis. will dc wellbutrin, effexor, will cut down trazodone. Will increase ativan 1mg po TID. will continue loxepine. 06/26 continue tx. 06/27: Keeping to self. retracted 3 day notice. showered. thought blocking with delayed responses; when asked if this is normal for patient, she stated, this is what drugs and alcohol did to my brain . Patient anxious regarding ECT, she reports discussing ECT once with Dr. Alegre but don't want it ; pt was informed that was not part of the treatment plan at this time. She expressed concern regarding the cameras on the unit and asked if they are able to see her while she is in the shower or room; pt was educated that cameras are only in common areas. she denies SI/HI/VH/AH. Continue current tx plan. 06/28: pt continues thought blocking with delayed responses; please see SW note regarding pt's baseline and collateral obtained. Pt perseverative today regarding seeing her daughter before she dies; pt stated, I don't want to . My daughter has a retraining order on me and I want to see her before I . Start: Risperidal 1mg PO BID Increase Ativan to 2mg PO TID 06/29: Keeping to self. pt continues thought blocking with delayed responses; per nursing, was more fluid in conversation last evening. Pt perseverative today regarding not getting ECT; pt informed she is not scheduled to receive ECT. medication compliant. sign 3 day notice and retracted 3 day today. Continue current tx plan. 06/30: Patient is no longer presenting with thought blocking or delayed responses; she was able to have a fluid conversation. Patient stated, I feel good. I'm not anxious or depressed. 2020 is the last time something like this happened where I was talking really slow . She denies SI/HI/VH/AH. Plan to start tapering on Ativan if continues with current presentation tomorrow; pt aware. 07/01: Active on unit, social with peers. attending groups. Patient continues to report feeling good; pt stated, I feel like I'm back to normal . Discussed taper of Ativan. Ativan decreased to 1mg PO BID@0900,1500 and 2mg PO bedtime; denies SI/HI/VH/AH. per nursing, slept 8 hours. Plan to discharge back to [facility] on Thursday. 07/02 keep same treatment. 07/03 keep same treatment 07/04: Active on unit. Slower speech and thought process than Thursday. Increased Ativan back to 2mg PO TID; pt aware. Increased Risperidal to 1mg PO TID. Patient focused on her bed at [facility]; she is worried she will lose it if she stays inpatient too long . Discussed discharging this week back to [facility]. denies SI/HI/VH/AH. Per nursing, did not sleep well last night. 07/05: Continues with slow speech and thought process. Ordered additional dose of one time, Ativan 2mg PO. Decrease trazodone to 100mg PO bedtime. denies SI/HI/VH/AH. Per nursing, slept 7 hours. pt reports she does not feel ready to leave yet ; social work spoke to [facility] who reports they plan on holding her bed. 07/06: Active on unit. Continues with slow speech and some thought blocking. Ordered additional dose of one time, Ativan 2mg PO. Decrease risperidal to 1mg PO bedtime. denies SI/HI/VH/AH. Pt reports she is hoping to improve soon and return to [facility]. keeping to self. pleasant. 07/07: Continues with slow speech and some thought blocking. Increased Ativan to 3mg PO BID@0900,1500 and 2mg PO bedtime; pt aware. denies SI/HI/VH/AH. per socially responsible investment adviserAngeli, pt layed down on hallway floor this morning; when T/W asked pt why she did this, pt stated, I wanted attention . pt encouraged to speak with staff if she is in need of attention. 07/08: Speech and thought process appear to be improving. Patient stated, I feel like I'm starting to talk normally . Increased Ativan to 3mg PO TID; pt aware. denies SI/HI/VH/AH. Keeping to self. per nursing, slept 8 hours last night. 07/09: continue current management and treatment plan. 07/10: Continue current management and treatment plan. 07/11:Active on unit, attending groups. Continues with slowed speech but more spontaneous with conversation. Pt reports she is hoping to be discharged back to [facility] soon. Showered. denies SI/HI/VH/AH. continue current tx plan Patient educated on: diagnosis and medication risk/benefits Reason for continued inpatient stay Substantial Risk for: med/psych decompensation Time Spent With Patient Time: Total time managing care of this patient today _20___ minutes.
[2024-07-11 20:00] VITALS: BP 135/80; PULSE 81; TEMP 36.7; O2SAT 97
[2024-07-11] MEDS: risperiDONE 1 MG TABLET PO (21:09)
[2024-07-11] MEDS: diphenhydrAMINE HCL 25 MG CAPSULE 50 MG PO (21:09)
[2024-07-11] MEDS: traZODone HCL 100 MG TABLET PO (21:10)
[2024-07-11] MEDS: LOXAPINE 25 MG 25 EACH PO (21:12)
[2024-07-12] MEDS: Nicotine Polacrilex Lozenge 2 MG LOZENGE BUCCAL (07:13)
[2024-07-12 07:33] VITALS: BP 125/82; PULSE 96; RESP 16; TEMP 36.4; O2SAT 97
[2024-07-12] MEDS: LOXAPINE 10 MG 3 EACH PO ×2 (08:21→20:18)
[2024-07-12] MEDS: Omeprazole 20 MG CAPSULE.DR PO (08:21)
[2024-07-12] MEDS: LORazepam 1 MG TABLET 3 MG PO ×3 (08:22→20:17)
--- NOTE | 2024-07-12 08:59 | P.PNPSI_ITS ---
Subjective Subjective Date of Service: 07/12/24 Reason For Visit: Crisis Subjective Notes: Conditional Voluntary Interim History: Active on unit, attending groups. showered. DC'd hydroxyzine, benadryl and risperdal; pt aware. Speech improving; organized and not appearing thought blocked today. Patient stated, I'm feeling normal. I want to go back to the [facility] and do my AA meetings and treatment . denies SI/HI/VH/AH. protective services social worker, Angeli, spoke to staff at [facility] who reports patient sounds better ; please see note. Plan to discharge this week if patient continues to improve. Medication Compliance: Yes Side effects from medications: No Attending Groups: Yes Review of Systems Constitutional: Reports as per HPI Eyes: Reports as per HPI Reports as per HPI Cardiovascular: Reports as per HPI Respiratory: Reports as per HPI Gastrointestinal: Reports as per HPI Musculoskeletal: Reports as per HPI Skin/Breast: Reports as per HPI Reports as per HPI Psychiatric: Reports as per HPI Endocrine: Reports as per HPI Hematologic/Lymphatic: Reports as per HPI Allergic/Immunologic: Reports as per HPI Mental Status Exam Mental Status Exam Narrative: Pt is alert and oriented; behavior is cooperative and calm; dressed in hospital attire; mood is described as good ; eye contact appropriate; Speech is normal volume, rate and not pressured; speech is more spontaneous; organized;focused on discharge; denies SI/HI/VH/AH. Diagnostics Vital Signs (24Hr): Vital Signs - 24 hr 07/11/24 20:00 07/12/24 07:33 Temperature 98.0 F 97.6 F Pulse Rate 81 96 Respiratory Rate 16 Blood Pressure 135/80 125/82 Pulse Oximetry 97 97 Oxygen Delivery Method Room Air Room Air BMI result Body Mass Index 30.9 Labs 06/22/24 17:54 06/23/24 19:02 Medications Medications Current Medications Acetaminophen (Acetaminophen 325 Mg Tablet) 650 mg PO Q6H PRN PRN Reason: Headache/Pain Mild Scale (1-3) Al Hydroxide/Mg Hydroxide (Magnesium Hydrox/Alum Hydrox 30 Ml Oral.Susp) 30 ml PO Q6H PRN PRN Reason: Heartburn/Nausea Last Admin: 07/06/24 09:36 Dose: 30 ml Calcium Carbonate (Calcium Carbonate 750 Mg Tab.Chew) 750 mg PO Q6H PRN PRN Reason: Heartburn Last Admin: 07/11/24 10:16 Dose: 750 mg Docusate Sodium (Docusate Sodium 100 Mg Capsule) 100 mg PO BID PRN PRN Reason: Constipation Last Admin: 07/10/24 09:22 Dose: 100 mg Lorazepam (Lorazepam 1 Mg Tablet) 3 mg PO TID [facility] Last Admin: 07/12/24 08:22 Dose: 3 mg Lorazepam (Lorazepam 1 Mg Tablet) 1 mg PO ONCE STA Stop: 07/12/24 08:57 Magnesium Hydroxide (Milk Of Magnesia 30 Ml Oral.Susp) 30 ml PO DAILY PRN PRN Reason: Constipation Last Admin: 07/10/24 10:12 Dose: 30 ml Naltrexone HCl (Naltrexone Hcl 50 Mg Tablet) 50 mg PO DAILY PRN PRN Reason: Withdrawal Symptoms Last Admin: 06/29/24 14:39 Dose: 50 mg Nicotine Polacrilex (Nicotine Polacrilex Lozenge 2 Mg Lozenge) 2 mg BUCCAL Q1H PRN PRN Reason: Nicotine Cravings Last Admin: 07/12/24 07:13 Dose: 2 mg Pt Own (Loxapine 25 (Mg)) 25 mg PO BEDTIME [facility] Last Admin: 07/11/24 21:12 Dose: 25 mg Pt Own (Loxapine 10 (Mg)) 3 each PO BID [facility] Last Admin: 07/12/24 08:21 Dose: 3 each Omeprazole (Omeprazole 20 Mg Capsule.Dr) 20 mg PO DAILY [facility] Last Admin: 07/12/24 08:21 Dose: 20 mg Trazodone HCl (Trazodone Hcl 100 Mg Tablet) 100 mg PO BEDTIME [facility] Last Admin: 07/11/24 21:10 Dose: 100 mg Allergies Allergies Allergy/AdvReac Type Severity Reaction Status Date / Time Penicillins [PENICILLINS] Allergy Unknown RASH Verified 06/22/24 14:24 quetiapine [From SEROQUEL] Allergy Unknown DYSTONIA Verified 06/22/24 14:24 Assessment & Plan Assessment & Plan (1) Schizoaffective disorder: Status: Acute Code(s): F25.9 - Schizoaffective disorder, unspecified (2) PTSD (post-traumatic stress disorder): Status: Acute Code(s): F43.10 - Post-traumatic stress disorder, unspecified (3) Alcohol use disorder: Status: Acute Code(s): F10.90 - Alcohol use, unspecified, uncomplicated Plan Patient is a 58-year-old female with history of schizoaffective disorder, PTSD and alcohol use disorder, who presented to ER via ambulance from [facility] due to increased depression and not attending to her ADLs secondary to medication noncompliance. Plan: 06/25 very psychotic (AH), with paranoid delusions. She also presents with catatonia like symptoms including blank staring. She is on 3 antidepressants high doses, that will only worsen psychosis. will dc wellbutrin, effexor, will cut down trazodone. Will increase ativan 1mg po TID. will continue loxepine. 06/26 continue tx. 06/27: Keeping to self. retracted 3 day notice. showered. thought blocking with delayed responses; when asked if this is normal for patient, she stated, this is what drugs and alcohol did to my brain . Patient anxious regarding ECT, she reports discussing ECT once with Dr. Alegre but don't want it ; pt was informed that was not part of the treatment plan at this time. She expressed concern regarding the cameras on the unit and asked if they are able to see her while she is in the shower or room; pt was educated that cameras are only in common areas. she denies SI/HI/VH/AH. Continue current tx plan. 06/28: pt continues thought blocking with delayed responses; please see SW note regarding pt's baseline and collateral obtained. Pt perseverative today regarding seeing her daughter before she dies; pt stated, I don't want to . My daughter has a retraining order on me and I want to see her before I . Start: Risperidal 1mg PO BID Increase Ativan to 2mg PO TID 06/29: Keeping to self. pt continues thought blocking with delayed responses; per nursing, was more fluid in conversation last evening. Pt perseverative today regarding not getting ECT; pt informed she is not scheduled to receive ECT. medication compliant. sign 3 day notice and retracted 3 day today. Continue current tx plan. 06/30: Patient is no longer presenting with thought blocking or delayed responses; she was able to have a fluid conversation. Patient stated, I feel good. I'm not anxious or depressed. 2020 is the last time something like this happened where I was talking really slow . She denies SI/HI/VH/AH. Plan to start tapering on Ativan if continues with current presentation tomorrow; pt aware. 07/01: Active on unit, social with peers. attending groups. Patient continues to report feeling good; pt stated, I feel like I'm back to normal . Discussed taper of Ativan. Ativan decreased to 1mg PO BID@0900,1500 and 2mg PO bedtime; denies SI/HI/VH/AH. per nursing, slept 8 hours. Plan to discharge back to [facility] on Thursday. 07/02 keep same treatment. 07/03 keep same treatment 07/04: Active on unit. Slower speech and thought process than Thursday. Increased Ativan back to 2mg PO TID; pt aware. Increased Risperidal to 1mg PO TID. Patient focused on her bed at [facility]; she is worried she will lose it if she stays inpatient too long . Discussed discharging this week back to [facility]. denies SI/HI/VH/AH. Per nursing, did not sleep well last night. 07/05: Continues with slow speech and thought process. Ordered additional dose of one time, Ativan 2mg PO. Decrease trazodone to 100mg PO bedtime. denies SI/HI/VH/AH. Per nursing, slept 7 hours. pt reports she does not feel ready to leave yet ; social work spoke to [facility] who reports they plan on holding her bed. 07/06: Active on unit. Continues with slow speech and some thought blocking. Ordered additional dose of one time, Ativan 2mg PO. Decrease risperidal to 1mg PO bedtime. denies SI/HI/VH/AH. Pt reports she is hoping to improve soon and return to [facility]. keeping to self. pleasant. 07/07: Continues with slow speech and some thought blocking. Increased Ativan to 3mg PO BID@0900,1500 and 2mg PO bedtime; pt aware. denies SI/HI/VH/AH. per social sciences lecturer, Angeli, pt layed down on hallway floor this morning; when T/W asked pt why she did this, pt stated, I wanted attention . pt encouraged to speak with staff if she is in need of attention. 07/08: Speech and thought process appear to be improving. Patient stated, I feel like I'm starting to talk normally . Increased Ativan to 3mg PO TID; pt aware. denies SI/HI/VH/AH. Keeping to self. per nursing, slept 8 hours last night. 07/09: continue current management and treatment plan. 07/10: Continue current management and treatment plan. 07/11:Active on unit, attending groups. Continues with slowed speech but more spontaneous with conversation. Pt reports she is hoping to be discharged back to [facility] soon. Showered. denies SI/HI/VH/AH. continue current tx plan 07/12: Active on unit, attending groups. showered. DC'd hydroxyzine, benadryl and risperdal; pt aware. Speech improving; organized and not appearing thought blocked today. Patient stated, I'm feeling normal. I want to go back to the [facility] and do my AA meetings and treatment . denies SI/HI/VH/AH. protective services social worker, Angeli, spoke to staff at [facility] who reports patient sounds better ; please see note. Plan to discharge this week if patient continues to improve. Patient educated on: diagnosis, medication risk/benefits and therapeutic strategies Reason for continued inpatient stay Substantial Risk for: med/psych decompensation Time Spent With Patient Time: Total time managing care of this patient today _20___ minutes.
[2024-07-12] MEDS: LORazepam 1 MG TABLET PO (09:06)
[2024-07-12 20:00] VITALS: BP 123/72; PULSE 87; RESP 16; TEMP 36.8; O2SAT 94
[2024-07-12] MEDS: traZODone HCL 100 MG TABLET PO (20:17)
[2024-07-12] MEDS: LOXAPINE 25 MG 25 EACH PO (20:19)
[2024-07-12] MEDS: Magnesium Hydrox/Alum Hydrox 30 ML ORAL.SUSP PO (20:29)
[2024-07-13 07:35] VITALS: BP 126/82; PULSE 101; RESP 16; TEMP 36.4; O2SAT 99
[2024-07-13] MEDS: Omeprazole 20 MG CAPSULE.DR PO (08:51)
[2024-07-13] MEDS: LOXAPINE 10 MG 3 EACH PO ×2 (08:52→22:04)
[2024-07-13] MEDS: LORazepam 1 MG TABLET 3 MG PO ×3 (08:52→22:02)
--- NOTE | 2024-07-13 08:56 | P.PNPSI_ITS ---
Subjective Subjective Date of Service: 07/13/24 Reason For Visit: Crisis Subjective Notes: Conditional Voluntary Interim History: Active on unit, attending groups. showered. Speech continues to improve; organized. Patient reports feeling good today; pt stated, I can't wait to get back to the [facility] and focused on staying sober . denies SI/HI/VH/AH. Plan to discharge tomorrow. Medication Compliance: Yes Side effects from medications: No Attending Groups: Yes Review of Systems Constitutional: Reports as per HPI Eyes: Reports as per HPI Reports as per HPI Cardiovascular: Reports as per HPI Respiratory: Reports as per HPI Gastrointestinal: Reports as per HPI Musculoskeletal: Reports as per HPI Skin/Breast: Reports as per HPI Reports as per HPI Psychiatric: Reports as per HPI Endocrine: Reports as per HPI Hematologic/Lymphatic: Reports as per HPI Allergic/Immunologic: Reports as per HPI Mental Status Exam Mental Status Exam Narrative: Pt is alert and oriented; behavior is cooperative and calm; dressed in hospital attire; mood is described as good ; eye contact appropriate; Speech is normal volume, rate and not pressured; organized;focused on discharge and sobriety; denies SI/HI/VH/AH. Diagnostics Vital Signs (24Hr): Vital Signs - 24 hr 07/12/24 20:00 07/13/24 07:35 Temperature 98.3 F 97.5 F Pulse Rate 87 101 H Respiratory Rate 16 16 Blood Pressure 123/72 126/82 Pulse Oximetry 94 99 Oxygen Delivery Method Room Air Room Air BMI result Body Mass Index 30.9 Labs 06/22/24 17:54 06/23/24 19:02 Medications Medications Current Medications Acetaminophen (Acetaminophen 325 Mg Tablet) 650 mg PO Q6H PRN PRN Reason: Headache/Pain Mild Scale (1-3) Al Hydroxide/Mg Hydroxide (Magnesium Hydrox/Alum Hydrox 30 Ml Oral.Susp) 30 ml PO Q6H PRN PRN Reason: Heartburn/Nausea Last Admin: 07/12/24 20:29 Dose: 30 ml Calcium Carbonate (Calcium Carbonate 750 Mg Tab.Chew) 750 mg PO Q6H PRN PRN Reason: Heartburn Last Admin: 07/11/24 10:16 Dose: 750 mg Docusate Sodium (Docusate Sodium 100 Mg Capsule) 100 mg PO BID PRN PRN Reason: Constipation Last Admin: 07/10/24 09:22 Dose: 100 mg Lorazepam (Lorazepam 1 Mg Tablet) 3 mg PO TID [facility] Last Admin: 07/13/24 08:52 Dose: 3 mg Magnesium Hydroxide (Milk Of Magnesia 30 Ml Oral.Susp) 30 ml PO DAILY PRN PRN Reason: Constipation Last Admin: 07/10/24 10:12 Dose: 30 ml Naltrexone HCl (Naltrexone Hcl 50 Mg Tablet) 50 mg PO DAILY PRN PRN Reason: Withdrawal Symptoms Last Admin: 06/29/24 14:39 Dose: 50 mg Nicotine Polacrilex (Nicotine Polacrilex Lozenge 2 Mg Lozenge) 2 mg BUCCAL Q1H PRN PRN Reason: Nicotine Cravings Last Admin: 07/12/24 07:13 Dose: 2 mg Pt Own (Loxapine 25 (Mg)) 25 mg PO BEDTIME [facility] Last Admin: 07/12/24 20:19 Dose: 25 mg Pt Own (Loxapine 10 (Mg)) 3 each PO BID [facility] Last Admin: 07/13/24 08:52 Dose: 3 each Omeprazole (Omeprazole 20 Mg Capsule.Dr) 20 mg PO DAILY [facility] Last Admin: 07/13/24 08:51 Dose: 20 mg Trazodone HCl (Trazodone Hcl 100 Mg Tablet) 100 mg PO BEDTIME [facility] Last Admin: 07/12/24 20:17 Dose: 100 mg Allergies Allergies Allergy/AdvReac Type Severity Reaction Status Date / Time Penicillins [PENICILLINS] Allergy Unknown RASH Verified 06/22/24 14:24 quetiapine [From SEROQUEL] Allergy Unknown DYSTONIA Verified 06/22/24 14:24 Assessment & Plan Assessment & Plan (1) Schizoaffective disorder: Status: Acute Code(s): F25.9 - Schizoaffective disorder, unspecified (2) PTSD (post-traumatic stress disorder): Status: Acute Code(s): F43.10 - Post-traumatic stress disorder, unspecified (3) Alcohol use disorder: Status: Acute Code(s): F10.90 - Alcohol use, unspecified, uncomplicated Plan Patient is a 58-year-old female with history of schizoaffective disorder, PTSD and alcohol use disorder, who presented to ER via ambulance from [facility] due to increased depression and not attending to her ADLs secondary to medication noncompliance. Plan: 06/25 very psychotic (AH), with paranoid delusions. She also presents with catatonia like symptoms including blank staring. She is on 3 antidepressants high doses, that will only worsen psychosis. will dc wellbutrin, effexor, will cut down trazodone. Will increase ativan 1mg po TID. will continue loxepine. 06/26 continue tx. 06/27: Keeping to self. retracted 3 day notice. showered. thought blocking with delayed responses; when asked if this is normal for patient, she stated, this is what drugs and alcohol did to my brain . Patient anxious regarding ECT, she reports discussing ECT once with Dr. Alegre but don't want it ; pt was informed that was not part of the treatment plan at this time. She expressed concern regarding the cameras on the unit and asked if they are able to see her while she is in the shower or room; pt was educated that cameras are only in common areas. she denies SI/HI/VH/AH. Continue current tx plan. 06/28: pt continues thought blocking with delayed responses; please see SW note regarding pt's baseline and collateral obtained. Pt perseverative today regarding seeing her daughter before she dies; pt stated, I don't want to . My daughter has a retraining order on me and I want to see her before I . Start: Risperidal 1mg PO BID Increase Ativan to 2mg PO TID 06/29: Keeping to self. pt continues thought blocking with delayed responses; per nursing, was more fluid in conversation last evening. Pt perseverative today regarding not getting ECT; pt informed she is not scheduled to receive ECT. medication compliant. sign 3 day notice and retracted 3 day today. Continue current tx plan. 06/30: Patient is no longer presenting with thought blocking or delayed responses; she was able to have a fluid conversation. Patient stated, I feel good. I'm not anxious or depressed. 2019 is the last time something like this happened where I was talking really slow . She denies SI/HI/VH/AH. Plan to start tapering on Ativan if continues with current presentation tomorrow; pt aware. 07/01: Active on unit, social with peers. attending groups. Patient continues to report feeling good; pt stated, I feel like I'm back to normal . Discussed taper of Ativan. Ativan decreased to 1mg PO BID@0900,1500 and 2mg PO bedtime; denies SI/HI/VH/AH. per nursing, slept 8 hours. Plan to discharge back to [facility] on Thursday. 07/02 keep same treatment. 07/03 keep same treatment 07/04: Active on unit. Slower speech and thought process than Thursday. Increased Ativan back to 2mg PO TID; pt aware. Increased Risperidal to 1mg PO TID. Patient focused on her bed at [facility]; she is worried she will lose it if she stays inpatient too long . Discussed discharging this week back to [facility]. denies SI/HI/VH/AH. Per nursing, did not sleep well last night. 07/05: Continues with slow speech and thought process. Ordered additional dose of one time, Ativan 2mg PO. Decrease trazodone to 100mg PO bedtime. denies SI/HI/VH/AH. Per nursing, slept 7 hours. pt reports she does not feel ready to leave yet ; social work spoke to [facility] who reports they plan on holding her bed. 07/06: Active on unit. Continues with slow speech and some thought blocking. Ordered additional dose of one time, Ativan 2mg PO. Decrease risperidal to 1mg PO bedtime. denies SI/HI/VH/AH. Pt reports she is hoping to improve soon and return to [facility]. keeping to self. pleasant. 07/07: Continues with slow speech and some thought blocking. Increased Ativan to 3mg PO BID@0900,1500 and 2mg PO bedtime; pt aware. denies SI/HI/VH/AH. per long term care social worker, Angeli, pt layed down on hallway floor this morning; when T/W asked pt why she did this, pt stated, I wanted attention . pt encouraged to speak with staff if she is in need of attention. 07/08: Speech and thought process appear to be improving. Patient stated, I feel like I'm starting to talk normally . Increased Ativan to 3mg PO TID; pt aware. denies SI/HI/VH/AH. Keeping to self. per nursing, slept 8 hours last night. 07/09: continue current management and treatment plan. 07/10: Continue current management and treatment plan. 07/11:Active on unit, attending groups. Continues with slowed speech but more spontaneous with conversation. Pt reports she is hoping to be discharged back to [facility] soon. Showered. denies SI/HI/VH/AH. continue current tx plan 07/12: Active on unit, attending groups. showered. DC'd hydroxyzine, benadryl and risperdal; pt aware. Speech improving; organized and not appearing thought blocked today. Patient stated, I'm feeling normal. I want to go back to the [facility] and do my AA meetings and treatment . denies SI/HI/VH/AH. loft worker head, Angeli, spoke to staff at [facility] who reports patient sounds better ; please see note. Plan to discharge this week if patient continues to improve. 07/13: Active on unit, attending groups. showered. Speech continues to improve; organized. Patient reports feeling good today; pt stated, I can't wait to get back to the [facility] and focused on staying sober . denies SI/HI/VH/AH. Plan to discharge tomorrow. Patient educated on: diagnosis and medication risk/benefits Reason for continued inpatient stay Substantial Risk for: stable for discharge Time Spent With Patient Time: Total time managing care of this patient today _20___ minutes.
[2024-07-13] MEDS: Docusate Sodium 100 MG CAPSULE PO (09:23)
[2024-07-13 20:00] VITALS: BP 141/84; PULSE 92; RESP 16; TEMP 36.5; O2SAT 98
[2024-07-13] MEDS: traZODone HCL 100 MG TABLET PO (22:02)
[2024-07-13] MEDS: LOXAPINE 25 MG 25 EACH PO (22:03)
[2024-07-14 07:44] VITALS: BP 113/79; PULSE 105; RESP 18; TEMP 36.6; O2SAT 97
[2024-07-14] MEDS: LOXAPINE 10 MG 3 EACH PO (08:42)
[2024-07-14] MEDS: LORazepam 1 MG TABLET 3 MG PO (08:42)
[2024-07-14] MEDS: Omeprazole 20 MG CAPSULE.DR PO (08:42)
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
--- NOTE | 2024-07-14 10:51 | PC.NURSE ---
Patient easily engaged. Anxious. In need of frequent reassurance regarding return to [facility]. Reports she is ready for discharge. Feels mood has improved. Denies SI/HI at this time. Persistently at desk seeking reassurance, difficult to redirect. No reported perceptual disturbances, no overt psychosis or expressed delusions. Discharge paperwork reviewed with patient, reports understanding. Medications reviewed with patient reports understanding. Aftercare appointment reviewed with patient reports understanding. All belongings taken with patient. Crisis numbers provided.
== END 2024-07-14 10:12 | disposition home or self-care (01) | DRG 885 ==
LOC: HO.ED 06-23 13:19 → HO.PADLT16 06-23 13:52
PROVIDERS: Admitting Provider Registered Nurse; Emergency Provider Emergency Medicine; Responsible Provider Registered Nurse; Visit Provider Psychiatry & Neurology Psychiatry
DX: F25.9 Schizoaffective disorder, unspecified (principal); F17.210 Nicotine dependence, cigarettes, uncomplicated; F10.90 Alcohol use, unspecified, uncomplicated; Z71.6 Tobacco abuse counseling; Z79.899 Other long term (current) drug therapy
CPT/HCPCS: 36415; 80048; 80053; 80061; 80076; 80143; 80179; 80307; 81001; 85025; 87086; 93005; 99284; S9485

== ENCOUNTER → 2024-06-23 08:11 | Outpatient (BNV) | payer OTHER, SELFPAY | PROVIDERS: Emergency Provider Emergency Medicine; Visit Provider Internal Medicine | DX: R94.31 Abnormal electrocardiogram [ECG] [EKG] (principal) | CPT/HCPCS: 93010 ==

== ENCOUNTER → 2024-06-23 13:52 | Outpatient (BNV) | payer OTHER, SELFPAY | PROVIDERS: Admitting Provider Registered Nurse; Emergency Provider Emergency Medicine; Responsible Provider Registered Nurse; Visit Provider Registered Nurse | DX: F25.9 Schizoaffective disorder, unspecified (principal); F43.10 Post-traumatic stress disorder, unspecified; F10.90 Alcohol use, unspecified, uncomplicated | CPT/HCPCS: 90792 ==